=== PATIENT | female | born 1990 | race Caucasian/White ===

== ENCOUNTER 2018-09-15 07:35 | Emergency (ER) | payer SELFPAY ==
--- OUTSIDE RECORDS SUMMARY | 2018-09-15 07:37 | XMS REPORT ---
:1990 [facility] Address [address] [place] [address] [place] [id number] Care Team Providers Name Role Phone Unavailable Unavailable Unavailable Problems This patient has no known problems. Allergies, Adverse Reactions, Alerts This patient has no known allergies or adverse reactions. Medications This patient has no known medications.
--- OUTSIDE RECORDS SUMMARY | 2018-09-15 07:37 | XMS REPORT | Summary of Care ---
:1990 Author Organization [facility] Address [address] [place] [id number] Care Team Providers Name Role Phone Rosario Cortez CHARGER OPERATOR Primary Care Provider Reason for Visit Reason Comments Assessment constipation / nausea Encounter Details Date Type Department Care Team Description 09/10/2018 [facility]phone [facility], Assessment [place] CHARGER OPERATOR (constipation / [address] nausea) [place], [place] [address] [address] [address] [phone] [place] [id number] Allergies No Known Allergiesdocumented as of this encounter (statuses as of 09/10/2018) Medications Medication Sig Dispensed Refills Start Date End Date Status traMADOL 50 mg tablet Take 1 tablet by 12 tablet 0 05/10/2017 Active mouth every 4 (four) hours as needed for Pain (scale 1-3). ibuprofen 800 mg Take 1 tablet by 45 tablet 0 05/10/2017 Active tablet mouth every 6 (six) hours as needed for Pain (scale 1-3) or Pain (scale 4-6). FLUoxetine (PROZAC) Take 1 capsule by 30 capsule 0 07/24/2017 Active 20 mg mouth daily. capsuleIndications: depression documented as of this encounter (statuses as of 09/10/2018) Active Problems Problem Noted Date Right tubal without intrauterine 05/10/2017 Pelvic pain 05/10/2017 Hemoperitoneum due to rupture of right tubal ectopic 05/10/2017 Female pelvic peritoneal adhesions 05/10/2017 Adhesions involving left fallopian tube 05/10/2017 Adhesions involving right fallopian tube 05/10/2017 Well woman exam with routine gynecological exam 04/02/2016 BV (bacterial vaginosis) 10/24/2014 Tobacco use disorder 12/16/2012 documented as of this encounter (statuses as of 09/10/2018) Resolved Problems Problem Noted Date Resolved Date Encounter for routine gynecological examination 10/24/2014 04/02/2016 Overview: ICD10 Diagnosis Term Sec Reporting Consultant Utility Screening for STD (sexually transmitted disease) 10/24/2014 04/02/2016 Surveillance of previously prescribed contraceptive pill 10/24/20142017 Overweight 10/24/2014 04/02/2016 Overview: ICD10 Diagnosis Term Sec Reporting Consultant Utility Seeking 12/22/2012 10/24/2014 Metrorrhagia 12/16/2012 10/24/2014 documented as of this encounter (statuses as of 09/10/2018) Immunizations Name Administration Dates Next Due Td 02/16/2010 documented as of this encounter Social History Tobacco Use Types Packs/Day Years Used Date Current Some Day Smoker Cigarettes Smokeless Tobacco: Never Used Comments: smokes occasionally when she drinks Alcohol Use Drinks/Week oz/Week Comments Yes 0 Standard drinks or equivalent 0.0 socially Sex Assigned at Date Recorded Not on file Job Start Date Occupation Industry Not on file Not on file Not on file Travel History Travel Start Travel End No recent travel history available. documented as of this encounter Last Filed Vital Signs Not on filedocumented in this encounter Plan of Treatment Date Type Specialty Care Team Description 09/13/2018 [facility]2018 Initial Visit OB Satellites Zeynep Torres, CHARGER OPERATOR [address] [facility] [place] [address] [phone] Health Maintenance Due Date Last Done Comments VARICELLA VACCINES (1 of 2 - 2001 13+ 2-dose series) DTaP,Tdap,and Td Vaccines (1 02/17/2010 02/16/2010 - Tdap) INFLUENZA VACCINE 10/17/2018 PAP SMEAR 04/02/2019 04/02/2016, 12/16/2012 PNEUMOCOCCAL 0-64 YEARS Aged Out No longer eligible based COMBINED SERIES on patient's age to complete this topic documented as of this encounter Results Not on filedocumented in this encounter Insurance Payer Benefit Plan / Subscriber ID Effective Dates Phone Address Type Group [employer] MEDICAID OF xxxxxxxxx 2017-Present [phone] [place] [id number] [place] [phone] documented as of this encounter Advance Directives Name Relationship Healthcare Agent Communication Relationship Brooks Reyes Significant Other Primary healthcare agent Pema Brewer Mother Primary healthcare agent [phone]
--- OUTSIDE RECORDS SUMMARY | 2018-09-15 07:38 | XMS REPORT | Summary of Care ---
:1990 Author Organization [facility] Address [address] [place] [address] Care Team Providers Name Role Phone Zeynep Torres [facility] Primary Care Provider Reason for Visit Reason Comments New OB Visit Encounter Details Date Type Department Care Team Description 09/13/2018 Initial [facility]- Zeynep Torres High-risk in first trimester (Primary Dx); Visit RUDY Acosta BMI 30.0-30.9,adult; [address] History of delivery, currently ; [place], [place] A History of ectopic ; [id number] [place], [place] Obesity affecting in first trimester; [phone] [id number] Constipation, unspecified constipation type [phone] Allergies No Known Allergiesdocumented as of this encounter (statuses as of 09/13/2018) Medications Medication Sig Dispensed Refills Start Date End Date Status Take by 0 Active vits4/iron-FA/dss mouth. /dha (CITRANATAL DHA ORAL) traMADOL 50 mg Take 1 tablet 12 tablet 0 05/10/2017 09/13/2018 Discontinued tablet by mouth every 4 (four) hours as needed for Pain (scale 1-3). ibuprofen 800 mg Take 1 tablet 45 tablet 0 05/10/2017 09/13/2018 Discontinued tablet by mouth every 6 (six) hours as needed for Pain (scale 1-3) or Pain (scale 4-6). FLUoxetine Take 1 capsule 30 capsule 0 07/24/2017 09/13/2018 Discontinued (PROZAC) 20 mg by mouth capsuleIndication daily. s: depression documented as of this encounter (statuses as of 09/13/2018) Active Problems Problem Noted Date High risk , antepartum 09/13/2018 History of delivery, currently 09/13/2018 Obesity affecting in first trimester 09/13/2018 History of ectopic 05/10/2017 Female pelvic peritoneal adhesions 05/10/2017 Adhesions involving left fallopian tube 05/10/2017 Adhesions involving right fallopian tube 05/10/2017 Tobacco use disorder 12/16/2012 Estimated Date of Delivery Comments Yes 05/14/2019 documented as of this encounter (statuses as of 09/13/2018) Resolved Problems Problem Noted Date Resolved Date Pelvic pain 05/10/2017 09/13/2018 Hemoperitoneum due to rupture of right tubal ectopic 05/10/2017 09/13/2018 Well woman exam with routine gynecological exam 04/02/2016 09/13/2018 Encounter for routine gynecological examination 10/24/2014 04/02/2016 Overview: ICD10 Diagnosis Term Outreach Liaison Utility Screening for STD (sexually transmitted disease) 10/24/2014 04/02/2016 Surveillance of previously prescribed contraceptive pill 10/24/20142017 Overweight 10/24/2014 04/02/2016 Overview: ICD10 Diagnosis Term Outreach Liaison Utility BV (bacterial vaginosis) 10/24/2014 09/13/2018 Seeking 12/22/2012 10/24/2014 Metrorrhagia 12/16/2012 10/24/2014 documented as of this encounter (statuses as of 09/13/2018) Immunizations Name Administration Dates Next Due Td 02/16/2010 documented as of this encounter Social History Tobacco Use Types Packs/Day Years Used Date Former Smoker Cigarettes Quit: 09/13/2017 Smokeless Tobacco: Never Used Tobacco Cessation: Counseling Given: Yes Alcohol Use Drinks/Week oz/Week Comments Yes 0 Standard drinks or equivalent 0.0 socially Estimated Date of Delivery Comments Yes 05/14/2019 Sex Assigned at Date Recorded Not on file Job Start Date Occupation Industry Not on file Not on file Not on file Travel History Travel Start Travel End No recent travel history available. documented as of this encounter Last Filed Vital Signs Vital Sign Reading Time Taken Comments Blood Pressure 115/77 09/13/2018 3:12 PM CDT Pulse 82 09/13/2018 3:12 PM CDT Temperature 37 C (98.6 F) 09/13/2018 3:12 PM CDT Respiratory Rate 16 09/13/2018 3:12 PM CDT Oxygen Saturation - - Inhaled Oxygen Concentration - - Weight 81.4 kg (179 lb 8 oz) 09/13/2018 3:12 PM CDT Height 163.8 cm (5' 4.5") 09/13/2018 3:12 PM CDT Body Mass Index 30.34 09/13/2018 3:12 PM CDT documented in this encounter Progress Notes Zeynep Torres, SUBCONTRACT MANAGER - 09/13/2018 2:30 PM CDT Chief complaint: Chief Complaint Patient presents with New OB Visit CC: Initial Visit Lenora Brewer is a 28 year old, , /White female. Patient's last menstrual period was 08/07/2018 (exact date). She is 5w2d with a suspected intrauterine . Her Estimated Date of Delivery: 05/14/19. She is being seen today for her first obstetrical visit. She complains today of mild cramping and constipation. Last BM this AM, has not tried any medications. Denies vaginal bleeding, nausea or vomiting. Denies current physical, emotional or sexual abuse. Patient denies recent foreign travel. OB History T1 L1 SAB0 TAB0 Ectopic1 Multiple0 Live Births1 Name of Baby 1: Not recorded Date: 2007 GA: 41w0d Delivery: Section Apgar1: Not recorded Apgar5: Not recorded Living: Living Name of Baby 2: Not recorded Date: 05/10/17 GA: Not recorded Delivery: Ectopic Apgar1: Not recorded Apgar5: Not recorded Living: Not recorded Name of Baby 3: Not recorded Date: Not recorded GA: Not recorded Delivery: Not recorded Apgar1: Not recorded Apgar5: Not recorded Living: Not recorded Histories OB History Para Term AB Living 3 1 1 0 1 1 SAB TAB Ectopic Multiple Live Births 0 0 1 0 1 # Outcome Date GA Lbr Ernesto/2nd Weight Sex Delivery Anes PTL Lv 3 Current 2 Ectopic 05/10/17 1 Term 2007 41w0d F SEC ASHLEY Complications: Failure to Progress in First Stage Past Medical History: Diagnosis Date Anemia 2007 during BV (bacterial vaginosis) 10/24/2014 Chlamydia 2012 Metrorrhagia 12/16/2012 when she had the mirena iud, resolved Pap smear abnormality of cervix 2007 Tobacco use disorder 12/16/2012 Family History Problem Relation Age of Onset Hypertension Father No Significant Medical Problems Maternal Grandfather No Significant Medical Problems Mother No Significant Medical Problems Sister No Significant Medical Problems Brother No Significant Medical Problems Maternal Aunt No Significant Medical Problems Maternal Uncle No Significant Medical Problems Paternal Aunt No Significant Medical Problems Paternal Uncle Cancer Maternal Grandmother No Significant Medical Problems Paternal Grandmother No Significant Medical Problems Paternal Grandfather Arthritis NoFHx Asthma NoFHx defects NoFHx Breast Cancer NoFHx Colon Cancer NoFHx Ovarian Cancer NoFHx Uterine Cancer NoFHx Depression NoFHx Diabetes NoFHx Genetic NoFHx Heart NoFHx High cholesterol NoFHx Mental retardation NoFHx Neurological NoFHx Osteoporosis NoFHx Psychiatry NoFHx Other - see comments NoFHx Family Status Relation Name Status Fa Alive MGFa Mo Alive Sis Alive Bro Alive MAunt Alive MUnc Alive PAunt Alive PUnc Alive MGMo PGMo PGFa NoFHx (Not Specified) Past Surgical History: Procedure Laterality Date SECTION 2007 DIAGNOSTIC LAPAROSCOPY 05/10/2017 LAPAROSCOPIC ECTOPIC REMOVAL 05/10/2017 LAPAROSCOPIC ECTOPIC REMOVAL N/A 05/10/2017 Surgeon: Citlalli Pan MD; Location: [facility] Social History Socioeconomic History Marital status: Single Spouse name: Not on file Number of children: Not on file Years of education: Not on file Highest education level: Not on file Occupational History Not on file Social Needs Financial resource strain: Not on file Food insecurity: Worry: Not on file Inability: Not on file Transportation needs: Medical: Not on file Non-medical: Not on file Tobacco Use Smoking status: Former Smoker Types: Cigarettes Last attempt to quit: 09/13/2017 Years since quittin.0 Smokeless tobacco: Never Used Substance and Sexual Activity Alcohol use: Yes Alcohol/week: 0.0 oz Comment: socially Drug use: No Sexual activity: Yes Partners: Male control/protection: None Comment: last sexual intercourse 09/11/2018 Lifestyle Physical activity: Days per week: Not on file Minutes per session: Not on file Stress: Not on file Relationships Social connections: Talks on phone: Not on file Gets together: Not on file Attends sabianist service: Not on file Active member of club or organization: Not on file Attends meetings of clubs or organizations: Not on file Relationship status: Not on file Intimate partner violence: Fear of current or ex partner: Not on file Emotionally abused: Not on file Physically abused: Not on file Forced sexual activity: Not on file Other Topics Concern Not on file Social History Narrative Worship preference none. Patient lives with partner and child. Social History Substance and Sexual Activity Sexual Activity Yes Partners: Male control/protection: None Comment: last sexual intercourse 09/11/2018 Genetic Screen Autism / Mental Retardation: No Lyndsay Disease: No Congenital Heart Defect: No Cystic Fibrosis: No Down Syndrome: No Familial Dysautonomia: No Hemophilia or other Blood Disorders: No [place] Chorea: No Maternal Metabolic Disorder--specify (eg. Type 1 Diabetes, PKU): No Muscular Dystrophy: No Neural Tube Defect: No Recurrent Loss or a Stillbirth: No Sickle Cell Disease or Trait: No Jacques Sachs: No Teratological Substances (specify type & strength/dose) since LMP: No Thalassemia: No Other Inherited Genetic or Chromosomal Disorder (specify): No No Significant History of Genetic Disorders: No Significant History of Genetic Disorders Labs Labs are pending. Radiology Radiology pending. Allergies Lenora has No Known Allergies. Medications Lenora has a current medication list which includes the following prescription(s): vits4/iron-fa/dss/dha. Review of Systems Constitutional: Negative. Negative for appetite change, fatigue and fever. HENT: Negative. Eyes: Negative. Negative for visual disturbance. Respiratory: Negative. Breasts: Negative. Cardiovascular: Negative. Negative for palpitations and leg swelling. Gastrointestinal: Positive for constipation. Negative for abdominal pain, diarrhea, nausea and vomiting. Genitourinary: Negative. Negative for dysuria, vaginal bleeding, vaginal discharge and pelvic pain. Musculoskeletal: Negative. Skin: Negative. Negative for rash. Neurological: Negative. Negative for dizziness, light-headedness and headaches. Psychiatric/Behavioral: Negative. Endocrine: Endocrine negative BP 115/77 | Pulse 82 | Temp 37 C (98.6 F) | Resp 16 | Ht 5' 4.5" (1.638 m) | Wt 179 lb 8 oz(81.4 kg) | LMP 08/07/2018 (Exact Date) | BMI 30.34 kg/m Pregravid BMI: Could not be calculated Physical Exam Vitals reviewed. Constitutional: She is oriented to person, place, and time. She appears well- developed and well-nourished. Her body habitus is normal. See flowsheet Neck: No thyroid nodules and no thyromegaly palpated. Cardiovascular: Regular rate and rhythm. No murmur auscultated. No peripheral edema present. Pulmonary/Chest: Breath sounds clear to auscultation. Normal inspiratory effort. Abdominal: Abdomen is soft. No mass palpated. No tenderness present. There is no hepatosplenomegaly. Neuro/Psychiatric: She has a normal mood and affect. She is oriented to person, place, and time. Skin: Skin normal. No lesion and no rash present. Tattoos and bilateral nipple piercings present Genitourinary Comments: Patient daughter remains in room during exam per patient preference Breast: Right breast exhibits no mass, no nipple discharge and no tenderness. Left breast exhibits no mass, no nipple discharge and no tenderness. Normal left breast and normal right breast External genitalia: Normal external genitalia appropriate for age. No labial lesion. Bladder: No tenderness. Normal bladder Vagina:Normal vagina. No lesion inspected. No abnormal vaginal discharge found. Cervix: Normal cervix. No lesion. No tenderness and no discharge present. Uterus: Uterus is normal size, normal position and non-tender. Normal uterus Adnexa: Right adnexa without tenderness. Left adnexa without tenderness. Normal left adnexa and normal right adnexa PHYSICAL: General Exam: HEENT: Normal Thyroid: Normal Lymph Node: Normal Neurological: Normal Heart: Normal Lungs: Normal Breasts: Normal Abdomen: Normal Skin: Normal Extremities: Normal Pelvic Exam: Vulva: Normal Vagina: Normal Cervix: Normal SVE closed/thick/high Membrane status: Intact Uterus: 5 Weeks Adnexa: Normal Rectum: Normal Spines: Average Subpubic Arch: Normal Assessment/Plan 1. High-risk in first trimester 5w2d TWG discussed Discussed use of Deet Repellent Initiate Vitamins Increase Fluid Intake. Minimum of 8 water bottles daily. Pt to notify clinic when insurance active to order dating US - POCT TEST - POCT URINALYSIS W/O SPECIFIC GRAVITY - CBC WITH DIFF - HEPATITIS B SURFACE ANTIGEN - HIV 1/2 AG-AB WITH REFLEX - WORKUP, BLOOD BANK - RUBELLA SCREEN (SAM) IGG - GALV ONLY - SYPHILIS IGG/IGM - URINE CULTURE - VZV ANTIBODY SCREEN - Glucose 1 Hour Post Prandial - PAP Smear-Liquid Based - HIGH RISK HPV-THIN PREP - GC & CHLAMYDIA AMPLIFIED ASSAY - POCT URINALYSIS W/O SPECIFIC GRAVITY; Standing - CBC WITH DIFFERENTIAL 2. BMI 30.0-30.9,adult The patient is asked to make an attempt to improve diet and exercise patterns to aid in medical management of this problem. 3. History of delivery, currently Briefly discussed ERCS vs TOLAC, given extensive adhesions noted during laparoscopy, patient strongly considering ERCS 4. History of ectopic 04/2017 requiring surgical intervention. Per op report, right fallopian tube patency likely maintained. 5. Obesity affecting in first trimester The patient is asked to make an attempt to improve diet and exercise patterns to aid in medical management of this problem. 6. Constipation, unspecified constipation type Reviewed relief measures and safe medications in Return to clinic in 4 weeks. Discussed treatment options. Reviewed patient instructions and provided printed copy. at 5w2d This visit did not involve counseling and coordination that comprised more than 50% of the visit time. Nina Mariscal LVN - 09/13/2018 2:30 PM CDTPatient is 28 year old female here for current . Patient is . 1) Previous delivery methods 2) Patient is experiencing mild cramping 3) Patient is not experiencing bleeding. 4) LMP 08/07/2018 5) Last Pap was:04/02/2016 Results: negative 6) Have you had a flu vaccine this season? no 7) PPD candidate? no 8) Patient complains of constipation, and mild cramping. 9) Patient denies history of physical, emotional, or sexual abuse. Patient states she currently feels safe at home. NOB packet given and reviewed with patient. documented in this encounter Plan of Treatment Date Type Specialty Care Team Description 10/11/2018 Routine Visit OB Satellites Zeynep Torres, SUBCONTRACT MANAGER [address] [place] [address] [phone] Name Type Priority Associated Diagnoses Date/Time CBC WITH DIFF LAB Routine High-risk in 09/13/2018 4:24 PM first trimester CDT HEPATITIS B SURFACE LAB Routine High-risk in 09/13/2018 4:24 PM ANTIGEN first trimester CDT HIV 1/2 AG-AB WITH REFLEX LAB Routine High-risk in 09/13/2018 4: 24 PM first trimester CDT RUBELLA SCREEN (SAM) IGG LAB Routine High-risk in 09/13/2018 4 :24 PM first trimester CDT GALV ONLY - SYPHILIS LAB Routine High-risk in 09/13/2018 4:24 PM IGG/IGM first trimester CDT URINE CULTURE LAB Routine High-risk in 09/13/2018 4:24 PM first trimester CDT VZV ANTIBODY SCREEN LAB Routine High-risk in 09/13/2018 4:24 PM first trimester CDT Glucose 1 Hour Post LAB Routine High-risk in 09/13/2018 4:24 PM Prandial first trimester CDT PAP Smear-Liquid Based LAB Routine High-risk in 09/13/2018 4:24 PM first trimester CDT HIGH RISK HPV-THIN PREP LAB Routine High-risk in 09/13/2018 4: 24 PM first trimester CDT GC & CHLAMYDIA AMPLIFIED LAB Routine High-risk in 09/13/2018 4: 24 PM ASSAY first trimester CDT CBC WITH DIFFERENTIAL LAB Routine High-risk in 09/13/2018 4:24 PM first trimester CDT Name Type Priority Associated Diagnoses Order Schedule WORKUP, BLOOD LAB Routine High-risk in Ordered: 2018 BANK first trimester POCT URINALYSIS W/O LAB Routine High-risk in 20 Occurrences starting SPECIFIC GRAVITY first trimester 09/13/2018 until 09/14/2019 Health Maintenance Due Date Last Done Comments VARICELLA VACCINES (1 of 2 - 2001 13+ 2-dose series) DTaP,Tdap,and Td Vaccines (1 02/17/2010 02/16/2010 - Tdap) INFLUENZA VACCINE 10/17/2018 PAP SMEAR 04/02/2019 04/02/2016, 12/16/2012 PNEUMOCOCCAL 0-64 YEARS Aged Out No longer eligible based COMBINED SERIES on patient's age to complete this topic documented as of this encounter Procedures Procedure Name Priority Date/Time Associated Comments Diagnosis POCT URINALYSIS W/O Routine 09/13/2018 3:16 PM High-risk Results for this SPECIFIC GRAVITY CDT in first trimester procedure are in the results section. POCT TEST Routine 09/13/2018 3:16 PM High-risk Results for this CDT in first trimester procedure are in the results section. documented in this encounter Results POCT URINALYSIS W/O SPECIFIC GRAVITY (09/13/2018 3:16 PM CDT) POCT PH U 6 5 - 8 mg/dl POCT U LEUK EST neg Negative - Negative POCT U NIT neg Negative - Negative POCT U PROT trace Negative - Negative POCT U GLU neg Negative - Negative POCT U KETONE neg Negative - Negative POCT U BLD neg Negative - Negative Specimen Urine - URINE, CLEAN CATCH POCT TEST (09/13/2018 3:16 PM CDT) POCT PREG Positive On board controls acceptable Yes with C Line POCT PREG LOT # POCT PREG TEST DATE Specimen Urine - URINE, CLEAN CATCH documented in this encounter Visit Diagnoses Diagnosis High-risk in first trimester - Primary BMI 30.0-30.9,adult Body Mass Index 30.0-30.9, adult History of delivery, currently Previous delivery, unspecified as to episode of care or not applicable History of ectopic Personal history of other genital system and obstetric disorders Obesity affecting in first trimester Constipation, unspecified constipation type documented in this encounter Insurance Payer Benefit Plan / Subscriber ID Effective Phone Address Type Group Dates MEDICAID MEDICAID PENDING 2018-[address] [place] [address] documented as of this encounter Advance Directives Name Relationship Healthcare Agent Communication Relationship Brooks Reyes Significant Other Primary healthcare agent Pema Brewer Mother Primary healthcare agent [phone]
--- OUTSIDE RECORDS SUMMARY | 2018-09-15 07:38 | XMS REPORT | Summary of Care ---
:1990 Author Organization [facility] - Health Address [address] [place] [address] Care Team Providers Name Role Phone Zeynep Torres Primary Care Provider Encounter Details Date Type Department Care Team Description 09/13/2018 Orders Only [facility] Doctor Unassigned, No [address] [facility] [place] [address] [address] [place] [address] Allergies No Known Allergiesdocumented as of this [...] of 09/13/2018) Active Problems Problem Noted Date Right tubal [...] examination 10/24/2014 04/02/2016 Overview: ICD10 Diagnosis Term Manager Payer Utility Screening for STD (sexually transmitted disease) 10/24/2014 04/02/2016 Surveillance of previously prescribed contraceptive pill 10/24/20142017 Overweight 10/24/2014 04/02/2016 Overview: ICD10 Diagnosis Term Manager Payer Utility Seeking 12/22/2012 10/24/2014 Metrorrhagia 12/16/2012 10/24/2014 [...] Date Type Specialty Care Team Description 09/13/2018 Initial Visit OB Satellites Zeynep Torres, FOUNTAIN WORKER [address] [facility] [place] [address] [phone] Health Maintenance Due Date Last Done Comments VARICELLA VACCINES (1 of 2 - 2001 13+ 2-dose series) DTaP,Tdap,and Td Vaccines (1 02/17/2010 02/16/2010 - Tdap) INFLUENZA VACCINE 10/17/2018 PAP SMEAR 04/02/2019 04/02/2016, 12/16/2012 PNEUMOCOCCAL 0-64 YEARS Aged Out No longer eligible based COMBINED SERIES on patient's age to complete this topic documented as of this encounter Procedures Procedure Name Priority Date/Time Associated Diagnosis Comments ASSIGNMENT OF BENEFITS Routine 09/13/2018 2:27 PM CDT documented in this encounter Results Not on filedocumented in this encounter Insurance Payer Benefit Plan / Subscriber ID Effective Phone Address Type Group Dates MEDICAID MEDICAID PENDING 2018-[address] Pending PENDING PENDING [facility] [place] [address] documented as of this encounter Advance Directives Name Relationship Healthcare Agent Communication Relationship Brooks Reyes Significant Other Primary healthcare agent Pema Brewer Mother Primary healthcare agent [email or web address]
[2018-09-15 08:26] LABS: Absolute Lymphocytes (CBC) 1.5 K/uL (0.7-4.9); Basophils % 0.4 % (0-1.3); Hematocrit 37.1 % (36.0-45.0); Lymphocytes % 16.6 % (15.3-44.8); MPV 7.5 fL (7.6-11.3); RBC Red Blood Cell Count 4.63 M/uL (3.86-4.86)
[2018-09-15] MEDS ORDERED: ONDANSETRON 4 MG/2 ML VIAL ONE (08:40)
[2018-09-15] MEDS ORDERED: MORPHINE 4 MG/ML SYR ONE (08:40)
[2018-09-15 08:43] LABS: Urine Blood NEGATIVE (NEG); Urine Glucose NEGATIVE (NEG); Urine Protein NEGATIVE (NEG); Urine pH 8.5 (5.0-7.0)
[2018-09-15 08:54] LABS: BUN Blood Urea Nitrogen 10 mg/dL (7-18); Bicarbonate 27 mmol/L (21-32); Glucose Level 101 mg/dL (74-106); HCG, Quantitative 1797 mIU/mL (1-3); Potassium 3.6 mmol/L (3.5-5.1); Sodium Level 139 mmol/L (136-145)
[2018-09-15 09:00] LABS: Urine Amorphous Sediment 1+ /HPF (NONE SEEN); Urine Bacteria <20 /HPF (<20); Urine Culture Reflex Order NOT NEEDED; Urine Mucus 1+ /HPF (NONE SEEN); Urine RBC <5 /HPF (NONE SEEN)
--- NOTE | 2018-09-15 09:23 | RAD REPORT ---
EXAM DESCRIPTION: US - Transvaginal OB - 09/15/2018 9:03 am CLINICAL HISTORY: with abdominal pain COMPARISON: None. FINDINGS: The uterus 7 x 4 x 5 centimeters. The endometrial stripe measures 17 millimeters. A 2 mil limeter round fluid collection is present within the endometrium. No yolk sac is seen. No pole demonstrated nabothian cysts cervix Ovaries are normal in size and echotexture. A 2.3 centimeter right ovarian cyst. No abnormality seen in the right or left adnexa. Posterior to the uterus is a 5 x 2.5 centimeter echogenic structure IMPRESSION: 2 millimeter round fluid collection within the endometrium may represent a gestational s ac or small amount of fluid. 5 x 2.5 centimeter echogenic structure posterior to the uterus may represent blood or stool within esther wel. These findings could represent an early intrauterine in which the gestational sac is not de finitively seen. and ectopic can also result in this appearance. This all should b e correlated clinically and with serial beta HCG levels. Followup endovaginal sonogram in 1 week may be helpful
[2018-09-15] MEDS ORDERED: GLYCERIN PEDI RECTAL SUPP PR ONE (10:56)
[2018-09-15] MEDS ORDERED: FLEET ENEMA ADULT PR ONE (10:56)
--- NOTE | 2018-09-15 13:31 | ER ---
Nurse's Notes [facility] Name: Lenora Brewer Age: 28 yrs Sex: Female : 1990 Arrival Date: 09/15/2018 Time: 07:37 Bed 7 Private MD: Diagnosis: Lower abdominal pain, unspecified;Early IUP vs possible ectopic Presentation: 09/15 07:46 Presenting complaint: Patient states: lower abdominal pain and rectal pressure that ss began this morning at 0500. Patient reports she is 5.5 weeks , and has had constipation and hemorrhoids with this . Denies vaginal bleeding, N/V. Last BM was yesterday. Transition of care: patient was not received from another setting of care. Onset of symptoms was September 15, 2018. Risk Assessment: Do you want to hurt yourself or someone else? Patient reports no desire to harm self or others. Initial Sepsis Screen: Does the patient meet any 2 criteria? RR > 20 per min. Does the patient have a suspected source of infection? No. Patient's initial sepsis screen is negative. Care prior to arrival: None. 07:46 Method Of Arrival: Ambulatory ss 07:46 Acuity: SERG 3 ss Historical: - Allergies: 07:51 No Known Allergies; ss - Home Meds: 07:51 Vitamin Oral tab 1 tab once daily [Active]; ss - PMHx: 07:51 None; ss - PSHx: 07:51 c section; Ectopic ; ss - Immunization history:: Adult Immunizations up to date. - Social history:: Smoking status: Patient/guardian denies using tobacco, the patient reports quitting approximately 1 years ago. - Family history:: not pertinent. - Ebola Screening: : Patient denies exposure to infectious person Patient denies travel to an Ebola-affected area in the 21 days before illness onset. - Hospitalizations: : No recent hospitalization is reported. Screenin:28 Abuse screen: Denies threats or abuse. Denies injuries from another. Nutritional ph screening: No deficits noted. Tuberculosis screening: No symptoms or risk factors identified. Fall Risk None identified. Assessment: 08:15 General: Appears in no apparent distress. uncomfortable, Behavior is cooperative, ph anxious, Denies fever, feeling ill. Pain: Complains of pain in buttocks and suprapubic area. Neuro: Level of Consciousness is awake, alert, obeys commands, Oriented to person, place, time, situation. Cardiovascular: Capillary refill < 3 seconds in bilateral fingers Patient's skin is warm and dry. Respiratory: Airway is patent Respiratory effort is even, unlabored. GI: Abdomen is round non-distended, Bowel sounds present X 4 quads. Abd is soft X 4 quads Reports lower abdominal pain, constipation, nausea, rectal pain Patient currently denies diarrhea, vomiting. : Reports pain in suprapubic area Denies burning with urination, discharge, urinary frequency, vaginal bleeding. Derm: Skin is intact, is healthy with good turgor, Skin is pink, warm \T\ dry. Musculoskeletal: Circulation, motion, and sensation intact. Range of motion: intact in all extremities. 09:30 Reassessment: Patient appears in no apparent distress at this time. Patient and/or ph family updated on plan of care and expected duration. Pain level reassessed. Patient is alert, oriented x 3, equal unlabored respirations, skin warm/dry/pink. 10:19 Reassessment: Patient appears in no apparent distress at this time. Patient and/or ph family updated on plan of care and expected duration. Pain level reassessed. Patient is alert, oriented x 3, equal unlabored respirations, skin warm/dry/pink. 11:30 Reassessment: Patient appears in no apparent distress at this time. Patient and/or ph family updated on plan of care and expected duration. Pain level reassessed. Patient is alert, oriented x 3, equal unlabored respirations, skin warm/dry/pink. 12:45 Reassessment: Patient appears in no apparent distress at this time. Patient and/or ph family updated on plan of care and expected duration. Pain level reassessed. Patient is alert, oriented x 3, equal unlabored respirations, skin warm/dry/pink. Pt up to bedside commode, small amount of stool and large amount of liquid noted, enema was previously administered. 13:54 Reassessment: Patient appears in no apparent distress at this time. Patient and/or ph family updated on plan of care and expected duration. Pain level reassessed. Patient is alert, oriented x 3, equal unlabored respirations, skin warm/dry/pink. Pt d/c home. 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 Vital Signs: 07:51 BP 128 / 91; Pulse 81; Resp 22; Pulse Ox 100% on R/A; Weight 81.19 kg; Height 5 ft. 4 ss in. (162.56 cm); Pain 9/10; 07:54 Temp 97.7(O); ss 09:26 BP 108 / 74; Pulse 85; Resp 19; Pulse Ox 98% on R/A; jb1 11:00 BP 125 / 68; Pulse 87; Resp 18; Pulse Ox 98% on R/A; ph 12:30 BP 118 / 76; Pulse 83; Resp 16; Pulse Ox 100% on R/A; ph 13:30 BP 112 / 72; Pulse 83; Resp 16; Temp 97.5; Pulse Ox 99% on R/A; ph 07:51 Body Mass Index 30.72 (81.19 kg, 162.56 cm) ED Course: 07:37 Patient arrived in ED. mr 07:40 Oscar Lomeli MD is Attending Physician. rn 07:50 Triage completed. ss 07:51 Arm band placed on right wrist. ss 08:04 Angelina Andrea, RN is Primary Nurse. ph 08:20 Initial lab(s) drawn, by me, sent to lab. Urine collected:. Inserted saline lock: 20 ph gauge in right antecubital area, using aseptic technique. 08:30 Patient has correct armband on for positive identification. Placed in gown. Bed in low ph position. Call light in reach. Side rails up X 1. Pulse ox on. NIBP on. Door closed. Noise minimized. Warm blanket given. Pillow given. Head of bed elevated. 08:48 US Transvaginal Ob In Process Unspecified. 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 ph Administered Medications: 08:30 Drug: morphine 4 mg Route: IVP; Site: right antecubital; ph 09:00 Follow up: Response: No adverse reaction; Pain is decreased ph 08:30 Drug: Zofran 4 mg Route: IVP; Site: right antecubital; ph 09:00 Follow up: Response: No adverse reaction; Nausea is decreased ph 10:46 Drug: Glycerin (Adult) Suppository 1 supp Route: OK; ph 14:01 Follow up: Response: No adverse reaction ph 11:53 Drug: Fleet Enema 133 ml Route: OK; ph 14:01 Follow up: Response: No adverse reaction ph Outcome: 13:30 Discharge ordered by rn 14:01 Patient left the ED. ph Signatures: Dispatcher [employer] ED DixonDickson pinto Stacie Mariscal mr YaniOscar MD MD rn Smirch, Shelby, RN RN ss Hall, Patricia, RN RN ph Corrections: (The following items were deleted from the chart) 07:55 07:51 BP 128 / 71; Pulse 81bpm; Resp 22bpm; Pulse Ox 100% RA; 81.19 kg; Height 5 ft. 4 ss in.; BMI: 30.7; Pain 9/10; ss
--- NOTE | 2018-09-15 13:32 | EDPHYS ---
Physician Documentation [facility] Name: Lenoar Brewer Age: 28 yrs Sex: Female : 1990 Arrival Date: 09/15/2018 Time: 07:37 Bed 7 Private MD: ED Physician Oscar Lomeli HPI: 09/15 07:46 This 28 yrs old Female presents to ER via Unassigned with complaints of rn Abdominal Pain, 5wks . 07:46 The patient presents to the emergency department with abdominal pain, of the suprapubic rn area, that started this morning, described as crampy. The estimated gestational age is 5.5 weeks. course: care: at a clinic, Leakage of Fluid: none appreciated, Ultrasound: the patient has not had an ultrasound. Previous pregnancies: in previous pregnancies patient has had. The patient has not experienced similar symptoms in the past. The patient has been recently seen by a physician:. Reports lower abd pain and cramping, began this AM, no trauma, no vaginal bleeding, + hx of ectopic in past. Reports feels like "bowling ball in my butt". . Historical: - Allergies: 07:51 No Known Allergies; ss - Home Meds: 07:51 Vitamin Oral tab 1 tab once daily [Active]; ss - PMHx: 07:51 None; ss - PSHx: 07:51 c section; Ectopic ; ss - Immunization history:: Adult Immunizations up to date. - Social history:: Smoking status: Patient/guardian denies using tobacco, the patient reports quitting approximately 1 years ago. - Family history:: not pertinent. - Ebola Screening: : Patient denies exposure to infectious person Patient denies travel to an Ebola-affected area in the 21 days before illness onset. - Hospitalizations: : No recent hospitalization is reported. ROS: 07:46 Constitutional: Negative for fever, chills, and weight loss, Eyes: Negative for injury, rn pain, redness, and discharge, Cardiovascular: Negative for chest pain, palpitations, and edema, Respiratory: Negative for shortness of breath, cough, wheezing, and pleuritic chest pain, Abdomen/GI: Negative for nausea, vomiting, diarrhea, and constipation, MS/Extremity: Negative for injury and deformity, Skin: Negative for injury, rash, and discoloration, Neuro: Negative for headache, weakness, numbness, tingling, and seizure. Exam: 07:46 Constitutional: This is a well developed, well nourished patient who is awake, alert, rn crying Head/Face: Normocephalic, atraumatic. Eyes: Pupils equal round and reactive to light, extra-ocular motions intact. Lids and lashes normal. Conjunctiva and sclera are non-icteric and not injected. Cornea within normal limits. Periorbital areas with no swelling, redness, or edema. ENT: MMM Abdomen/GI: soft, mild lower abd tenderness, no rebound, no masses Skin: Warm, dry with normal turgor. Normal color with no rashes, no lesions, and no evidence of cellulitis. MS/ Extremity: Pulses equal, no cyanosis. Neurovascular intact. Full, normal range of motion. Equal circumference. Neuro: Awake and alert, GCS 15, oriented to person, place, time, and situation. Cranial nerves II-XII grossly intact. Motor strength 5/5 in all extremities. Sensory grossly intact. Cerebellar exam normal. Normal gait. Vital Signs: 07:51 BP 128 / 91; Pulse 81; Resp 22; Pulse Ox 100% on R/A; Weight 81.19 kg; Height 5 ft. 4 ss in. (162.56 cm); Pain 9/10; 07:54 Temp 97.7(O); ss 09:26 BP 108 / 74; Pulse 85; Resp 19; Pulse Ox 98% on R/A; jb1 11:00 BP 125 / 68; Pulse 87; Resp 18; Pulse Ox 98% on R/A; ph 12:30 BP 118 / 76; Pulse 83; Resp 16; Pulse Ox 100% on R/A; ph 13:30 BP 112 / 72; Pulse 83; Resp 16; Temp 97.5; Pulse Ox 99% on R/A; ph 07:51 Body Mass Index 30.72 (81.19 kg, 162.56 cm) ss MDM: 07:40 Patient medically screened. rn 09:32 ED course: U/S unclear, possible IUP with pelvic area of fluid vs blood vs stool given rn posterior to uterus. Patient continues to complain of rectal pressure, feels like has to use bathroom. TOld her to try to use bathroom and if successful can repeat u/s to see if resolves. . 10:14 ED course: Rectal exam revealed empty rectal vault, no hemorrhoids to explain rn discomfort. Called Dr. Mathews for consult, no answer. Patient still feels like needs to use bathroom, will try enema to see if helps. . 10:32 ED course: Consulted with Dr. Mathews, will come and evaluate patient, most likely outpt rn serial hcg and u/s with her private OB. . 13:27 Differential diagnosis: ectopic , UTI, constipation. Data reviewed: vital rn signs, nurses notes, lab test result(s), radiologic studies, ultrasound, and as a result, I will discharge patient. Counseling: I had a detailed discussion with the patient and/or guardian regarding: the historical points, exam findings, and any diagnostic results supporting the discharge/admit diagnosis, lab results, radiology results, the need for outpatient follow up, to return to the emergency department if symptoms worsen or persist or if there are any questions or concerns that arise at home. Response to treatment: the patient's symptoms have markedly improved after treatment, and as a result, I will discharge patient. Special discussion: I discussed with the patient/guardian in detail that at this point there is no indication for admission to the hospital. It is understood, however, that if the symptoms persist or worsen the patient needs to return immediately for re-evaluation. Based on the history and exam findings, there is no indication for further emergent testing or inpatient evaluation. I discussed with the patient/guardian the need to see the OB Gyne specialist for further evaluation of the symptoms. ED course: No HCG sent with her labs from private OB, spoke again with Dr. Mathews, she recommends close outpt f/u with [place] OB in [place], patient given return precautions. Patient states this feels different from her previous ectopic, and u/s shows possible intrauterine sac that measure about 4 weeks and is consistent with her LMP. Heterotopic possible but low likelihood. Explained all this to patient, not enough to take to surgery now, understands needs to see her OB today or tomorrow. Return precautions given and understood. Feels much better. . 13:31 ED course: Understands needs repeat HCG and u/s.. rn 09/15 07:45 Order name: Quantitative Hcg; Complete Time: 09:01 rn 09/15 07:45 Order name: Abo/rh Typing; Complete Time: 09:01 rn 09/15 07:45 Order name: Basic Metabolic Panel; Complete Time: 09:01 rn 09/15 07:45 Order name: CBC with Diff; Complete Time: 08:38 rn 09/15 07:45 Order name: Urine Microscopic Only; Complete Time: 09:01 rn 09/15 08:28 Order name: Urine Dipstick--Ancillary (enter results); Complete Time: 09:01 bd 09/15 07:45 Order name: Urine Test (obtain specimen); Complete Time: 08:20 rn 09/15 07:45 Order name: IV Saline Lock; Complete Time: 08:20 rn 09/15 07:45 Order name: US Transvaginal Ob; Complete Time: 09:24 rn 09/15 08:28 Order name: Urine --Ancillary (enter results); Complete Time: 09:01 bd 09/15 07:45 Order name: Labs collected and sent; Complete Time: 08:20 rn 09/15 07:45 Order name: NPO; Complete Time: 07:56 rn 09/15 07:45 Order name: Urine Dipstick-Ancillary (obtain specimen); Complete Time: 08:20 rn Administered Medications: 08:30 Drug: morphine 4 mg Route: IVP; Site: right antecubital; ph 09:00 Follow up: Response: No adverse reaction; Pain is decreased ph 08:30 Drug: Zofran 4 mg Route: IVP; Site: right antecubital; ph 09:00 Follow up: Response: No adverse reaction; Nausea is decreased ph 10:46 Drug: Glycerin (Adult) Suppository 1 supp Route: TN; ph 14:01 Follow up: Response: No adverse reaction ph 11:53 Drug: Fleet Enema 133 ml Route: TN; ph 14:01 Follow up: Response: No adverse reaction ph Disposition: 09/15/18 13:30 Discharged to Home. Impression: Lower abdominal pain, unspecified, Early IUP vs possible ectopic . - Condition is Stable. - Discharge Instructions: Abdominal Pain, Adult, Abdominal Pain During , Ectopic , First Trimester of . - Medication Reconciliation Form, Thank You Letter, Antibiotic Education, Prescription Opioid Use, Work release form form. - Follow up: Private Physician; When: 1 - 2 days; Reason: Recheck today's complaints, Re-evaluation by your physician. - Problem is new. - Symptoms have improved. Signatures: Dispatcher [employer] EDOscar Peoples MD MD rn Smirch, Shelby, RN RN ss Angelina Andrea RN RN ph Corrections: (The following items were deleted from the chart) 14:01 13:30 09/15/2018 13:30 Discharged to Home. Impression: Lower abdominal pain, ph unspecified; Early IUP vs possible ectopic . Condition is Stable. Forms are Medication Reconciliation Form, Thank You Letter, Antibiotic Education, Prescription Opioid Use. Follow up: Private Physician; When: 1 - 2 days; Reason: Recheck today's complaints, Re-evaluation by your physician. Problem is new. Symptoms have improved. rn
== END 2018-09-15 14:01 | disposition home or self-care (01) ==
LOC: ER 07:35
DX: O26.891 Other specified pregnancy related conditions, first trimester (principal); R10.9 Unspecified abdominal pain; Z3A.01 Less than 8 weeks gestation of pregnancy
CPT/HCPCS: 36415; 76817; 80048; 81003; 81015; 81025; 84702; 85025; 86900; 86901; J2405

== ENCOUNTER 2018-09-16 09:27 | Emergency (ER) | payer SELFPAY ==
--- OUTSIDE RECORDS SUMMARY | 2018-09-16 09:29 | XMS REPORT ---
:1990 [facility] Address [address] [place] [address] [place] [id number] Care Team Providers Name Role Phone Unavailable Unavailable Unavailable Problems This patient has no known problems. Allergies, Adverse Reactions, Alerts This patient has no known allergies or adverse reactions. Medications This patient has no known medications.
[2018-09-16] MEDS ORDERED: NA CHLORIDE 0.9% 1,000 ML ONE (10:11)
[2018-09-16 10:36] LABS: Absolute Lymphocytes (CBC) 1.8 K/uL (0.7-4.9); Basophils % 0.6 % (0-1.3); Hematocrit 37.1 % (36.0-45.0); Lymphocytes % 15.3 % (15.3-44.8); MPV 7.7 fL (7.6-11.3); RBC Red Blood Cell Count 4.61 M/uL (3.86-4.86)
[2018-09-16 11:03] LABS: Albumin 3.8 g/dL (3.4-5.0); Bilirubin Direct 0.2 mg/dL (0-0.2); Bilirubin Total 0.7 mg/dL (0.2-1.0); Potassium 3.5 mmol/L (3.5-5.1); Protein, Total 7.4 g/dL (6.4-8.2)
[2018-09-16] MEDS ORDERED: MEPERIDINE HCL 25 MG/0.5 ML ONE ×2 (11:12→14:01)
[2018-09-16] MEDS ORDERED: ONDANSETRON 4 MG/2 ML VIAL ONE (11:12)
--- NOTE | 2018-09-16 12:45 | RAD REPORT ---
EXAM DESCRIPTION: MRI - Pelvis Wo Cont - 09/16/2018 11:52 am CLINICAL HISTORY: Pelvic pain, rectal wall pain, palpable mass on digital examination suspected preg janell approximately 4.5 weeks COMPARISON: Ob ultrasound September 15 TECHNIQUE: Multiplanar imaging of the pelvis performed using T1 weighted, T1 stir and T2 sequencing. No contrast was administered due to the possible status. FINDINGS: Urinary bladder is normal. Normal sized uterus is identified. There are multiple nabothian cysts present. No focal endometrial abnormality. The suspected small gestational sac seen on the derek or day ultrasound is not evident on MR imaging. Right ovary is identified and unremarkable. An 18 millimeter cyst is identified. Left ovary is not un iquely identifiable. Mass of the rectum is not seen. A large heterogeneous mass is present in the left side of the pelvis. This is 9 x 5 cm in cross-secti onal dimension and may be is largest 12-13 cm in craniocaudal dimension. This is seen in the left jaquan e of the pelvis primarily with extension into the cul de sac. This cul de sac inferior margin is like ly what is being palpated on physical examination. The uterus is displaced slightly to the right. The mass extends superiorly along the midline above the level of the well filled urinary bladder. The ma ss is isointense to the uterus and bowel on T1 weighted imaging. The mass is intermediate signal inte nsity primarily on T2 weighted imaging. There are areas of hyperintense and hypointense signal. A dis crete or separate left ovary is not identifiable. Mass may represent a large dermoid/ teratoma. Pelvi c abscess is not suspected. Posterior wall of the rectum shows no thickening or signal abnormality. Soft tissues posterior to the rectal wall towards the sacrum and coccyx shows no abnormal signal. Bones a lower pelvis show no wei picious finding. Urinary bladder is unremarkable. IMPRESSION: A large heterogeneous 12 x 9 x 5 centimeter mass is present in the left-side of the pelv is. Inferior margin extends into the cul de sac believed to be the component that is being palpated o n digital examination. Finding is suspected to be a large dermoid or teratoma arising from the left ovary. Abscess is not cabral spected. Normal-sized uterus is present. The suspected early IUP on prior day ultrasound is not identifiable a s an MR finding. Right ovary contains an 18 millimeter cyst but is otherwise unremarkable. There is no posterior rectal wall thickening and no signal abnormality or mass in the soft tissues be tween the rectum and the sacrum/coccyx.
--- NOTE | 2018-09-16 14:08 | EDPHYS ---
Physician Documentation [facility] Name: Lenora Brewer Age: 28 yrs Sex: Female : 1990 Arrival Date: 09/16/2018 Time: 09:28 Bed 16 Private MD: ED Physician Yainck Hope HPI: 09/16 12:39 This 28 yrs old Female presents to ER via Wheelchair with complaints of jr8 Abdominal Pain. 12:39 The patient presents with abdominal pain in the lower abdomen. Onset: The jr8 symptoms/episode began/occurred acutely, yesterday. The symptoms do not radiate. Associated signs and symptoms: none. The symptoms are described as constant, stabbing. Modifying factors: The symptoms are alleviated by nothing, the symptoms are aggravated by movement. Severity of pain: At its worst the pain was moderate in the emergency department the pain is unchanged. The patient has not experienced similar symptoms in the past. The patient has been recently seen at the [facility] Emergency Department, yesterday, for similar complaints labs were performed, an ultrasound was performed. 13:50 Patient came back today with worsening of pain . 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 - Social history:: Smoking status: Patient/guardian denies using tobacco. - Ebola Screening: : Patient denies exposure to infectious person Patient denies travel to an Ebola-affected area in the 21 days before illness onset. ROS: 13:50 Eyes: Negative for injury, pain, redness, and discharge, ENT: Negative for injury, jr8 pain, and discharge, Neck: Negative for injury, pain, and swelling, Cardiovascular: Negative for chest pain, palpitations, and edema, Respiratory: Negative for shortness of breath, cough, wheezing, and pleuritic chest pain, Back: Negative for injury and pain, MS/Extremity: Negative for injury and deformity, Skin: Negative for injury, rash, and discoloration, Neuro: Negative for headache, weakness, numbness, tingling, and seizure. 13:50 Abdomen/GI: Positive for abdominal pain, Negative for nausea, vomiting, and diarrhea, abdominal distension, anorexia, dysphagia, hematemesis, black/tarry stool, rectal pain, rectal bleeding, bowel incontinence, flatulence. Exam: 13:50 Eyes: Pupils equal round and reactive to light, extra-ocular motions intact. Lids and jr8 lashes normal. Conjunctiva and sclera are non-icteric and not injected. Cornea within normal limits. Periorbital areas with no swelling, redness, or edema. ENT: Nares patent. No nasal discharge, no septal abnormalities noted. Tympanic membranes are normal and external auditory canals are clear. Oropharynx with no redness, swelling, or masses, exudates, or evidence of obstruction, uvula midline. Mucous membranes moist. Neck: Trachea midline, no thyromegaly or masses palpated, and no cervical lymphadenopathy. Supple, full range of motion without nuchal rigidity, or vertebral point tenderness. No Meningismus. Cardiovascular: Regular rate and rhythm with a normal S1 and S2. No gallops, murmurs, or rubs. Normal PMI, no JVD. No pulse deficits. Respiratory: Lungs have equal breath sounds bilaterally, clear to auscultation and percussion. No rales, rhonchi or wheezes noted. No increased work of breathing, no retractions or nasal flaring. Back: No spinal tenderness. No costovertebral tenderness. Full range of motion. Skin: Warm, dry with normal turgor. Normal color with no rashes, no lesions, and no evidence of cellulitis. MS/ Extremity: Pulses equal, no cyanosis. Neurovascular intact. Full, normal range of motion. Neuro: Awake and alert, GCS 15, oriented to person, place, time, and situation. Cranial nerves II-XII grossly intact. Motor strength 5/5 in all extremities. Sensory grossly intact. Cerebellar exam normal. Normal gait. 13:50 Abdomen/GI: Inspection: abdomen appears normal, Bowel sounds: active, all quadrants, Palpation: soft, in all quadrants, moderate abdominal tenderness, in the right lower quadrant and left lower quadrant, mass, is not appreciated, rebound tenderness, is not appreciated, voluntary guarding, is not appreciated, involuntary guarding, is not appreciated, no appreciated organomegaly, Rectal exam: rectal tone normal, Stool: normal, hemorrhoid(s), external, without bleeding, without inflammation, without thrombosis, without pain, mass, is not appreciated, swelling, is not appreciated, tenderness, that is moderate. Vital Signs: 09:37 Pulse 93; Resp 24; Temp 97.1(TE); Pulse Ox 100% on R/A; Weight 81.19 kg; Height 5 ft. 4 ss in. (162.56 cm); Pain 10/10; 09:39 BP 82 / 52; ss 12:30 BP 111 / 75; Pulse 81; Resp 19; Temp 98.0(O); Pulse Ox 100% on R/A; Pain 8/10; rb1 13:30 BP 122 / 85; Pulse 77; Resp 20; Temp 97.9(O); Pulse Ox 100% on R/A; rb1 14:00 BP 118 / 75; Pulse 77; Resp 17; Temp 98.1(O); Pulse Ox 100% on R/A; Pain 7/10; rb1 15:00 BP 119 / 71; Pulse 68; Resp 17; Temp 98.1(O); Pulse Ox 99% on R/A; Pain 6/10; rb1 09:37 Body Mass Index 30.72 (81.19 kg, 162.56 cm) ss MDM: 09:56 Patient medically screened. 14:01 Data reviewed: vital signs, nurses notes, old medical records, lab test result(s), jr8 radiologic studies, MRI. Data interpreted: Pulse oximetry: on room air is 100 %. Interpretation: normal. Counseling: I had a detailed discussion with the patient and/or guardian regarding: the historical points, exam findings, and any diagnostic results supporting the discharge/admit diagnosis, lab results, radiology results, the need to transfer to another facility, [facility] does not immediately have the required specialist. ED course: Spoke with a Dr. Metcalf at [facility] Accepted for surgical evaluation . 09/16 09:56 Order name: Basic Metabolic Panel; Complete Time: 11:03 09/16 09:56 Order name: CBC with Diff; Complete Time: 10:41 09/16 09:56 Order name: Creatinine for Radiology; Complete Time: 11:00 09/16 09:56 Order name: Hepatic Function; Complete Time: 11:03 09/16 09:56 Order name: Lipase; Complete Time: 11:03 09/16 09:56 Order name: HCG-Quantitative; Complete Time: 11:03 09/16 09:56 Order name: IV Saline Lock; Complete Time: 10:15 09/16 09:56 Order name: Labs collected and sent; Complete Time: 10:15 09/16 11:01 Order name: Pelvis Wo Cont; Complete Time: 12:52 EDMS Administered Medications: 10:15 Drug: NS 0.9% 1000 ml Route: IV; Rate: 1000 ml; Site: left antecubital; rb1 11:18 Follow up: IV Status: Completed infusion rb1 11:17 Drug: Demerol 25 mg Route: IVP; Site: left antecubital; rb1 11:58 Follow up: Response: No adverse reaction; Pain is decreased; Pt. was having an MRI done.rb1 11:17 Drug: Zofran 4 mg Route: IVP; Site: left antecubital; rb1 11:30 Follow up: Response: No adverse reaction; Nausea is decreased rb1 14:06 Drug: Demerol 25 mg Route: IVP; Site: left antecubital; rb1 14:25 Follow up: Response: No adverse reaction; Pain is decreased rb1 14:28 CANCELLED (provider discretion): morphine 4 mg IVP once ss Disposition: 16:41 Co-signature as Attending Physician, Yanick Hope MD I agree with the assessment and kdr plan of care. Disposition: 09/16/18 14:06 Transfer ordered to [facility]. Diagnosis are Pelvic and perineal pain, Intra-abdominal and pelvic swelling, mass and lump. - Reason for transfer: Higher level of care. - Accepting physician is Dr. Metcalf. - Condition is Stable. - Problem is new. - Symptoms have improved. Signatures: Dispatcher [employer] EDMS Yanick Hope MD MD [facility] Shahnaz Roblero RN RN Beltran Smiley PA PA [facility] Davina Simental, RN RN rb1 Corrections: (The following items were deleted from the chart) 13:50 12:39 The patient has been recently seen at the [place] [address] Emergency Department, yesterday, for similar complaints labs were performed, an ultrasound was performed, [facility] 14:28 14:20 morphine 4 mg IVP once ordered. jr8 ss 15:24 14:06 09/16/2018 14:06 Transfer ordered to [facility]. Diagnosis is Pelvic and ss perineal pain; Intra-abdominal and pelvic swelling, mass and lump. Reason for transfer: Higher level of care. Accepting physician is Dr. Metcalf. Condition is Stable. Problem is new. Symptoms have improved. jr8
--- NOTE | 2018-09-16 14:08 | ER ---
Nurse's Notes [facility] Name: Lenora Brewer Age: 28 yrs Sex: Female : 1990 Arrival Date: 09/16/2018 Time: 09:28 Bed 16 Private MD: Diagnosis: Pelvic and perineal pain;Intra-abdominal and pelvic swelling, mass and lump Presentation: 09/16 09:35 Presenting complaint: Patient states: Seen yesterday for lower abdominal pain and ss rectal pressure. Patient reports that it is much worse today. Patient reports she is 4.5 weeks . Transition of care: patient was not received from another setting of care. Onset of symptoms was September 15, 2018. Risk Assessment: Do you want to hurt yourself or someone else? Patient reports no desire to harm self or others. Initial Sepsis Screen: Does the patient meet any 2 criteria? No. Patient's initial sepsis screen is negative. Does the patient have a suspected source of infection? No. Patient's initial sepsis screen is negative. Care prior to arrival: None. 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 - Social history:: Smoking status: Patient/guardian denies using tobacco. - Ebola Screening: : Patient denies exposure to infectious person Patient denies travel to an Ebola-affected area in the 21 days before illness onset. Screenin:00 Abuse screen: Denies threats or abuse. Nutritional screening: No deficits noted. rb1 Tuberculosis screening: No symptoms or risk factors identified. Fall Risk None identified. Assessment: 10:00 General: Appears uncomfortable, Behavior is restless, Denies fever. Pain: Complains of rb1 pain in abdomen Pain currently is 10 out of 10 on a pain scale. Quality of pain is described as burning. Neuro: Level of Consciousness is awake, alert, obeys commands, Oriented to person, place, time, situation. Cardiovascular: Capillary refill < 3 seconds is brisk in bilateral fingers. Respiratory: Airway is patent Respiratory effort is even, unlabored, Respiratory pattern is regular, symmetrical. GI: Bowel sounds present X 4 quads. Abd is soft Abdomen is tender to palpation X 4 quads. Reports nausea. GI: Reports constipation. Derm: Skin is pink, warm \T\ dry. 11:00 Reassessment: Patient appears in no apparent distress at this time. No changes from rb1 previously documented assessment. Family at bedside. 12:00 Reassessment: Patient appears in no apparent distress at this time. Patient and/or rb1 family updated on plan of care and expected duration. Pain level reassessed. Patient is alert, oriented x 3, equal unlabored respirations, skin warm/dry/pink. Patient states feeling better. 13:00 Reassessment: Patient appears in no apparent distress at this time. No changes from rb1 previously documented assessment. Friend at bedside. 14:00 Reassessment: Patient appears in no apparent distress at this time. Patient and/or rb1 family updated on plan of care and expected duration. Pain level reassessed. Patient is alert, oriented x 3, equal unlabored respirations, skin warm/dry/pink. 14:30 Reassessment: Gave report to JOANNA Vance at [facility]. Information from [facility] the [facility] was given. All questions asked and answered. 15:00 Reassessment: Patient appears in no apparent distress at this time. Patient and/or rb1 family updated on plan of care and expected duration. Pain level reassessed. Patient is alert, oriented x 3, equal unlabored respirations, skin warm/dry/pink. Patient states symptoms have improved. Vital Signs: 09:37 Pulse 93; Resp 24; Temp 97.1(TE); Pulse Ox 100% on R/A; Weight 81.19 kg; Height 5 ft. 4 ss in. (162.56 cm); Pain 10/10; 09:39 BP 82 / 52; ss 12:30 BP 111 / 75; Pulse 81; Resp 19; Temp 98.0(O); Pulse Ox 100% on R/A; Pain 8/10; rb1 13:30 BP 122 / 85; Pulse 77; Resp 20; Temp 97.9(O); Pulse Ox 100% on R/A; rb1 14:00 BP 118 / 75; Pulse 77; Resp 17; Temp 98.1(O); Pulse Ox 100% on R/A; Pain 7/10; rb1 15:00 BP 119 / 71; Pulse 68; Resp 17; Temp 98.1(O); Pulse Ox 99% on R/A; Pain 6/10; rb1 09:37 Body Mass Index 30.72 (81.19 kg, 162.56 cm) ED Course: 09:28 Patient arrived in ED. as 09:36 Triage completed. ss 09:37 Arm band placed on right wrist. ss 09:54 Beltran Smiley PA is PHCP. jr8 09:54 Yanick Hope MD is Attending Physician. jr8 10:00 Patient has correct armband on for positive identification. Bed in low position. Call rb1 light in reach. Side rails up X 1. Pulse ox on. NIBP on. 10:01 Davina Simental, RN is Primary Nurse. rb1 11:54 Pelvis Wo Cont In Process Unspecified. EDMS 12:55 initiated a transfer with Alyce at the [facility] transfer center. eb 13:19 per Alyce at the [facility] transfer center they are at capacity and will have to decline eb the patient in transfer. 13:22 initiated a transfer with Freedom at the [facility] transfer center. eb 13:42 connected the OIL FIELD EQUIPMENT MECHANIC SUPERVISOR Surgeon tong carrier for [facility] with Beltran LOW for patient eb transfer consultation. 13:52 administrative approval given by Coco Estrada Supervisor / patient has been eb accepted to the [facility] by Dr. Scarlett Metcalf \[id number] / patient is going to the med surg department room assignment will be given once patient arrives/ report o be called to [phone]/ the [facility] transport will be in route to berry picker the patient. 15:10 No provider procedures requiring assistance completed. Patient transferred, IV remains rb1 in place. Administered Medications: 10:15 Drug: NS 0.9% 1000 ml Route: IV; Rate: 1000 ml; Site: left antecubital; rb1 11:18 Follow up: IV Status: Completed infusion rb1 11:17 Drug: Demerol 25 mg Route: IVP; Site: left antecubital; rb1 11:58 Follow up: Response: No adverse reaction; Pain is decreased; Pt. was having an MRI done.rb1 11:17 Drug: Zofran 4 mg Route: IVP; Site: left antecubital; rb1 11:30 Follow up: Response: No adverse reaction; Nausea is decreased rb1 14:06 Drug: Demerol 25 mg Route: IVP; Site: left antecubital; rb1 14:25 Follow up: Response: No adverse reaction; Pain is decreased rb1 14:28 CANCELLED (provider discretion): morphine 4 mg IVP once ss Intake: Outcome: 14:06 ER care complete, transfer ordered by . moon 15:10 Patient left the ED. rb1 15:10 Transferred by ground EMS [facility] Transfer form completed. rb1 15:10 Condition: stable 15:10 Instructed on the need for transfer. Signatures: Dispatcher [employer] EDMS Deyanira Arias Shelby, RN RN ss Beltran Smiley PA PA jr8 Davina Simental RN RN rb1 Pinky Barros Corrections: (The following items were deleted from the chart) 09:53 09:35 Acuity: SERG 2 ss ss 15:41 15:24 Patient left the ED. ss rb1
== END 2018-09-16 15:24 ==
LOC: ER 09:27
DX: R10.30 Lower abdominal pain, unspecified (principal); R19.00 Intra-abdominal and pelvic swelling, mass and lump, unspecified site
CPT/HCPCS: 36415; 72195; 80048; 80076; 83690; 84702; 85025; 96361; 96374; 96375; 99285; J2175; J2405; J7030

== ENCOUNTER 2018-11-10 17:10 | Emergency (ER) | payer OTHER ==
[2018-11-10] MEDS ORDERED: SMZ./TMP. 800/160 MG TABLET ONE (20:07)
[2018-11-10] MEDS ORDERED: MUPIROCIN 2% OINT 22GM TUBE TOP ONE (20:08)
--- NOTE | 2018-11-10 20:11 | ER ---
Nurse's Notes [facility] Name: Lenora Brewer Age: 28 yrs Sex: Female : 1990 Arrival Date: 11/10/2018 Time: 17:11 Bed 23 Private MD: Diagnosis: Cutaneous abscess of abdominal wall-small Presentation: 11/10 17:43 Presenting complaint: Patient states: i had surgery a month ago, i had to get blood and tw2 clots removed from abdomen, the surgical glue fell off but the stitches came out and this has not healed at all and it has pus and stuff draining for like 2 weeks. Transition of care: patient was not received from another setting of care. Onset of symptoms was November 10, 2018. Risk Assessment: Do you want to hurt yourself or someone else? Patient reports no desire to harm self or others. Initial Sepsis Screen: Does the patient meet any 2 criteria? No. Patient's initial sepsis screen is negative. Does the patient have a suspected source of infection? No. Patient's initial sepsis screen is negative. Care prior to arrival: None. 17:43 Method Of Arrival: Ambulatory tw2 17:43 Acuity: SERG 3 tw2 Triage Assessment: 17:48 General: Appears in no apparent distress. Behavior is calm, cooperative, appropriate tw2 for age. Pain: Complains of pain in right lower quadrant. 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 - Social history:: Smoking status: Patient/guardian denies using tobacco, the patient reports quitting approximately 2 years ago. - Ebola Screening: : Patient denies exposure to infectious person. - Family history:: not pertinent. Screenin:57 Abuse screen: Denies threats or abuse. Denies injuries from another. Nutritional ca1 screening: No deficits noted. Tuberculosis screening: No symptoms or risk factors identified. Fall Risk None identified. Assessment: 18:53 General: Appears in no apparent distress. comfortable, Behavior is calm, cooperative, ca1 appropriate for age. Pain: Complains of pain in right lower quadrant Pain currently is 6 out of 10 on a pain scale. Quality of pain is described as burning, Pain began 2-3 days ago. Neuro: Level of Consciousness is awake, alert, obeys commands, Oriented to person, place, time, situation. Cardiovascular: Heart tones S1 S2 present Capillary refill < 3 seconds Patient's skin is warm and dry. Respiratory: Airway is patent Respiratory effort is even, unlabored, Respiratory pattern is regular, symmetrical, Breath sounds are clear bilaterally. GI: Abdomen is round non-distended, Bowel sounds present X 4 quads. Abd is soft X 4 quads Abdomen is tender to palpation in right lower quadrant. : No deficits noted. No signs and/or symptoms were reported regarding the genitourinary system. EENT: No deficits noted. No signs and/or symptoms were reported regarding the EENT system. Derm: Skin is healthy with good turgor, Skin is pink, warm \T\ dry. Derm: Wound noted right lower quadrant Wound is a surgical incision from a laparoscopic surgery. Appears open, dry, clean, and not draining any fluid or pus at the moment. Not warm to touch but tender. Musculoskeletal: Circulation, motion, and sensation intact. Capillary refill < 3 seconds, Range of motion: intact in all extremities. 20:20 Reassessment: Patient appears in no apparent distress at this time. Patient is alert, ca1 oriented x 3, equal unlabored respirations, skin warm/dry/pink. Vital Signs: 17:45 BP 119 / 84; Pulse 72; Resp 17; Temp 97.6(TE); Pulse Ox 96% on R/A; Weight 74.84 kg tw2 (R); Pain 5/10; 18:53 BP 121 / 79; Pulse 67; Resp 17 S; Pulse Ox 100% on R/A; ca1 20:20 BP 112 / 78; Pulse 76; Resp 19 S; Pulse Ox 97% on R/A; ca1 ED Course: 17:11 Patient arrived in ED. as 17:45 Triage completed. tw2 17:45 Arm band placed on. tw2 18:48 Althea Mccain, RN is Primary Nurse. ca1 18:57 Patient has correct armband on for positive identification. Placed in gown. Bed in low ca1 position. Call light in reach. Side rails up X 1. Pulse ox on. NIBP on. Warm blanket given. 19:33 Lorne Martin MD is Attending Physician. kirsty 20:07 Barry oGnzalez MD is Referral Physician. [facility] 20:21 No provider procedures requiring assistance completed. Patient did not have IV access ca1 during this emergency room visit. Administered Medications: 20:18 Drug: Bactroban Ointment 2 % 1 application Route: Topical; Site: wound; ca1 20:20 Drug: Bactrim (160 mg-800 mg (DS) 1 tablet Route: PO; ca1 20:20 Follow up: Response: Medication administered at discharge. ca1 Outcome: 20:10 Discharge ordered by . ikrsty 20:21 Discharged to home ambulatory, with significant other. ca1 20:21 Condition: stable 20:21 Discharge instructions given to patient, Instructed on discharge instructions, follow up and referral plans. medication usage, wound care, Demonstrated understanding of instructions, follow-up care, medications, wound care, Prescriptions given X 2. 20:23 Patient left the ED. ca1 Signatures: Lorne Martin MD MD cha Martinez, Amelia as Wise, Tara, RN RN tw2 Althea Mccain RN RN ca1
--- NOTE | 2018-11-10 20:11 | EDPHYS ---
Physician Documentation [facility] Name: Lenora Brewer Age: 28 yrs Sex: Female : 1990 Arrival Date: 11/10/2018 Time: 17:11 Bed 23 Private MD: KIP Physician Lorne Martin HPI: 11/10 20:04 This 28 yrs old Female presents to ER via Ambulatory with complaints of kirsty Incision Problem. 20:04 The patient presents with cellulitis of the right lower quadrant, the patient presents kirsty with a swollen area of the right lower quadrant. Description: draining, erythematous. Onset: The symptoms/episode began/occurred 3 day(s) ago. Possible cause(s): surgical wound. Associated signs and symptoms: The patient has no apparent associated signs or symptoms. Modifying factors: the symptoms are alleviated by nothing, the symptoms are aggravated by nothing. Severity of symptoms: At their worst the symptoms were mild, in the emergency department the symptoms are unchanged. The patient has not experienced similar symptoms in the past. 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 - Social history:: Smoking status: Patient/guardian denies using tobacco, the patient reports quitting approximately 2 years ago. - Ebola Screening: : Patient denies exposure to infectious person. - Family history:: not pertinent. ROS: 20:04 Constitutional: Negative for fever, chills, and weight loss, Eyes: Negative for injury, kirsty pain, redness, and discharge, ENT: Negative for injury, pain, and discharge, Neck: Negative for injury, pain, and swelling, Cardiovascular: Negative for chest pain, palpitations, and edema, Respiratory: Negative for shortness of breath, cough, wheezing, and pleuritic chest pain, Abdomen/GI: Negative for abdominal pain, nausea, vomiting, diarrhea, and constipation, Back: Negative for injury and pain, : Negative for injury, bleeding, discharge, and swelling, MS/Extremity: Negative for injury and deformity, Neuro: Negative for headache, weakness, numbness, tingling, and seizure, Psych: Negative for depression, anxiety, suicide ideation, homicidal ideation, and hallucinations, Allergy/Immunology: Negative for hives, rash, and allergies, Endocrine: Negative for neck swelling, polydipsia, polyuria, polyphagia, and marked weight changes, Hematologic/Lymphatic: Negative for swollen nodes, abnormal bleeding, and unusual bruising. 20:04 Skin: Positive for erythema, swelling, of the right lower quadrant. Exam: 20:04 Constitutional: This is a well developed, well nourished patient who is awake, alert, kirsty and in no acute distress. Head/Face: Normocephalic, atraumatic. Eyes: Pupils equal round and reactive to light, extra-ocular motions intact. Lids and lashes normal. Conjunctiva and sclera are non-icteric and not injected. Cornea within normal limits. Periorbital areas with no swelling, redness, or edema. ENT: Nares patent. No nasal discharge, no septal abnormalities noted. Tympanic membranes are normal and external auditory canals are clear. Oropharynx with no redness, swelling, or masses, exudates, or evidence of obstruction, uvula midline. Mucous membranes moist. Neck: Trachea midline, no thyromegaly or masses palpated, and no cervical lymphadenopathy. Supple, full range of motion without nuchal rigidity, or vertebral point tenderness. No Meningismus. Chest/axilla: Normal chest wall appearance and motion. Nontender with no deformity. No lesions are appreciated. Cardiovascular: Regular rate and rhythm with a normal S1 and S2. No gallops, murmurs, or rubs. Normal PMI, no JVD. No pulse deficits. Respiratory: Lungs have equal breath sounds bilaterally, clear to auscultation and percussion. No rales, rhonchi or wheezes noted. No increased work of breathing, no retractions or nasal flaring. Abdomen/GI: Soft, non-tender, with normal bowel sounds. No distension or tympany. No guarding or rebound. No evidence of tenderness throughout. Back: No spinal tenderness. No costovertebral tenderness. Full range of motion. MS/ Extremity: Pulses equal, no cyanosis. Neurovascular intact. Full, normal range of motion. Neuro: Awake and alert, GCS 15, oriented to person, place, time, and situation. Cranial nerves II-XII grossly intact. Motor strength 5/5 in all extremities. Sensory grossly intact. Cerebellar exam normal. Normal gait. Psych: Awake, alert, with orientation to person, place and time. Behavior, mood, and affect are within normal limits. 20:04 Skin: cellulitis, that is minimal, induration, that is mild is noted. Vital Signs: 17:45 BP 119 / 84; Pulse 72; Resp 17; Temp 97.6(TE); Pulse Ox 96% on R/A; Weight 74.84 kg tw2 (R); Pain 5/10; 18:53 BP 121 / 79; Pulse 67; Resp 17 S; Pulse Ox 100% on R/A; ca1 20:20 BP 112 / 78; Pulse 76; Resp 19 S; Pulse Ox 97% on R/A; ca1 MDM: 19:33 Patient medically screened. [facility] 20:04 Data reviewed: vital signs, nurses notes, lab test result(s), urinalysis. [facility] 11/10 20:18 Order name: Urine Dipstick--Ancillary (enter results) [facility] 11/10 20:18 Order name: Urine --Ancillary (enter results) [facility] 11/10 20:02 Order name: Urine Dipstick-Ancillary (obtain specimen); Complete Time: 20:17 [facility] 11/10 20:02 Order name: Urine Test (obtain specimen); Complete Time: 20:17 [facility] Administered Medications: 20:18 Drug: Bactroban Ointment 2 % 1 application Route: Topical; Site: wound; ca1 20:20 Drug: Bactrim (160 mg-800 mg (DS) 1 tablet Route: PO; [facility] 20:20 Follow up: Response: Medication administered at discharge. ca1 Disposition: 11/10/18 20:10 Discharged to Home. Impression: Cutaneous abscess of abdominal wall - small. - Condition is Stable. - Discharge Instructions: Skin Abscess, Incision and Drainage, Skin Abscess, [id number]. - Prescriptions for Bactroban 2 % Topical Ointment - Apply to affected area 1 application by TOPICAL route every 12 hours; 30 gram. Bactrim DS 800- 160 mg Oral Tablet - take 1 tablet by ORAL route every 12 hours for 10 days; 20 tablet. - Medication Reconciliation Form, Thank You Letter, Antibiotic Education, Prescription Opioid Use form. - Follow up: Private Physician; When: 2 - 3 days; Reason: Recheck today's complaints, Continuance of care, Re-evaluation by your physician. Follow up: Barry Gonzalez MD; When: 2 - 3 days; Reason: Recheck today's complaints, Re-evaluation by your physician. - Problem is new. - Symptoms have improved. Signatures: Dispatcher [employer] EDLorne Doll MD MD cha Wise, Tara, RN RN tw2 Althea Mccain RN RN ca1 Corrections: (The following items were deleted from the chart) 20:23 20:10 11/10/2018 20:10 Discharged to Home. Impression: Cutaneous abscess of abdominal ca1 wall - small. Condition is Stable. Forms are Medication Reconciliation Form, Thank You Letter, Antibiotic Education, Prescription Opioid Use. Follow up: Private Physician; When: 2 - 3 days; Reason: Recheck today's complaints, Continuance of care, Re-evaluation by your physician. Follow up: Barry Gonzalez; When: 2 - 3 days; Reason: Recheck today's complaints, Re-evaluation by your physician. Problem is new. Symptoms have improved. kirsty
[2018-11-10 20:26] LABS: Urine Blood NEGATIVE (NEG); Urine Glucose NEGATIVE (NEG); Urine Protein NEGATIVE (NEG); Urine pH 6.5 (5.0-7.0)
[2018-11-10 21:16] VITALS: TEMP 97.6
[2018-11-10 21:19] VITALS: BP 112/78; O2SAT 97
== END 2018-11-10 20:23 | disposition home or self-care (01) ==
LOC: ER 17:10
DX: L02.211 Cutaneous abscess of abdominal wall (principal); D64.9 Anemia, unspecified
CPT/HCPCS: 81003; 81025; 99283

== ENCOUNTER 2020-12-17 07:58 | Emergency (ER) | payer OTHER ==
[2020-12-17 08:24] LABS: Urine Blood 3+ (Negative); Urine Glucose Negative (Negative); Urine Protein 2+ (Negative); Urine Specific Gravity >=1.030 (1.005-1.030)
[2020-12-17 09:02] LABS: Urine Bacteria >50 /HPF (<20); Urine RBC LOADED /HPF (NONE SEEN); Urine White Blood Cell Casts 0-5 /LPF (NONE SEEN)
--- NOTE | 2020-12-17 09:56 | EDPHYS ---
Physician Documentation [facility] Name: Lenora Reyes Age: 30 yrs Sex: Female : 1990 Arrival Date: 12/17/2020 Time: 08:00 Bed 11 Private MD: Lorne Parker HPI: 12/17 08:11 This 30 yrs old Female presents to ER via Ambulatory with complaints of Blood jmm In Urine. 08:11 The patient presents with urinary symptoms, dysuria, hematuria. Onset: The jmm symptoms/episode began/occurred 1 day(s) ago. Modifying factors: The symptoms are alleviated by nothing, the symptoms are aggravated by nothing. Associated signs and symptoms: Pertinent negatives: fever. The patient has not experienced similar symptoms in the past. 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 - Social history:: Smoking status: Patient reports the use of cigarette tobacco products, denies chronic smoking, but will smoke occasionally. ROS: 08:11 Constitutional: Negative for fever, chills, and weight loss, Cardiovascular: Negative jmm for chest pain, palpitations, and edema, Respiratory: Negative for shortness of breath, cough, wheezing, and pleuritic chest pain. 08:11 : Positive for urinary symptoms. 08:11 All other systems are negative. Exam: 08:11 Constitutional: This is a well developed, well nourished patient who is awake, alert, jmm and in no acute distress. Head/Face: atraumatic. Eyes: EOMI, no conjunctival erythema appreciated ENT: Moist Mucus Membranes Neck: Trachea midline, Supple Chest/axilla: Normal chest wall appearance and motion. Cardiovascular: Regular rate and rhythm. No edema appreciated Respiratory: Normal respirations, no respiratory distress appreciated Abdomen/GI: Non distended, soft Back: Normal ROM Skin: General appearance color normal MS/ Extremity: Moves all extremities, no obvious deformities appreciated, no edema noted to the lower extremities Neuro: Awake and alert, normal gait Psych: Behavior is normal, Mood is normal, Patient is cooperative and pleasant Vital Signs: 08:14 BP 112 / 83; Pulse 90; Resp 16; Pulse Ox 100% on R/A; Height 5 ft. 3 in. (160.02 cm); iw 08:27 Temp 98.2(O); jd3 MDM: 08:11 Patient medically screened. kirsty 09:55 Data reviewed: vital signs, nurses notes. Counseling: I had a detailed discussion with shae the patient and/or guardian regarding: the historical points, exam findings, and any diagnostic results supporting the discharge/admit diagnosis, lab results, the need for outpatient follow up, to return to the emergency department if symptoms worsen or persist or if there are any questions or concerns that arise at home. 17:49 ED course: Her nontoxic in appearance in the ED. Patient has no abdominal pain or [facility] peritoneal signs. Patient has no CVA tenderness. I do not suspect pyelonephritis. Patient given strict return precautions due to the degree of UTI.. 12/17 08:24 Order name: Urine Dipstick-Ancillary; Complete Time: 08:43 [facility] 12/17 08:25 Order name: Urine Microscopic Only 12/17 08:25 Order name: Urine Microscopic Only; Complete Time: 09:07 [facility] 12/17 08:25 Order name: Urine --Ancillary (enter results) 12/17 08:53 Order name: Urine Culture [facility] 12/17 08:19 Order name: Urine Dipstick-Ancillary (obtain specimen); Complete Time: 08:27 [facility] 12/17 08:19 Order name: Urine Test (obtain specimen); Complete Time: 08:27 [facility] Administered Medications: 09:14 Drug: Rocephin (cefTRIAXone) 1 grams Route: IM; Site: right ventrogluteal; jd3 09:50 Follow up: Response: No adverse reaction as6 Disposition Summary: 12/17/20 09:56 Discharge Ordered Location: Home shae Condition: Stable shae Diagnosis - Hemorrhagic cystitis shae Followup: shae - With: Private Physician - When: 2 - 3 days - Reason: Recheck today's complaints, Continuance of care, Re-evaluation by your physician Discharge Instructions: - Discharge Summary Sheet shae - Urinary Tract Infection, Adult devin Forms: - Medication Reconciliation Form shae - Thank You Letter jmm - Antibiotic Education jmm - Prescription Opioid Use jmm - Work release form as6 Prescriptions: - cefpodoxime 200 mg Oral Tablet - take 1 tablet by ORAL route every 12 hours for 10 days with food; 20 tablet; jmelisha Refills: 0, Product Selection Permitted Addendum: 12/18/2020 11:31 Co-signature as Attending Physician, Loren Martin MD I agree with the assessment and c tom plan of care. Signatures: Dispatcher [employer] EDLorne Doll MD MD cha Mickail, Joel, PA PA jmm Williams, Irene, RN RN Brett Anderson RN RN jd3 Rocky Lopez RN as6
--- NOTE | 2020-12-17 09:56 | ER ---
Nurse's Notes [facility] Name: Lenora Reyes Age: 30 yrs Sex: Female : 1990 Arrival Date: 12/17/2020 Time: 08:00 Bed 11 Private MD: Diagnosis: Hemorrhagic cystitis Presentation: 12/17 08:14 Chief complaint: Patient states: pain and burning with urination and had blood in her iw urine , started yesterday. Coronavirus screen: At this time, the client does not indicate any symptoms associated with coronavirus-19. Ebola Screen: Patient negative for fever greater than or equal to 101.5 degrees Fahrenheit, and additional compatible Ebola Virus Disease symptoms Patient denies exposure to infectious person. Patient denies travel to an Ebola-affected area in the 21 days before illness onset. No symptoms or risks identified at this time. Initial Sepsis Screen: Does the patient meet any 2 criteria? No. Patient's initial sepsis screen is negative. Does the patient have a suspected source of infection? No. Patient's initial sepsis screen is negative. Risk Assessment: Do you want to hurt yourself or someone else? Patient reports no desire to harm self or others. Onset of symptoms was December 16, 2020. 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 - Social history:: Smoking status: Patient reports the use of cigarette tobacco products, denies chronic smoking, but will smoke occasionally. Screenin:28 Abuse screen: Denies threats or abuse. Nutritional screening: No deficits noted. jd3 Tuberculosis screening: No symptoms or risk factors identified. Fall Risk None identified. Assessment: 08:14 General: Appears in no apparent distress. Behavior is calm, cooperative. Pain: jd3 Complains of pain in abdomen. Neuro: Level of Consciousness is awake, alert, obeys commands, Oriented to person, place, time, situation. Cardiovascular: Capillary refill < 3 seconds. Respiratory: Airway is patent Respiratory effort is even, unlabored, Respiratory pattern is regular, symmetrical. GI: Reports lower abdominal pain. : Reports burning with urination, pain lower quadrant(s) urgency, pt reports blood in urine. 09:23 Reassessment: Patient and/or family updated on plan of care and expected duration. Pain jd3 level reassessed. Patient is alert, oriented x 3, equal unlabored respirations, skin warm/dry/pink. injection given, educated pt on shot time, pending dc. 10:17 Reassessment: discharge teaching provided, medication education provided, rx given, pt as6 gait even and steady. Vital Signs: 08:14 BP 112 / 83; Pulse 90; Resp 16; Pulse Ox 100% on R/A; Height 5 ft. 3 in. (160.02 cm); iw 08:27 Temp 98.2(O); jd3 ED Course: 08:00 Patient arrived in ED. ds1 08:01 Rubin Figueroa PA is PHCP. [facility] 08:01 Lorne Martin MD is Attending Physician. [facility] 08:10 Brett Hodges, RN is Primary Nurse. jd3 08:15 Triage completed. iw 08:16 Arm band placed on. iw 08:27 Urine --Ancillary (enter results) Sent. jd3 08:27 Urine Microscopic Only Sent. jd3 08:27 Urine Microscopic Only Sent. jd3 08:29 Patient has correct armband on for positive identification. Bed in low position. Call jd3 light in reach. Side rails up X 1. Pulse ox on. NIBP on. 10:04 No provider procedures requiring assistance completed. Patient did not have IV access as6 during this emergency room visit. Administered Medications: 09:14 Drug: Rocephin (cefTRIAXone) 1 grams Route: IM; Site: right ventrogluteal; jd3 09:50 Follow up: Response: No adverse reaction as6 Outcome: 09:56 Discharge ordered by . shae 10:18 Discharged to home ambulatory. as6 10:18 Condition: stable 10:18 Discharge instructions given to patient, Instructed on discharge instructions, follow up and referral plans. medication usage, Demonstrated understanding of instructions, follow-up care, medications, Prescriptions given X 1. 10:19 Patient left the ED. as6 Signatures: Rubin Figueroa PA PA jmm Sanford, Elizabeth ds1 Katherine Torres, RN RN iw Brett Hodges, RN RN jd3 Rocky Lopez RN RN as6
[2020-12-17] MEDS ORDERED: CEFTRIAXONE 1000 MG/VIAL ONE (10:04)
[2020-12-17 10:29] VITALS: BP 112/83; O2SAT 100
[2020-12-17 10:30] VITALS: TEMP 98.2
[2020-12-17 13:02] LABS: Urine Specific Gravity/Preg >1.030 (1.005-1.030)
--- OUTSIDE RECORDS SUMMARY | 2020-12-29 04:30 | XMS REPORT | Continuity of Care Document ---
:1990 Author Organization [facility] t Address [address] [place] [address] Care Team Providers Name Role Phone G_Devi Attending Clinician Unavailable Doctor Unassigned, Name Attending Clinician Unavailable Gustavo Martinez DO Attending Clinician MARY Attending Clinician Unavailable Pcp, Does Not Have A Attending Clinician Mary NICHOLS Attending Clinician CRYSTAL Attending Clinician Unavailable Bhupendra DEUTSCH Attending Clinician BHUPENDRA Attending Clinician Unavailable Raymundo BOND Attending Clinician Unavailable Pob, Lab Main Attending Clinician Unavailable Martinez NICHOLS S Attending Clinician 1, Lab Attending Clinician Unavailable Doyle STATON G Attending Clinician Singer ALEJO Attending Clinician Brian GRANT, N Attending Clinician Trimester, Res-1st Attending Clinician Unavailable Alonzo NICHOLS R Attending Clinician Raymundo Nick Attending Clinician Marina Luke Attending Clinician Ahsan Admitting Clinician Unavailable Payers Payer Name Policy Type Policy Number Effective Date Expiration Date S ource [facility] [id number] 2015 [employer] 00:00:00 (MEDICAID HMO) [facility] [id number] 2015 [employer] - 00:00:00 EPSDT (MEDICAID HMO) Advance Directives Directive Decision Effective Termination Comments Source Date Date Healthcare Agents on N/A Univ ersity FileNameRelationshipHealthcare of [place] Agent Medical RelationshipCommunicationJustin Branch HeinSignificant OtherHealth Care [phone] (Mobile) Problems Condition Condition Condition Status Onset Resolution Last Treating Co mments Source Name Details Category Date Date Treatment Clinician Date Secondary Secondary Problem Active [place] female Female 1-21 da infertilit Infertilit 00:00: Me dical y y 00 Group History of History of Problem Active 2019- M atagor ectopic Ectopic 9-25 da 00:00: [facility] 00 Group Miscarriag Miscarriag Problem Active 2019-0 M atagor e e 7-26 da 00:00: Medical 00 Group Obesity Obesity Disease Active 2020-0 Univers (BMI (BMI 1-31 ity of 30-39.9) 30-39.9) 00:00: [place] 00 Medical Branch Left tubal Left tubal Disease Active 2020-0 U nivers 1-26 ity of without without 00:00: [place] intrauteri intrauteri 00 Me dical ne ne Branch History of History of Disease Active 2020-0 U nivers 1-26 ity of section section 00:00: [place] 00 Medical Branch Nonviable Nonviable Disease Active 2019-0 Uni vers 8-12 ity of 00:00: [place] 00 Medical Branch Rubella Rubella Disease Active 2019-0 Univers non-immune non-immune 7-30 it y of status, status, 00:00: [place] antepartum antepartum 00 Me dical Branch High risk High risk Disease Active 2019-0 Uni vers , , 7-29 it y of antepartum antepartum 00:[place] History of History of Disease Active 2019-0 U nivers 7-29 ity of delivery, delivery, 00:00: Arron garcía currently currently 00 [facility] rafael Branch Obesity Obesity Disease Active 2019-0 Univers affecting affecting 7-29 ity of 00:00: [place] garcía in first in first 00 Medica l trimester trimester Bran ch Right Right Disease Active 2018-0 Univers tubal tubal 3-25 [place] without 00 [place] intrauteri intrauteri Br anch ne ne Pelvic Pelvic Disease Active Univers pain pain 3-25 ity of 00:00: [address] Branch Hemoperito Hemoperito Disease Active U nivers neum due neum due 3-25 ity of to rupture to rupture 00:00: [place] of right of right 00 Medica l tubal tubal Branch ectopic ectopic Female Female Disease Active Univers pelvic pelvic 3-25 ity of peritoneal peritoneal 00:00: [place] adhesions adhesions 00 Medi rafael Branch Adhesions Adhesions Disease Active Uni vers involving involving 3-25 ity of right right 00:00: [place] fallopian fallopian 00 Medi rafael tube tube Branch History of History of Disease Active U nivers ectopic ectopic 3-25 [place] Well woman Well woman Disease Active U nivers exam with exam with 2-15 ity of routine routine 00:00: [place] gynecologi gynecologi 00 Me dical rafael exam rafael exam Branch BV BV Disease Active Univers (bacterial (bacterial 08 it y of vaginosis) vaginosis) 00:[place]: [place] [facility] Tobacco Tobacco Disease Active 2012-02 Univers use use 0-31 ity of disorder disorder 00:00: [address] Allergies, Adverse Reactions, Alerts Allergy Allergy Status Severity Reaction(s) Onset Inactive Treating Comm ents Source Name Type Date Date Clinician No Known DA Active U [facility] Allergie 09-16 [place] 00:00: [address] NO KNOWN Drug Active Univers ALLERGIE Class ity of S [facility] Social History Social Habit Start Date Stop Date Quantity Comments Source ASSERTION 2018-08-21 University of 00:00:00 [facility] Tobacco use and 2019-05-28 2019-05-28 Never used Universit y of exposure 00:00:00 00:00:00 [facility] Alcohol intake 2019-05-28 2019-05-28 Current drinker of Un iversity of 00:00:00 00:00:00 alcohol (finding) [facility] edical [place] History of 2017-09-13 Cigarette Smoker Universi ty of tobacco use 00:00:00 [facility] Tobacco Comment 2016-04-02 2016-04-02 smokes occasionally University 00:00:00 00:00:00 when she drinks [facility] Alcohol Comment 2016-04-02 2016-04-02 socially Universit y of 00:00:00 00:00:00 [facility] Sex [birth year] At [birth year] Universit y of 00:00:00 00:00:00 [facility] Smoking Status Start Date Stop Date Source Never Smoker [facility] Former smoker 2019-05-28 00:00:00 2019-05-28 00:00:00 [facility] [place] [facility] Current some day 2017-05-28 00:00:00 [facility] Medications Ordered Filled Start Stop Current Ordering Indication Dosage Frequency Signature Comments Components Source Medication Medication Date Date Medication? Clinician (SIG) Name Name Nitrofurant 2020-0 Yes [id number] 100mg Take 1 Univers oin&Nit. 4-11 capsule by ity o f [place] 00[place] (MACROBID) 00 (two) Medical 100 mg times Branch capsule daily. Nitrofurant 2020-0 Yes [id number] 100mg Take 1 Univers oin&Nit. 4-11 capsule by ity o f [place] 00:[place] (MACROBID) 00 (two) Medical 100 mg times Branch capsule daily. Nitrofurant 2020-0 Yes [id number] 100mg Take 1 Univers oin&Nit. 4-11 capsule by ity o f [place] 00:[place] (MACROBID) 00 (two) Medical 100 mg times Branch capsule daily. Nitrofurant 2020-0 Yes [id number] 100mg Take 1 Univers oin&Nit. 4-11 capsule by ity o f [place] 00:[place] (MACROBID) 00 (two) Medical 100 mg times Branch capsule daily. norethindro 2020-0 Yes [id number] 1{tbl} Take 1 Univers ne-e.estrad 2-06 tablet by ity of iol-iron 00:00: mouth [place] (LOESTRIN 00 daily. Medical FE 1.5/30) Branch 1.5 mg-30 mcg (21)/75 mg (7) per tablet norethindro 2020-0 Yes [id number] 1{tbl} Take 1 Univers ne-e.estrad 2-06 tablet by ity of iol-iron 00:00: mouth [place] (LOESTRIN 00 daily. Medical FE ) Branch 1.5 mg-30 mcg (21)/75 mg (7) per tablet norethindro 2020-0 Yes [id number] 1{tbl} Take 1 Univers ne-e.estrad 2-06 tablet by ity of iol-iron 00:00: mouth [place] (LOESTRIN 00 daily. Medical FE ) Branch 1.5 mg-30 mcg (21)/75 mg (7) per tablet norethindro 2020-0 Yes [id number] 1{tbl} Take 1 Univers ne-e.estrad 2-06 tablet by ity of iol-iron 00:00: mouth [place] (LOESTRIN 00 daily. Medical FE ) Branch 1.5 mg-30 mcg (21)/75 mg (7) per tablet norethindro 2020-0 Yes [id number] 1{tbl} Take 1 Univers ne-e.estrad 2-06 tablet by ity of iol-iron 00:00: mouth [place] (LOESTRIN 00 daily. Medical FE ) Branch 1.5 mg-30 mcg (21)/75 mg (7) per tablet norethindro 2020-0 Yes [id number] 1{tbl} Take 1 Univers ne-e.estrad 2-06 tablet by ity of iol-iron 00:00: mouth [place] (LOESTRIN 00 daily. Medical FE ) Branch 1.5 mg-30 mcg (21)/75 mg (7) per tablet norethindro 2020-0 Yes [id number] 1{tbl} Take 1 Univers ne-e.estrad 2-06 tablet by ity of iol-iron 00:00: mouth [place] (LOESTRIN 00 daily. Medical FE ) Branch 1.5 mg-30 mcg (21)/75 mg (7) per tablet norethindro 2020-0 Yes [id number] 1{tbl} Take 1 Univers ne-e.estrad 2-06 tablet by ity of iol-iron 00:00: mouth [place] (LOESTRIN 00 daily. Medical FE ) Branch 1.5 mg-30 mcg (21)/75 mg (7) per tablet norethindro 2020-0 Yes [id number] 1{tbl} Take 1 Univers ne-e.estrad 2-06 tablet by ity of iol-iron 00:00: mouth [place] (LOESTRIN 00 daily. Medical FE ) Branch 1.5 mg-30 mcg (21)/75 mg (7) per tablet norethindro 2020-0 Yes [id number] 1{tbl} Take 1 Univers ne-e.estrad 2-06 tablet by ity of iol-iron 00:00: mouth [place] (LOESTRIN 00 daily. Medical FE ) Branch 1.5 mg-30 mcg (21)/75 mg (7) per tablet norethindro 2020-0 Yes [id number] 1{tbl} Take 1 Univers ne-e.estrad 2-06 tablet by ity of iol-iron 00:00: mouth [place] (LOESTRIN 00 daily. Medical FE ) Branch 1.5 mg-30 mcg (21)/75 mg (7) per tablet norethindro 2020-0 Yes [id number] 1{tbl} Take 1 Univers ne-e.estrad 2-06 tablet by ity of iol-iron 00:00: mouth [place] (LOESTRIN 00 daily. Medical FE ) Branch 1.5 mg-30 mcg (21)/75 mg (7) per tablet norethindro 2020-0 Yes [id number] 1{tbl} Take 1 Univers ne-e.estrad 2-06 tablet by ity of iol-iron 00:00: mouth [place] (LOESTRIN 00 daily. Medical FE ) Branch 1.5 mg-30 mcg (21)/75 mg (7) per tablet norethindro 2020-0 Yes [id number] 1{tbl} Take 1 Univers ne-e.estrad 2-06 tablet by ity of iol-iron 00:00: mouth [place] (LOESTRIN 00 daily. Medical FE ) Branch 1.5 mg-30 mcg (21)/75 mg (7) per tablet norethindro 2020-0 Yes [id number] 1{tbl} Take 1 Univers ne-e.estrad 2-06 tablet by ity of iol-iron 00:00: mouth [place] (LOESTRIN 00 daily. Medical FE ) Branch 1.5 mg-30 mcg (21)/75 mg (7) per tablet norethindro 2020-0 Yes [id number] 1{tbl} Take 1 Univers ne-e.estrad 2-06 tablet by ity of iol-iron 00:00: mouth [place] (LOESTRIN 00 daily. Medical FE ) Branch 1.5 mg-30 mcg (21)/75 mg (7) per tablet norethindro 2020-0 Yes [id number] 1{tbl} Take 1 Univers ne-e.estrad 2-06 tablet by ity of iol-iron 00:00: mouth [place] (LOESTRIN 00 daily. Medical FE ) Branch 1.5 mg-30 mcg (21)/75 mg (7) per tablet norethindro 2020-0 Yes [id number] 1{tbl} Take 1 Univers ne-e.estrad 2-06 tablet by ity of iol-iron 00:00: mouth [place] (LOESTRIN 00 daily. Medical FE ) Branch 1.5 mg-30 mcg (21)/75 mg (7) per tablet methotrexat 2020- No 50mg/m2 94.5 mg Univers e (PF) 03-13 (50 mg/m2 ity of injection 23:30: 00:41 ?1.89 m2), [place] 94.5 mg 00 :00 [facility], ONCE, Branch 1 dose, 03/13/19 at 1730, Routine 2020- No Take by [facility] vits4/iron- 03-13 mouth. ity o f FA/dss/dha 21:54: 00:00 [place] (CITRANATAL 22 :00 Medical DHA ORAL) Branch 2020- No Take by [facility] vits4/iron- 03-13 mouth. ity o f FA/dss/dha 21:54: 00:00 [place] (CITRANATAL 22 :00 Medical DHA ORAL) Branch traMADol 50 2020-0 Yes [id number] 50mg Take 1 Univers mg tablet 1-26 tablet by ity o f 00:00: mouth [place] 00 every 6 Medical (six) Branch hours as needed (pain). acetaminoph 2020-0 Yes [id number] 650mg Take 2 Univers en 1-26 tablets by ity of (TYLENOL) 00:00: mouth [place] 325 mg 00 every 6 Medical tablet (six) Branch hours as needed (pain). ondansetron 2020-0 Yes [id number] 4mg Take 1 Univers (ZOFRAN) 4 1-26 tablet by ity of mg tablet 00:00: mouth [place] 00 every 8 Medical (eight) Branch hours as needed for Nausea and Vomiting (N/V). traMADol 50 2020-0 Yes [id number] 50mg Take 1 Univers mg tablet 1-26 tablet by ity o f 00:00: mouth [place] 00 every 6 Medical (six) Branch hours as needed (pain). acetaminoph 2020-0 Yes [id number] 650mg Take 2 Univers en 1-26 tablets by ity of (TYLENOL) 00:00: mouth [place] 325 mg 00 every 6 Medical tablet (six) Branch hours as needed (pain). ondansetron 2020-0 Yes [id number] 4mg Take 1 Univers (ZOFRAN) 4 1-26 tablet by ity of mg tablet 00:00: mouth [place] 00 every 8 Medical (eight) Branch hours as needed for Nausea and Vomiting (N/V). traMADol 50 2020-0 Yes [id number] 50mg Take 1 Univers mg tablet 1-26 tablet by ity o f 00:00: mouth [place] 00 every 6 Medical (six) Branch hours as needed (pain). acetaminoph 2020-0 Yes [id number] 650mg Take 2 Univers en 1-26 tablets by ity of (TYLENOL) 00:00: mouth [place] 325 mg 00 every 6 Medical tablet (six) Branch hours as needed (pain). ondansetron 2020-0 Yes [id number] 4mg Take 1 Univers (ZOFRAN) 4 1-26 tablet by ity of mg tablet 00:00: mouth [place] 00 every 8 Medical (eight) Branch hours as needed for Nausea and Vomiting (N/V). traMADol 50 2020-0 Yes [id number] 50mg Take 1 Univers mg tablet 1-26 tablet by ity o f 00:00: mouth [place] 00 every 6 Medical (six) Branch hours as needed (pain). acetaminoph 2020-0 Yes [id number] 650mg Take 2 Univers en 1-26 tablets by ity of (TYLENOL) 00:00: mouth [place] 325 mg 00 every 6 Medical tablet (six) Branch hours as needed (pain). ondansetron 2020-0 Yes [id number] 4mg Take 1 Univers (ZOFRAN) 4 1-26 tablet by ity of mg tablet 00:00: mouth [place] 00 every 8 Medical (eight) Branch hours as needed for Nausea and Vomiting (N/V). traMADol 50 2020-0 Yes [id number] 50mg Take 1 Univers mg tablet 1-26 tablet by ity o f 00:00: mouth [place] 00 every 6 Medical (six) Branch hours as needed (pain). acetaminoph 2020-0 Yes [id number] 650mg Take 2 Univers en 1-26 tablets by ity of (TYLENOL) 00:00: mouth [place] 325 mg 00 every 6 Medical tablet (six) Branch hours as needed (pain). ondansetron 2020-0 Yes [id number] 4mg Take 1 Univers (ZOFRAN) 4 1-26 tablet by ity of mg tablet 00:00: mouth [place] 00 every 8 Medical (eight) Branch hours as needed for Nausea and Vomiting (N/V). traMADol 50 2020-0 Yes [id number] 50mg Take 1 Univers mg tablet 1-26 tablet by ity o f 00:00: mouth [place] 00 every 6 Medical (six) Branch hours as needed (pain). acetaminoph 2020-0 Yes [id number] 650mg Take 2 Univers en 1-26 tablets by ity of (TYLENOL) 00:00: mouth [place] 325 mg 00 every 6 Medical tablet (six) Branch hours as needed (pain). ondansetron 2020-0 Yes [id number] 4mg Take 1 Univers (ZOFRAN) 4 1-26 tablet by ity of mg tablet 00:00: mouth [place] 00 every 8 Medical (eight) Branch hours as needed for Nausea and Vomiting (N/V). traMADol 50 2020-0 Yes [id number] 50mg Take 1 Univers mg tablet 1-26 tablet by ity o f 00:00: mouth [place] 00 every 6 Medical (six) Branch hours as needed (pain). acetaminoph 2020-0 Yes [id number] 650mg Take 2 Univers en 1-26 tablets by ity of (TYLENOL) 00:00: mouth [place] 325 mg 00 every 6 Medical tablet (six) Branch hours as needed (pain). ondansetron 2020-0 Yes [id number] 4mg Take 1 Univers (ZOFRAN) 4 1-26 tablet by ity of mg tablet 00:00: mouth [place] 00 every 8 Medical (eight) Branch hours as needed for Nausea and Vomiting (N/V). traMADol 50 2020-0 Yes [id number] 50mg Take 1 Univers mg tablet 1-26 tablet by ity o f 00:00: mouth [place] 00 every 6 Medical (six) Branch hours as needed (pain). acetaminoph 2020-0 Yes [id number] 650mg Take 2 Univers en 1-26 tablets by ity of (TYLENOL) 00:00: mouth [place] 325 mg 00 every 6 Medical tablet (six) Branch hours as needed (pain). ondansetron 2020-0 Yes [id number] 4mg Take 1 Univers (ZOFRAN) 4 1-26 tablet by ity of mg tablet 00:00: mouth [place] 00 every 8 Medical (eight) Branch hours as needed for Nausea and Vomiting (N/V). traMADol 50 2020-0 Yes [id number] 50mg Take 1 Univers mg tablet 1-26 tablet by ity o f 00:00: mouth [place] 00 every 6 Medical (six) Branch hours as needed (pain). acetaminoph 2020-0 Yes [id number] 650mg Take 2 Univers en 1-26 tablets by ity of (TYLENOL) 00:00: mouth [place] 325 mg 00 every 6 Medical tablet (six) Branch hours as needed (pain). ondansetron 2020-0 Yes [id number] 4mg Take 1 Univers (ZOFRAN) 4 1-26 tablet by ity of mg tablet 00:00: mouth [place] 00 every 8 Medical (eight) Branch hours as needed for Nausea and Vomiting (N/V). traMADol 50 2020-0 Yes [id number] 50mg Take 1 Univers mg tablet 1-26 tablet by ity o f 00:00: mouth [place] 00 every 6 Medical (six) Branch hours as needed (pain). acetaminoph 2020-0 Yes [id number] 650mg Take 2 Univers en 1-26 tablets by ity of (TYLENOL) 00:00: mouth [place] 325 mg 00 every 6 Medical tablet (six) Branch hours as needed (pain). ondansetron 2020-0 Yes [id number] 4mg Take 1 Univers (ZOFRAN) 4 1-26 tablet by ity of mg tablet 00:00: mouth [place] 00 every 8 Medical (eight) Branch hours as needed for Nausea and Vomiting (N/V). traMADol 50 2020-0 Yes [id number] 50mg Take 1 Univers mg tablet 1-26 tablet by ity o f 00:00: mouth [place] 00 every 6 Medical (six) Branch hours as needed (pain). acetaminoph 2020-0 Yes [id number] 650mg Take 2 Univers en 1-26 tablets by ity of (TYLENOL) 00:00: mouth [place] 325 mg 00 every 6 Medical tablet (six) Branch hours as needed (pain). ondansetron 2020-0 Yes [id number] 4mg Take 1 Univers (ZOFRAN) 4 1-26 tablet by ity of mg tablet 00:00: mouth [place] 00 every 8 Medical (eight) Branch hours as needed for Nausea and Vomiting (N/V). traMADol 50 2020-0 Yes [id number] 50mg Take 1 Univers mg tablet 1-26 tablet by ity o f 00:00: mouth [place] 00 every 6 Medical (six) Branch hours as needed (pain). acetaminoph 2020-0 Yes [id number] 650mg Take 2 Univers en 1-26 tablets by ity of (TYLENOL) 00:00: mouth [place] 325 mg 00 every 6 Medical tablet (six) Branch hours as needed (pain). ondansetron 2020-0 Yes [id number] 4mg Take 1 Univers (ZOFRAN) 4 1-26 tablet by ity of mg tablet 00:00: mouth [place] 00 every 8 Medical (eight) Branch hours as needed for Nausea and Vomiting (N/V). traMADol 50 2020-0 Yes [id number] 50mg Take 1 Univers mg tablet 1-26 tablet by ity o f 00:00: mouth [place] 00 every 6 Medical (six) Branch hours as needed (pain). acetaminoph 2020-0 Yes [id number] 650mg Take 2 Univers en 1-26 tablets by ity of (TYLENOL) 00:00: mouth [place] 325 mg 00 every 6 Medical tablet (six) Branch hours as needed (pain). ondansetron 2020-0 Yes [id number] 4mg Take 1 Univers (ZOFRAN) 4 1-26 tablet by ity of mg tablet 00:00: mouth [place] 00 every 8 Medical (eight) Branch hours as needed for Nausea and Vomiting (N/V). traMADol 50 2020-0 Yes [id number] 50mg Take 1 Univers mg tablet 1-26 tablet by ity o f 00:00: mouth [place] 00 every 6 Medical (six) Branch hours as needed (pain). acetaminoph 2020-0 Yes [id number] 650mg Take 2 Univers en 1-26 tablets by ity of (TYLENOL) 00:00: mouth [place] 325 mg 00 every 6 Medical tablet (six) Branch hours as needed (pain). ondansetron 2020-0 Yes [id number] 4mg Take 1 Univers (ZOFRAN) 4 1-26 tablet by ity of mg tablet 00:00: mouth [place] 00 every 8 Medical (eight) Branch hours as needed for Nausea and Vomiting (N/V). traMADol 50 2020-0 Yes [id number] 50mg Take 1 Univers mg tablet 1-26 tablet by ity o f 00:00: mouth [place] 00 every 6 Medical (six) Branch hours as needed (pain). acetaminoph 2020-0 Yes [id number] 650mg Take 2 Univers en 1-26 tablets by ity of (TYLENOL) 00:00: mouth [place] 325 mg 00 every 6 Medical tablet (six) Branch hours as needed (pain). ondansetron 2020-0 Yes [id number] 4mg Take 1 Univers (ZOFRAN) 4 1-26 tablet by ity of mg tablet 00:00: mouth [place] 00 every 8 Medical (eight) Branch hours as needed for Nausea and Vomiting (N/V). traMADol 50 2020-0 Yes [id number] 50mg Take 1 Univers mg tablet 1-26 tablet by ity o f 00:00: mouth [place] 00 every 6 Medical (six) Branch hours as needed (pain). acetaminoph 2020-0 Yes [id number] 650mg Take 2 Univers en 1-26 tablets by ity of (TYLENOL) 00:00: mouth [place] 325 mg 00 every 6 Medical tablet (six) Branch hours as needed (pain). ondansetron 2020-0 Yes [id number] 4mg Take 1 Univers (ZOFRAN) 4 1-26 tablet by ity of mg tablet 00:00: mouth [place] 00 every 8 Medical (eight) Branch hours as needed for Nausea and Vomiting (N/V). traMADol 50 2020-0 Yes [id number] 50mg Take 1 Univers mg tablet 1-26 tablet by ity o f 00:00: mouth [place] 00 every 6 Medical (six) Branch hours as needed (pain). acetaminoph 2020-0 Yes [id number] 650mg Take 2 Univers en 1-26 tablets by ity of (TYLENOL) 00:00: mouth [place] 325 mg 00 every 6 Medical tablet (six) Branch hours as needed (pain). ondansetron 2020-0 Yes [id number] 4mg Take 1 Univers (ZOFRAN) 4 1-26 tablet by ity of mg tablet 00:00: mouth [place] 00 every 8 Medical (eight) Branch hours as needed for Nausea and Vomiting (N/V). traMADol 50 2020-0 Yes [id number] 50mg Take 1 Univers mg tablet 1-26 tablet by ity o f 00:00: mouth [place] 00 every 6 Medical (six) Branch hours as needed (pain). acetaminoph 2020-0 Yes [id number] 650mg Take 2 Univers en 1-26 tablets by ity of (TYLENOL) 00:00: mouth [place] 325 mg 00 every 6 Medical tablet (six) Branch hours as needed (pain). ondansetron 2020-0 Yes [id number] 4mg Take 1 Univers (ZOFRAN) 4 1-26 tablet by ity of mg tablet 00:00: mouth [place] 00 every 8 Medical (eight) Branch hours as needed for Nausea and Vomiting (N/V). traMADol 50 2020-0 Yes [id number] 50mg Take 1 Univers mg tablet 1-26 tablet by ity o f 00:00: mouth [place] 00 every 6 Medical (six) Branch hours as needed (pain). acetaminoph 2020-0 Yes [id number] 650mg Take 2 Univers en 1-26 tablets by ity of (TYLENOL) 00:00: mouth [place] 325 mg 00 every 6 Medical tablet (six) Branch hours as needed (pain). ondansetron 2020-0 Yes [id number] 4mg Take 1 Univers (ZOFRAN) 4 1-26 tablet by ity of mg tablet 00:00: mouth [place] 00 every 8 Medical (eight) Branch hours as needed for Nausea and Vomiting (N/V). traMADol 50 2020-0 Yes [id number] 50mg Take 1 Univers mg tablet 1-26 tablet by ity o f 00:00: mouth [place] 00 every 6 Medical (six) Branch hours as needed (pain). acetaminoph 2020-0 Yes [id number] 650mg Take 2 Univers en 1-26 tablets by ity of (TYLENOL) 00:00: mouth [place] 325 mg 00 every 6 Medical tablet (six) Branch hours as needed (pain). ondansetron 2020-0 Yes [id number] 4mg Take 1 Univers (ZOFRAN) 4 1-26 tablet by ity of mg tablet 00:00: mouth [place] 00 every 8 Medical (eight) Branch hours as needed for Nausea and Vomiting (N/V). traMADol 50 2020-0 Yes [id number] 50mg Take 1 Univers mg tablet 1-26 tablet by ity o f 00:00: mouth [place] 00 every 6 Medical (six) Branch hours as needed (pain). acetaminoph 2020-0 Yes [id number] 650mg Take 2 Univers en 1-26 tablets by ity of (TYLENOL) 00:00: mouth [place] 325 mg 00 every 6 Medical tablet (six) Branch hours as needed (pain). ondansetron 2020-0 Yes [id number] 4mg Take 1 Univers (ZOFRAN) 4 1-26 tablet by ity of mg tablet 00:00: mouth [place] 00 every 8 Medical (eight) Branch hours as needed for Nausea and Vomiting (N/V). traMADol 50 2020-0 Yes [id number] 50mg Take 1 Univers mg tablet 1-26 tablet by ity o f 00:00: mouth [place] 00 every 6 Medical (six) Branch hours as needed (pain). acetaminoph 2020-0 Yes [id number] 650mg Take 2 Univers en 1-26 tablets by ity of (TYLENOL) 00:00: mouth [place] 325 mg 00 every 6 Medical tablet (six) Branch hours as needed (pain). ondansetron 2020-0 Yes [id number] 4mg Take 1 Univers (ZOFRAN) 4 1-26 tablet by ity of mg tablet 00:00: mouth [place] 00 every 8 Medical (eight) Branch hours as needed for Nausea and Vomiting (N/V). traMADol 50 2020-0 Yes [id number] 50mg Take 1 Univers mg tablet 1-26 tablet by ity o f 00:00: mouth [place] 00 every 6 Medical (six) Branch hours as needed (pain). acetaminoph 2020-0 Yes [id number] 650mg Take 2 Univers en 1-26 tablets by ity of (TYLENOL) 00:00: mouth [place] 325 mg 00 every 6 Medical tablet (six) Branch hours as needed (pain). ondansetron 2020-0 Yes [id number] 4mg Take 1 Univers (ZOFRAN) 4 1-26 tablet by ity of mg tablet 00:00: mouth [place] 00 every 8 Medical (eight) Branch hours as needed for Nausea and Vomiting (N/V). traMADol 50 2020-0 Yes [id number] 50mg Take 1 Univers mg tablet 1-26 tablet by ity o f 00:00: mouth [place] 00 every 6 Medical (six) Branch hours as needed (pain). acetaminoph 2020-0 Yes [id number] 650mg Take 2 Univers en 1-26 tablets by ity of (TYLENOL) 00:00: mouth [place] 325 mg 00 every 6 Medical tablet (six) Branch hours as needed (pain). ondansetron 2020-0 Yes [id number] 4mg Take 1 Univers (ZOFRAN) 4 1-26 tablet by ity of mg tablet 00:00: mouth [place] 00 every 8 Medical (eight) Branch hours as needed for Nausea and Vomiting (N/V). traMADol 50 2020-0 Yes [id number] 50mg Take 1 Univers mg tablet 1-26 tablet by ity o f 00:00: mouth [place] 00 every 6 Medical (six) Branch hours as needed (pain). acetaminoph 2020-0 Yes [id number] 650mg Take 2 Univers en 1-26 tablets by ity of (TYLENOL) 00:00: mouth [place] 325 mg 00 every 6 Medical tablet (six) Branch hours as needed (pain). ondansetron 2020-0 Yes [id number] 4mg Take 1 Univers (ZOFRAN) 4 1-26 tablet by ity of mg tablet 00:00: mouth [place] 00 every 8 Medical (eight) Branch hours as needed for Nausea and Vomiting (N/V). 2019-0 Yes Take by Unive rs vits4/iron- 7-29 mouth. ity of FA/dss/dha 20:29: [place] (CITRANATAL 49 Medical DHA ORAL) Branch 2019-0 Yes Take by Unive rs vits4/iron- 7-29 mouth. ity of FA/dss/dha 20:29: [place] (CITRANATAL 49 Medical DHA ORAL) Branch 2019-0 Yes Take by Unive rs vits4/iron- 7-29 mouth. ity of FA/dss/dha 20:29: [place] (CITRANATAL 49 Medical DHA ORAL) Branch 2019-0 Yes Take by Unive rs vits4/iron- 7-29 mouth. ity of FA/dss/dha 20:29: [place] (CITRANATAL 49 Medical DHA ORAL) Branch 2019-0 Yes Take by Unive rs vits4/iron- 7-29 mouth. ity of FA/dss/dha 20:29: [place] (CITRANATAL 49 Medical DHA ORAL) Branch 2019-0 Yes Take by Unive rs vits4/iron- 7-29 mouth. ity of FA/dss/dha 20:29: [place] (CITRANATAL 49 Medical DHA ORAL) Branch 2019-0 Yes Take by Unive rs vits4/iron- 7-29 mouth. ity of FA/dss/dha 20:29: [place] (CITRANATAL 49 Medical DHA ORAL) Branch 2019-0 Yes Take by Unive rs vits4/iron- 7-29 mouth. ity of FA/dss/dha 20:29: [place] (CITRANATAL 49 Medical DHA ORAL) Branch 2019-0 Yes Take by Unive rs vits4/iron- 7-29 mouth. ity of FA/dss/dha 20:29: [place] (CITRANATAL 49 Medical DHA ORAL) Branch 2019-0 Yes Take by Unive rs vits4/iron- 7-29 mouth. ity of FA/dss/dha 20:29: [place] (CITRANATAL 49 Medical DHA ORAL) Branch 2019-0 Yes Take by Unive rs vits4/iron- 7-29 mouth. ity of FA/dss/dha 20:29: [place] (CITRANATAL 49 Medical DHA ORAL) Branch 2019-0 Yes Take by Unive rs vits4/iron- 7-29 mouth. ity of FA/dss/dha 20:29: [place] (CITRANATAL 49 Medical DHA ORAL) Branch 2019-0 Yes Take by Unive rs vits4/iron- 7-29 mouth. ity of FA/dss/dha 20:29: [place] (CITRANATAL 49 Medical DHA ORAL) Branch 2019-0 Yes Take by Unive rs vits4/iron- 7-29 mouth. ity of FA/dss/dha 20:29: [place] (CITRANATAL 49 Medical DHA ORAL) Branch 2019-0 Yes Take by Unive rs vits4/iron- 7-29 mouth. ity of FA/dss/dha 20:29: [place] (CITRANATAL 49 Medical DHA ORAL) Branch FLUoxetine Yes [id number] 20mg Take 1 U nivers (PROZAC) 20 6-08 capsule by it y of mg capsule 00:00: mouth [place] 00 daily. Medical Branch FLUoxetine 0 Yes [id number] 20mg Take 1 U nivers (PROZAC) 20 6-08 capsule by it y of mg capsule 00:00: mouth [place] 00 daily. Medical Branch FLUoxetine 0 2019- No [id number] 20mg Take 1 Univers (PROZAC) 20 6-08 07-29 capsule by i ty of mg capsule 00:00: 00:00 mouth [place] 00 :00 daily. Medical Branch traMADOL 50 0 Yes 50mg Take 1 Univ ers mg tablet 3-25 tablet by ity o f 00:00: mouth [place] 00 every 4 Medical (four) Branch hours as needed for Pain (scale 1-3). ibuprofen [id number] Yes 800mg Take 1 Unive rs 800 mg 3-25 tablet by ity of tablet 00:00: mouth [place] 00 every 6 Medical (six) Branch hours as needed for Pain (scale 1-3) or Pain (scale 4-6). traMADOL 50 0 Yes 50mg Take 1 Univ ers mg tablet 3-25 tablet by ity o f 00:00: mouth [place] 00 every 4 Medical (four) Branch hours as needed for Pain (scale 1-3). ibuprofen 0 Yes 800mg Take 1 Unive rs 800 mg 3-25 tablet by ity of tablet 00:00: mouth [place] 00 every 6 Medical (six) Branch hours as needed for Pain (scale 1-3) or Pain (scale 4-6). traMADOL 50 2018- No 50mg Take 1 Uni vers mg tablet 05-10 tablet by ity of 00:00: 00:00 mouth [place] 00 :00 every 4 Medical (four) Branch hours as needed for Pain (scale 1-3). ibuprofen No 800mg Take 1 Univ ers 800 mg -09 09- tablet by ity of tablet 00:00: 00:00 mouth [place] 00 :00 every 6 Medical (six) Branch hours as needed for Pain (scale 1-3) or Pain (scale 4-6). No known No Univers medications ity of [facility] Immunizations Ordered Filled Immunization Date Status Comments [facility] Immunization Name Name Td 2010-02-16 Completed University of 00:00:00 [facility] Td 2010-02-16 Completed University of 00:00:00 [facility] Td 2010-02-16 Completed University of 00:00:00 [facility] Td 2010-02-16 Completed University of 00:00:00 [facility] Td 2010-02-16 Completed University of 00:00:00 [facility] Td 2010-02-16 Completed University of 00:00:00 [facility] Td 2010-02-16 Completed University of 00:00:00 [facility] Td 2010-02-16 Completed University of 00:00:00 [facility] Td 2010-02-16 Completed University of 00:00:00 [facility] Td 2010-02-16 Completed University of 00:00:00 [facility] Td 2010-02-16 Completed University of 00:00:00 [facility] Td 2010-02-16 Completed University of 00:00:00 [facility] Td 2010-02-16 Completed University of 00:00:00 [facility] Td 2010-02-16 Completed University of 00:00:00 [facility] Td 2010-02-16 Completed University of 00:00:00 [facility] Td 2010-02-16 Completed University of 00:00:00 [facility] Td 2010-02-16 Completed University of 00:00:00 [facility] Td 2010-02-16 Completed University of 00:00:00 [facility] 2010-02-16 Completed University of 00:00:00 [facility] Td 2010-02-16 Completed University of 00:00:00 [facility] Td 2010-02-16 Completed University of 00:00:00 [facility] Td 2010-02-16 Completed University of 00:00:00 [facility] Td 2010-02-16 Completed University of 00:00:00 [facility] Td 2010-02-16 Completed University of 00:00:00 [facility] Td 2010-02-16 Completed University of 00:00:00 [facility] Td 2010-02-16 Completed University of 00:00:00 [facility] Td 2010-02-16 Completed University of 00:00:00 [facility] Td 2010-02-16 Completed University of 00:00:00 [facility] Td 2010-02-16 Completed University of 00:00:00 [facility] Td 2010-02-16 Completed University of 00:00:00 [facility] Td 2010-02-16 Completed University of 00:00:00 [facility] Td 2010-02-16 Completed University of 00:00:00 [facility] Td 2010-02-16 Completed University of 00:00:00 [facility] Td 2010-02-16 Completed University of 00:00:00 [facility] Td 2010-02-16 Completed University of 00:00:00 [facility] Td 2010-02-16 Completed University of 00:00:00 [facility] Td 2010-02-16 Completed University of 00:00:00 [facility] Td 2010-02-16 Completed University of 00:00:00 [facility] Td 2010-02-16 Completed University of 00:00:00 [facility] Td 2010-02-16 Completed University of 00:00:00 [facility] Td 2010-02-16 Completed University of 00:00:00 [facility] Td 2010-02-16 Completed University of 00:00:00 [facility] Td 2010-02-16 Completed University of 00:00:00 [facility] Td 2010-02-16 Completed University of 00:00:00 [facility] Vital Signs Vital Name Observation Time Observation Value Comments Source BP Diastolic 2020-03-08 00:00:00 82 mm[Hg] [facility] Height 2020-03-08 00:00:00 64 [in_i] [facility] BMI (Body Mass 2020-03-08 00:00:00 29.7 kg/m2 [facility] [employer] [facility] Group BP Systolic 2020-03-08 00:00:00 137 mm[Hg] [facility] Body Weight 2020-03-08 00:00:00 173 [lb_av] [facility] BP Diastolic 2019-11-11 00:00:00 80 mm[Hg] [facility] BP Systolic 2019-11-11 00:00:00 117 mm[Hg] [facility] Body Weight 2019-11-11 00:00:00 170.8 [lb_av] [facility] BP Diastolic 2019-10-21 00:00:00 88 mm[Hg] [facility] BP Systolic 2019-10-21 00:00:00 136 mm[Hg] [facility] Systolic blood 2019-05-02 16:35:00 115 mm[Hg] Univer sity of pressure [facility] Diastolic blood 2019-05-02 16:35:00 86 mm[Hg] Unive rsity of [facility] Heart rate 2019-05-02 16:35:00 113 /min Universi ty [facility] Body temperature 2019-05-02 16:35:00 36.78 Elidia [facility] Res[facility] rate 2019-05-02 16:35:00 18 /min [facility] Body height 2019-05-02 16:35:00 [facility]6 [facility] Body weight 2019-05-02 16:35:00 78.019 kg [facility] BMI 2019-05-02 16:35:00 29.52 kg/m2 [facility] Systolic blood 2019-04-14 16:58:00 112 mm[Hg] Univer sity of pressure [facility] Diastolic blood 2019-04-14 16:58:00 80 mm[Hg] Unive rsity of pressure [facility] Heart rate 2019-04-14 16:58:00 81 /min Universi ty [facility] Body temperature 2019-04-14 16:58:00 36.5 Elidia Univ ersity of [facility] Respiratory rate 2019-04-14 16:58:00 18 /min Univ ersity of [facility] Body weight 2019-04-14 16:58:00 81.194 kg Universi ty of [facility] BMI 2019-04-14 16:58:00 30.73 kg/m2 Universi ty of [facility] Systolic blood 2019-03-24 15:26:00 106 mm[Hg] Univer sity of pressure [facility] Diastolic blood 2019-03-24 15:26:00 81 mm[Hg] Unive rsity of pressure [facility] Heart rate 2019-03-24 15:26:00 72 /min Universi ty of [facility] Body temperature 2019-03-24 15:26:00 36.72 Elidia Univ ersity of [facility] Respiratory rate 2019-03-24 15:26:00 18 /min Univ ersity of [facility] Body height 2019-03-24 15:26:00 162.6 cm Universi ty of [facility] Body weight 2019-03-24 15:26:00 80.74 kg Universi ty of [facility] BMI 2019-03-24 15:26:00 30.55 kg/m2 Universi ty of [facility] Systolic blood 2019-03-14 00:02:42 111 mm[Hg] Univer sity of pressure [facility] Diastolic blood 2019-03-14 00:02:42 72 mm[Hg] Unive rsity of pressure [facility] Heart rate 2019-03-14 00:02:42 83 /min Universi ty of [facility] Respiratory rate 2019-03-14 00:02:42 14 /min Univ ersity of [facility] Oxygen saturation in 2019-03-14 00:02:42 100 /min [facility] Arterial blood by [facility] Pulse oximetry Branch Body temperature 2019-03-13 15:17:00 36.72 Elidia Univ ersity of [facility] Body height 2019-03-13 15:17:00 162.6 cm Universi ty of [facility] Body weight 2019-03-13 15:17:00 78.926 kg Universi ty of [facility] BMI 2019-03-13 15:17:00 29.87 kg/m2 Universi ty of [facility] Systolic blood 2019-03-10 19:52:00 112 mm[Hg] Univer sity of pressure [facility] Diastolic blood 2019-03-10 19:52:00 76 mm[Hg] Unive rsity of pressure [place] [facility] Heart rate 2019-03-10 19:52:00 92 /min Universi ty of [place] [facility] Body temperature 2019-03-10 19:52:00 36.56 Elidia Univ ersity of [place] [facility] Respiratory rate 2019-03-10 19:52:00 18 /min Univ ersity of [place] [facility] Body height 2019-03-10 19:52:00 162.6 cm Universi ty of [place] [facility] Body weight 2019-03-10 19:52:00 78.926 kg Universi ty of [place] [facility] BMI 2019-03-10 19:52:00 29.87 kg/m2 Universi ty of [place] [facility] Systolic blood 2019-03-08 17:17:00 118 mm[Hg] Univer sity of pressure [place] [facility] Diastolic blood 2019-03-08 17:17:00 68 mm[Hg] Unive rsity of pressure [place] [facility] Heart rate 2019-03-08 17:17:00 79 /min Universi ty of [place] [facility] Body temperature 2019-03-08 17:17:00 36.94 Elidia Univ ersity of [place] [facility] Respiratory rate 2019-03-08 17:17:00 18 /min Univ ersity of [place] [facility] Body weight 2019-03-08 17:17:00 79.243 kg Universi ty of [place] [facility] BMI 2019-03-08 17:17:00 29.52 kg/m2 Universi ty of [place] [facility] Oxygen saturation in 2019-03-08 17:17:00 99 /min University of Arterial blood by [place] [facility] Pulse oximetry Branch Systolic blood 2019-03-07 03:49:00 132 mm[Hg] Univer sity of pressure [place] [facility] Diastolic blood 2019-03-07 03:49:00 89 mm[Hg] Unive rsity of pressure [place] [facility] Heart rate 2019-03-07 03:49:00 100 /min Universi ty of [place] [facility] Body temperature 2019-03-07 03:49:00 36.94 Elidia Univ ersity of [place] [facility] Respiratory rate 2019-03-07 03:49:00 18 /min Univ ersity of [place] [facility] Oxygen saturation in 2019-03-07 03:49:00 100 /min University of Arterial blood by [employer] rafael Pulse oximetry Branch Body weight 2019-03-07 03:37:00 79.379 kg Universi ty of [place] [facility] BMI 2019-03-07 03:37:00 29.57 kg/m2 Universi ty of [place] [facility] Systolic blood 2018-09-27 15:20:00 98 mm[Hg] Univer sity of pressure [place] [facility] Diastolic blood 2018-09-27 15:20:00 66 mm[Hg] Unive rsity of pressure [place] [facility] Heart rate 2018-09-27 15:20:00 82 /min Universi ty of [place] [facility] Body temperature 2018-09-27 15:20:00 36.56 Elidia Univ ersity of [place] [facility] Respiratory rate 2018-09-27 15:20:00 20 /min Univ ersity of [place] [facility] Body height 2018-09-27 15:20:00 163.8 cm Universi ty of [place] [facility] Body weight 2018-09-27 15:20:00 79.334 kg Universi ty of [place] [facility] BMI 2018-09-27 15:20:00 29.56 kg/m2 Universi ty of [place] [facility] Heart rate 2018-09-21 15:40:00 72 /min Universi ty of [place] [facility] Body temperature 2018-09-21 15:40:00 36.78 Elidia Univ ersity of [place] [facility] Respiratory rate 2018-09-21 15:40:00 18 /min Univ ersity of [place] [facility] Body height 2018-09-21 15:40:00 162.6 cm Universi ty of [place] [facility] Body weight 2018-09-21 15:40:00 80.151 kg Universi ty of [place] [facility] BMI 2018-09-21 15:40:00 30.33 kg/m2 Universi ty of [place] [facility] Systolic blood 2018-09-21 15:40:00 126 mm[Hg] Univer sity of pressure [place] [facility] Diastolic blood 2018-09-21 15:40:00 68 mm[Hg] Unive rsity of pressure [place] [facility] Systolic blood 2018-09-20 13:37:00 110 mm[Hg] Univer sity of pressure [place] [facility] Diastolic blood 2018-09-20 13:37:00 77 mm[Hg] Unive rsity of pressure [place] [facility] Heart rate 2018-09-20 13:37:00 84 /min Universi ty of [place] [facility] Body temperature 2018-09-20 13:37:00 36.5 Elidia [facility] Body weight 2018-09-20 13:37:00 80.797 kg [facility] BMI 2018-09-20 13:37:00 30.10 kg/m2 Universi [facility] Systolic blood 2018-09-13 20:12:00 115 mm[Hg] Univer sity of pressure [facility] Diastolic blood 2018-09-13 20:12:00 77 mm[facility]Hg] [facility] Heart rate 2018-09-13 20:12:00 82 /min [facility] Body temperature 2018-09-13 20:12:00 37 Elidia [facility] Respiratory rate 2018-09-13 20:12:00 16 /min [facility] Body height 2018-09-13 20:12:00 163.8 cm [facility] Body weight 2018-09-13 20:12:00 81.421 kg [facility] BMI 2018-09-13 20:12:00 30.34 kg/m2 [facility] Procedures Procedure Date / Time Performing Source Performed Clinician EXTERNAL PROVIDER RECORDS 2020-05-09 Doctor Unassigned, [facility] versity [facility] 05:01:00 [place] [facility] XR, hysterosalpingogram 2019-10-21 [facility] 00:00:00 Group BI ULTRASOUND BREAST LIMITED 2019-05-11 Peter Gordillo [facility] RIGHT 19:20:12 Medical Branch ASSIGNMENT OF BENEFITS 2019-05-11 [facility] 18:49:44 [place] [facility] ASSIGNMENT OF BENEFITS 2019-04-06 Doctor Unassigned, [facility] 14:15:33 [facility] CONSENT FOR ORAL 2019-03-24 Doctor Unassigned, [place] o f [place] CONTRACEPTIVES 06:01:00 [facility] ASSIGNMENT OF BENEFITS 2019-03-16 Doctor [facility]igned, [facility] 14:33:11 [facility] US FIRST TRIMESTER 2019-03-13 Sejal Henriquez [facility] LESS THAN 14 WEEKS WITH 19:32:24 Medical Branch TRANSVAGINAL POCT TEST 2019-03-13 Yarima, Wakili [facility] 15:32:00 Medical Branch ADC / LCC - DRUG SCREEN 2019-03-13 [facility] TRIAGE 15:32:00 Medical Branch COMP. METABOLIC PANEL (96011) 2019-03-13 NiecytnedgarSejal [facility] 15:31:00 Medical Branch TOTAL BETA HCG ASSAY 2019-03-13 [facility] 15:31:00 Medical Branch CBC WITH DIFFERENTIAL 2019-03-13 [facility] 15:31:00 Medical Branch URINALYSIS 2019-03-13 [facility] ex 15:31:00 Medical Branch HB ABO GROUPING 2019-03-13 [facility] 15:31:00 Medical Branch CONSENT/REFUSAL FOR DIAGNOSIS 2019-03-13 Doctor Unassigned, [facility] AND TREATMENT 15:06:22 [place] [facility] [place] TOTAL BETA HCG ASSAY 2019-03-12 [facility] 14:30:00 Medical Branch [id number] CONSENT 2019-03-10 Doctor Unassigned, [facility] 06:01:00 [place] [facility] CONSENT/REFUSAL FOR DIAGNOSIS 2019-03-08 Doctor Unassigned, [facility] AND TREATMENT 17:04:20 [place] [facility] HB ABO GROUPING 2019-03-07 Singer [facility] xa 05:24:00 Medical Branch US FIRST TRIMESTER 2019-03-07 Singer Dangelo [facility] LESS THAN 14 WEEKS WITH 04:20:17 Medical Branch TRANSVAGINAL POCT TEST 2019-03-07 [facility] 03:49:00 [facility] URIC ACID 2019-03-07 [facility] xa 03:48:00 Medical Branch COMP. METABOLIC PANEL ([id number]) 2019-03-07 Eddy, Dangelo [facility] 03:48:00 Medical Branch TOTAL BETA HCG ASSAY 2019-03-[address] [facility] 03:48:00 Medical Branch CBC WITH DIFFERENTIAL 2019-03-07 [facility] 03:48:00 Medical Branch [facility]YSIS 2019-03-[facility] 03:[facility] Medical Branch NOTICE OF PRIVACY PRACTICES 2019-03-07 Doctor Unassigned, [facility] 03:33:48 [facility] [facility] CONSENT/REFUSAL FOR DIAGNOSIS 2019-03-07 Doctor Unassigned, [facility] AND TREATMENT 03:32:46 [facility] Partial Salpingectomy 2019-02-16 [facility] 00:00:00 Group POCT TEST 2018-09-27 [facility] o f [place] 17:14:00 Medical Branch EXTERNAL PROVIDER RECORDS 2018-09-21 Doctor Unassigned, [facility] 05:01:00 [facility] [facility] POCT URINALYSIS W/O SPECIFIC 2018-09-20 Zeynep Torres [facility] 13:39:00 Medical Branch POCT TEST 2018-09-13 Zeynep Torres [facility] 20:16:00 Medical Branch POCT URINALYSIS W/O SPECIFIC 2018-09-13 Zeynep Torres [facility] 20:16:00 Medical Branch ASSIGNMENT OF BENEFITS 2018-09-13 Doctor Unasslucrecia, [facility] 19:27:31 [facility] [facility] Section 2007-02-16 [facility] 00:00:00 Group Encounters Start End Encounter Admission Attending Care Care Encounter Source Date/Time Date/Time Type Type Clinicians Facility Department ID 2020-12-28 Outpatient G_Pappas [facility] [id number] [facility] 17:06:11 [facility] 2020-05-09 2020-05-09 Orders Doctor DEREK [id number] Univers 00:00:00 00:00:00 Only Unassigned, MATT [id number] ity of [place] [facility] [id number] Yung as [id number] [facility] rafael 009 Branch 2020-05-08 2020-05-08 Patient CHEVY Martinez [id number] Univers 00:00:00 00:00:00 Outreach W[place] PRIMARY [id number] i ty of [facility] [id number] [id number] Me dical 388 Branch 2020-04-19 2020-04-19 Outpatient R MARY, [facility] [id number] Univers 10:30:00 10:30:00 AGUILA [id number] ity of [facility] 2020-03-09 2020-03-09 Telephone Pcp, [facility] [id number] Univers 00:00:00 00:00:00 Patient Jesse [id number] i ty of Does Not [place] [id number] Yung as Have A Professio [id number] Va dical [address] 2020-03-08 2020-03-08 Refugio GARCIA [place] - [id number] M atagor 00:00:00 00:00:00 Discovery maria Quinonez MD: [address] [place] [id number] , Ph. [phone] 2019-11-11 2019-11-11 Refugio GARCIA [place] - [id number] M atagor 00:00:00 00:00:00 Discovery maria Quinonez MD: [address] [place] [phone] , Ph. [phone] 2019-11-02 2019-11-02 Refugio GARCIA [place] - [id number] M atagor 00:00:00 00:00:00 Discovery maria Quinonez MD: [address] [place] [phone] , Ph. [phone] 2019-10-21 2019-10-21 Refugio GARCIA [place] - [id number] M atagor 00:00:00 00:00:00 Discovery maria Quinonez MD: [address] [place] [phone] , Ph. [phone] 2019-08-19 2019-08-19 [facility] [id number] Univers 00:00:00 00:00:00 Aguila Molina [id number] i ty of [id number] [facility] [id number] Va dical nal [address] [facility] 2019-05-28 2019-05-28 Outpatient R [facility] [id number] Univers 10:20:00 10:20:00 [id number] [facility] 2019-05-28 2019-05-28 [facility]patient [facility] [id number] Univers 10:20:00 10:20:00 ROMEL [facility] 2019-05-11 2019-05-11 [facility] 1.2.840.114 [id number] Univers 13:52:00 23:59:00 Encounter Peter Molina 350.1.13.10 ity [facility] [place] [phone] [facility] [address] 2019-05-11 2019-05-11 Outpatient R [facility] [id number] Univers 14:00:00 14:00:00 PETER [id number] [facility] 2019-05-11 2019-05-11 Outpatient [facility] [id number] Univers 00:00:00 00:00:00 [facility] 2019-05-11 2019-05-11 Orders Doctor DEREK 1.2.840.114 [id number] Univers 00:00:00 00:00:00 Only Unassigned, MATT 350.1.13.10 ity of [place] [facility] 4.2.7.2.686 [place]ung as [phone] [facility] [address] [place] 2019-05-02 2019-05-02 Outpatient [facility] [id number] Univers 16:15:00 16:15:00 PETER [facility] 2019-05-02 2019-05-02 Outpatient [facility] [id number] Univers 14:00:00 14:00:00 [facility]HEL[facility] [id number] [facility] 2019-05-02 Outpatient [facility] [id number] Univers 14:00:00 14:00:00 MICHELLE [facility] 2019-05-02 2019-05-02 [facility] [id number] Univers 10:51:00 11:51:19 Visit Peter Jesse 350.1.13.10 i [place] [phone] [place] [address] 2019-04-22 2019-04-22 Refill [facility] 1.2.840.114 [id number] Univers 00:00:00 00:00:00 Aguila Jesse 350.1.13.10 i ty [place] [phone] [place] [address] 2019-04-14 2019-04-14 Office [facility] 1.2.840.114 [id number] Univers 10:11:26 11:19:55 Visit Aguila Molina 350.1.13.10 i ty [place].2.[place] [phone] [place] dical [place]al [address] [place] [address] 2019-04-14 2019-04-14 Out[facility] [id number] Univers 10:30:00 10:30:00 AGUILA oropeza [facility] 2019-04-06 2019-04-06 Manager Transport Felicity, Yun Lab Main [facility] 1.2.8 40.114 [id number] Univers 08:17:43 08:32:43 Visit Aguila Hernandez 350.1.13.10 it[place] [phone] [place] [address] 2019-04-06 2019-04-06 Orders Doctor DEREK 1.2.840.114 [id number] Univers 00:00:00 00:00:00 Only Unassigned, MATT 350.1.13.10 ity of [place] [facility] 4.2.7.2.686 [place] [phone] [address] 2019-04-04 2019-04-04 Telephone Hernandez, [facility] 1.2.840.114 [id number] Univers 00:00:00 00:00:00 Aguila Molina 350.1.13.10 i ty [place] [phone] [place] [address] 2019-03-30 2019-03-30 Manager Transport Felicity, Adc Lab Main [facility] 1.2.8 40.114 [id number] Univers 08:19:00 08:34:00 Visit Aguila Hernandez 350.1.13.10 it[place] [phone] [place] [address] 2019-03-24 2019-03-24 Office Mary [facility] 1.2.840.114 [id number] Univers 09:01:40 10:09:01 Visit Aguila Jesse 350.1.13.10 i [place] [phone] [place] [address] 2019-03-24 2019-03-24 Orders Doctor DEREK 1.2.840.114 [id number] Univers 00:00:00 00:00:00 Only Unassigned, MATT 350.1.13.10 ity of [place] [facility] 4.2.7.2.686 [place] [phone] [address] 2019-03-23 2019-03-23 Manager Transport Feliciyt, Adc Lab Main [facility] 1.2.8 40.114 [id number] Univers 08:47:51 09:02:51 Visit Hernandez Aguila Molina 350.1.13.10 ity [place].2.[place] [phone] [place] [address] 2019-03-23 2019-03-23 Telephone Mary [facility] 1.2.840.114 [id number] Univers 00:00:00 00:00:00 Agiula Navaston 350.1.13.10 i ty [place].2.[place] [phone] [place] [address] 2019-03-19 2019-03-19 Manager Transport Felicity, Adc Lab Main [facility] 1.2.8 40.114 [id number] Univers 08:50:48 09:05:48 Visit Aguila Hernandez 350.1.13.10 ity [place].2.[place] [phone] [facility] [address] 2019-03-19 2019-03-19 Telephone Mary, [facility] 1.2.840.114 [id number] Univers 00:00:00 00:00:00 Aguila Molina 350.1.13.10 i ty [place].2.[place] [phone] [facility] [address] 2019-03-16 2019-03-16 Manager Transport Felicity, Adc Lab Main [facility] 1.2.8 40.114 [id number] Univers 08:34:31 08:49:31 Visit Aguila Hernandez 350.1.13.10 ity of [place].2.[place] [phone] [facility] [address] 2019-03-16 2019-03-16 Orders Doctor DEREK 1.2.840.114 [id number] Univers 00:00:00 00:00:00 Only Unassigned, MATT 350.1.13.10 ity of [place] [facility] 4.2.7.2.686 [place] [phone] [facility] [address] 2019-03-13 2019-03-13 Emergency [facility] 1.2.378.132 [id number] Univers 09:18:50 19:15:00 Sejal Molina 350.1.13.10 it[place]2.[place].2.[place] [phone] [facility] [address] 2019-03-12 2019-03-13 Manager Transport 1, Adc Lab [place] 1.2.840.114 [id number] Univers 08:12:05 16:37:07 Visit Aguila Hernandezton 350.1.13.10 ity of [place] 4[place]2.7.2.[place] [phone] [facility] [address] [place] 2019-03-10 2019-03-10 Routine Mary [facility] 1.2.840.114 [id number] Univers 13:32:11 14:31:34 Aguila Molina 350.1.13.10 ity of Visit [place].2.[place] [phone] [place]ical [place] [address] 2019-03-10 2019-03-10 Manager Transport Felicity, Adc Lab Main [facility] 1.2.8 40.114 [id number] Univers 12:24:12 12:39:12 Visit Aguila Hernandez 350.1.13.10 ity [place] 4[place]2.7.2.[place] [phone] [facility] [address] 2019-03-10 2019-03-10 Orders Doctor DEREK 1.2.840.114 [id number] Univers 00:00:00 00:00:00 Only Unassigned, MATT 350.1.13.10 ity of [place] [facility] 4.2.7.2.686 [place] [phone] [facility] [address] 2019-03-08 2019-03-08 Emergency [facility], [facility] 1.2.170.242 [id number] Univers 11:22:23 12:34:00 Jaz Molina 350.1.13.10 ity of [place] 4[place]2.7.2.[place] [phone] [address] 2019-03-08 2019-03-08 Manager Transport Felicity, Adc Lab Main [facility] 1.2.8 40.114 [id number] Univers 10:29:24 10:44:24 Visit aDngelo Eddy 350.1.13.10 ity of [place].2.[place] [phone] [place] [address] 2019-03-06 2019-03-07 Emergency Singer [facility] 1.2.809.673 [id number] Univers 21:39:04 01:10:00 Dangelo Molina 350.1.13.10 i ty of [place] 4[place]2.7.2.[place] [phone] [address] 2018-10-12 2018-10-12 Telephone [facility] 1.2.840.114 [id number] Univers 00:00:00 00:00:00 Zeynep N 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 350.1.13.10 it y of [facility] 4.2.7.2.686 [place] MATERNAL [phone] Med ical & CHILD [address] [place] [address] 2018-09-27 2018-09-27 Routine Trimester, [facility]st [facility] 1.2.840.114 [id number] Univers 10:12:55 11:03:28 Leanne Rosado HEALTH 350.1.13.10 ity of Visit CL[place]ICS [place] [phone] [address] 2018-09-21 2018-09-21 Routine Trimester, [facility] 1.2.840.114 [id number] Univers 10:23:51 11:11:59 Pedro Nick HEALTH 350.1.13.10 ity of Visit CLINICS [place]2.[place] [phone] [address] 2018-09-21 2018-09-21 Orders Doctor DEREK 1.2.840.114 [id number] Univers 00:00:00 00:00:00 Only Unassigned, MATT 350.1.13.10 ity of [place] [facility] 4.2.7.2.686 [place] [phone] [address] 2018-09-20 2018-09-20 Routine [facility] 1.2.707.587 [id number] Univers 08:21:29 09:46:18 Zeynep N 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 350.1.13.10 i ty of Visit [facility] 4.2.7.2.686 [place] MATERNAL [phone] [facility] & CHILD [address] [place] [address] 2018-09-20 2018-09-20 Telephone [facility] 1.2.840.114 [id number] Univers 00:00:00 00:00:00 Zeynep N 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 350.1.13.10 it y of [facility] 4.2.7.2.686 [place] MATERNAL [phone] Med ical & CHILD [address] [place] [address] 2018-09-20 2018-09-20 Telephone [facility] 1.2.840.114 [id number] Univers 00:00:00 00:00:00 Zeynep Riggins 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 350.1.13.10 it y of [address]686 [place] MATERNAL [phone] [address] 2018-09-13 2018-09-13 Initial [facility] 1.2.376.381 [id number] Univers 15:01:23 16:06:42 eZynep Riggins 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 350.1.13.10 i ty of Visit [facility] 4.2.7.2.686 [place] MATERNAL [phone] [address] 2018-09-13 2018-09-13 Orders Doctor DEREK 1.2.840.114 [id number] Univers 00:00:00 00:00:00 Only Unassigned, MATT 350.1.13.10 ity of [place] [address]686 [place] [phone] [address] 2018-09-10 2018-09-10 Telephone [facility] [id number] Univers 00:00:00 00:00:00 Rosario Gray 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 350.1.13.10 i ty of [address]686 [place] MATERNAL [phone] [address] Results Test Description Test Time Test Comments Results Result Comments Source test, urine 2019-11-02 10:09:00 Test Item Value Reference Range Interpretation Comme nts Test (test code = Test) negative [facility] [Units/volume] in Serum or [id number] 08:19:00 Test Item Value Reference Range Interpretation Comments HCG quantitative (test code = HCG <0.1 0-5 quantitative) [facility] LIMITED [id number] 19:23:20 Examination:BI ULTRASOUND BREAST LIMITED RIGHT Comparisons : None available HISTORY: Palpable mass between 9 and 11:00 by the referring physician. Mass is not felt by the patient herself. TECHNIQUE: Area of concern in upper outer right breast was evaluated in radial/antiradial/sagittal/coronal planesboth by the technologist and by me. Female technologist was present in the room during all imaging evaluations. FINDINGS: Dense fibroglandular breast tissue is detected throughout. No discrete solid orcystic mass detected by myself or by the technologist evaluation. CONCLUSIONS: No masses detected. .Recommendation:No additional workup is necessary BI-RADS Category:Right 1 - NegativeUnLegent Orthopedic HospitalUS FIRST TRIMESTER LESS THAN 14 WEEKS WITH [id number] 20:27:32 No intrauterine gestational sac/. Left adnexa mass measures 2.9 cm maximum diameter which has almost doubledin size compared to prior study seven days ago and demonstrates asonographic appearance suspicious for left tubal ectopic .Gynecologic consult is recommended. The findings ofthis study, including possibility of ectopic ,have been discussed with and acknowledged by Dr. Henriquez over the phone on03/13/2019 at 1:50 PM with readback. Preliminary Report Dictated by Resident: Micah Armas I, Gary Iqbal MD., have reviewed this study and agree with theabove report.US FIRST TRIMESTER LESS THAN 14 WEEKS WITH TRANSVAGINAL HISTORY: 28 years-old; Female; Vaginal Bleeding. R/o ECTOPIC COMPARISON: 03/06/2019 FINDINGS: LMP: 02/02/2019 Beta-hC.8 mIU/mL on 03/13/2019; 2679.5 on 03/12/2019; 2579.4 on03/10/2019 UTERUS: The uterus measures 9.7 x 4.4 x 5.1 cm (115 mL). No intrauterinegestational sac is noted. The endometrium is homogeneous and measures 1.6cm in thickness and contains small anechoic focus, suggestive of fluid. OVARIES: The right ovary measures 2.8 x 1.9 x 1.9 cm (5.4 mL). The leftovary measures 3.0 x 2.3 x 2.1 cm (7.4 mL). The left ovary contains ananechoic cystic structure with thickened wall measuring 1.6 x 1.1 x 1.1 cmmost compatible with a corpus luteum cyst. A round isoechoic lesion is seenin the left adnexa with no minimal peripheral and no intralesionalvascularity which contains a small anechoic focus centrally and measures2.8 x2.2 x 2.9 cm. This lesion is similar in configuration but larger insize compared to prior study 7 days ago which previously measured 1.5 x 1.0x 1.1 cm. CERVIX: Multiple nabothian cysts are noted with the largest measuring 0.9cm in diameter. No ?free fluid. [facility], Radiant Results Inft User - 03/13/20192:28 PM CSTUS FIRST TRIMESTER LESS THAN 14 WEEKS WITH TRANSVAGINALHISTORY: 28 years-old; Female; Vaginal Bleeding. R/o ECTOPIC COMPARISON: 03/06/2019FINDINGS: LMP: 02/02/2019Beta-hC.8 mIU/mL on 03/13/2019; 2679.5 on 03/12/2019; 2579.4 on03/10/2019UTERUS: The uterus measures 9.7 x 4.4 x 5.1 cm (115 mL). No intrauterinegestational sac is noted. The endometrium is homogeneous and measures 1.6cm in thickness and contains small anechoic focus, suggestive of fluid.OVARIES: The right ovary measures 2.8 x 1.9 x 1.9 cm (5.4 mL). The leftovary measures 3.0 x 2.3 x 2.1 cm (7.4 mL). The left ovarycontains ananechoic cystic structure with thickened wall measuring 1.6 x 1.1 x 1.1 cmmost compatiblewith a corpus luteum cyst. A round isoechoic lesion is seenin the left adnexa with no minimal peripheral and no intralesionalvascularity which contains a small anechoic focus centrally and measures2.8 x 2.2 x 2.9 cm. This lesion is similar in configuration but larger insize compared to prior study 7 days ago which previously measured 1.5 x 1.0x 1.1 cm.CERVIX: Multiple nabothian cysts are noted with the largest measuring 0.9cm in diameter.No free fluid.IMPRESSIONNo intrauterine gestational sac/.Left adnexa mass measures 2.9 cm maximum diameter which has almost doubledin size compared to derek or study seven days ago and demonstrates asonographic appearance suspicious for left tubal ectopic .Gynecologic consult is recommended.The findings of this study, including possibility of ectopic ,have been discussed with and acknowledged by Dr. Henriquez over the phone on03/13/2019 at 1:50 PM with readback.Preliminary Report Dictated by Resident: Gary Crews MD., have reviewed this study and agree with theabove report. [facility] ([facility]IT[facility])2019-03-13 17:33:00 Test Item Value Reference Range Interpretation Comments BETA HCG (test See_Comment [Automated m essage] code = The system whic h [id number]) generated this result transmit tamara reference range : Non- fe male and male patien ts: <5 mIU/mL. The reference range was not used to interpret this result as normal/abnormal . ROX (test code Gestational Age ? ? = ROX) ?Range (mIU/mL) 1-10 ?Weeks ?60-30833784-13 Weeks ?12171-91823796-87 Weeks ?5751-87261251-25 Weeks ?2551-354146 Biotin has been reported to cause a negative bias, interpret results relative to patient's use of biotin. [facility] Screen - ONCE [id number] 16:31:25 Test Item Value Reference Range Interpretation Comments ABO & RH (test code A Positive Performe d at [facility] = 20) Laboratory Serv [facility] Blood Bank1 [address] [place] [address] Free: [phone] A No. [id number] IAT (test code = Negative Performed a t [facility] 1185) Laboratory Serv [facility] [address] [place], [place] [address]Toll Free: [phone] A No. [id number] [facility] PasoCOMP. METABOLIC PANEL (35579)2019-03-13 16:06:00 Test Item Value Reference Range Interpretation Comments NA (test code = 137 mmol/L 135-145 9195082862) K (test code = 3.6 mmol/L 3.5-5 4175947464) CL (test code = 102 mmol/L 98-108 3203344606) CO2 TOTAL (test code = 29 mmol/L 23-31 3175148980) AGAP (test code = 2-16 3078472569) BUN (test code = 11 mg/dL 7-23 8691583776) GLUCOSE (test code = 98 mg/dL 70-110 0494312699) CREATININE (test code 0.58 mg/dL 0.5-1.04 = 1151097195) TOTAL BILI (test code 0.4 mg/dL 0.1-1.1 = 7225595889) CALCIUM (test code = 8.9 mg/dL 8.6-10.6 9880776798) T PROTEIN (test code = 7.5 g/dL 6.3-8.2 1642335531) ALBUMIN (test code = 4.2 g/dL 3.5-5 9856317822) ALK PHOS (test code = 66 U/L 34-122 4915098939) ALTv (test code = 16 U/L 5-35 1742-6) AST(SGOT) (test code = 22 U/L 13-40 6139753338) eGFR Calculation mL/min/1.73m2 (Non-) (test code = 5303131218) eGFR Calculation mL/min/1.73m2 () (test code = 7398071999) ROX (test code = ROX) Association of Glomerular Filtration Rate (GFR) and Staging of Kidney Disease* + -+ + ---+| GFR (mL/min/1.73 m2) ?| With Kidney Damage ?| ?Without Kidney Damage+ -------+ ------+ ---------+| ?>90 ?| ?Stage one ?| ? Normal ?+ --+ -+ ----+| ?60-89 ?| ?Stage two ?| ? Decreased GFR ? + -+ + ---+| ?30-59 ?| ?Stage three ?| ? Stage three ? + -+ + ---+| ?15-29 ?| ?Stage four ? | ? Stage four ?+ --+ -+ ----+| ?<15 (or dialysis) ? ?| ?Stage five ? | ? Stage five ?+ --+ -+ ----+ *Each stage assumes the associated GFR level has been in effect for at least three months. ?Stages 1 to 5, with or without kidney disease, indicate chronic kidney disease. Notes: Determination of stages one and two (with eGFR >59mL/min/1.73 m2) requires estimation of kidney damage for at least three months as defined by structural or functional abnormalities of the kidney, manifested by either:Pathological abnormalities or Markers of kidney damage (including abnormalities in the composition of the blood or urine or abnormalities in imaging tests). [facility]2020-01-26 15:58:00 Test Item Value Reference Range Interpretation Comments APPEARANCE (test code = Hazy Clear A 5709695146) COLOR (test code = Yellow Yellow 4833415439) PH (test code = 4.8-8.0 6865679742) SP GRAVITY (test code = 1.003-1.030 5514074166) GLU U QUAL (test code = Normal Normal 2641596216) BLOOD (test code = 2+ Negative A 0980207672) KETONES (test code = Negative Negative 5799397116) PROTEIN (test code = Negative Negative 2887-8) UROBILIN (test code = Normal Normal 7729017935) BILIRUBIN (test code = Negative Negative 3463191643) NITRITE (test code = Negative Negative 6149959797) LEUK MIKEY (test code = Negative Negative 9733149033) RBC/HPF (test code = <1 See_Comment [Autom ated message] 0688898497) The system [employer] generated this result transmitted ref erence range: 0 - 3 HP F. The reference range was not used to int erpret this result as normal/abnormal . WBC/HPF (test code = See_Comment [Autom ated message] 0306142743) The system [employer] generated this result transmitted ref erence range: 0 - 5 HP F. The reference range was not used to int erpret this result as normal/abnormal . BACTERIA (test code = Negative Negative 2044883323) SQ EPITH (test code = HPF 5215810180) Lab Interpretation (test Abnormal code = 57291-7) [facility] / [facility] - DRUG SCREEN [id number] 15:56:00 Test Item Value Reference Range Interpretation Comments BENZO U (test code = Negative Negative 4851426714) TALAT U (test code = Negative Negative 4225829771) AMPHET (test code = Negative Negative 8536097680) THC (test code = Negative Negative 9466509381) METHADONE (test code = Negative Negative 9123662572) Meth U (test code = Negative Negative 0039597184) OPIATES (test code = Negative Negative 6401213486) Cocaine Metabolite (test Negative Negative code = 5025844117) PROPOXY (test code = Negative Negative 6003188493) Tric U (test code = Negative Negative 6219867355) PCP (test code = Negative Negative 5913364173) OXYCOD (test code = Negative Negative 4747815951) ROX (test code = ROX) Urine Drug Cutoff Ranges Benzodiazepines: ? ? 150 ng/mLBarbiturates: ?200 ng/mLAmphetamine: ? 500 ng/mLCannabinoids: ?50 ?ng/mLMethadone: ? 200 ng/mLMethamphetamine: ? ? 500 ng/mL Opiates: ? 100 ng/mL or 2000 ng/mLCocaine: ? 150 ng/mLPropoxyphene: ?300 ng/mLTricyclics: ?300 ng/mLOxycodone: ? 100 ng/mLPCP: ? 25 ?ng/mL The results are to be used only for medical (i.e., treatment) purposes. Unconfirmed screening results must not be used for non-medical purposes (e.g., employment testing, legal testing). Lab Interpretation (test Normal code = 14993-1) [facility] WITH [id number] 15:42:00 Test Item Value Reference Range Interpretation Comments WBC (test code = See_Comment [Automated 0799-2) message] The sy stem which generated this result transmitted reference range : 4.30 - 11.10 10*3/?L. The reference range was not used to interpret this result as normal/abnormal . RBC (test code = See_Comment [Automated 470-8) message] The sy stem which generated this result transmitted reference range : 3.93 - 5.25 10*6/?L. The reference range was not used to interpret this result as normal/abnormal . HGB (test code = 13.1 g/dL 11.6-15 718-7) HCT (test code = 39.6 % 35.7-45.2 4544-3) MCV (test code = 83.2 fL 80.6-95.5 787-2) MCH (test code = 27.5 pg 25.9-32.8 785-6) MCHC (test code = 33.1 g/dL 31.6-35.1 786-4) RDW-SD (test code = 37.7 fL 39-49.9 L 50921-6) RDW-CV (test code = 12.4 % 12-15.5 788-0) PLT (test code = See_Comment [Automated 777-3) message] The sy stem which generated this result transmitted reference range : 166 - 358 10*3/ ?L. The reference r manjit was not used to interpret this result as normal/abnormal . MPV (test code = 8.7 fL 9.5-12.9 L 96983-7) NRBC/100 WBC (test See_Comment [Automat ed code = 7750190789) message] The system which generated this result transmitted reference range : 0.0 - 10.0 /100 WBCs. The refer ence range was not u sed to interpret th is result as normal/abnormal . NRBC x10^3 (test code <0.01 See_Comment [Auto mated = 4755089172) message] The s ystem which generated this result transmitted reference range : 10*3/?L. The reference range was not used to interpret this result as normal/abnormal . GRAN MAT (NEUT) % 70.4 % (test code = 770-8) IMM GRAN % (test code 0.50 % = 6980293697) LYMPH % (test code = 21.4 % 736-9) MONO % (test code = 6.6 % 5905-5) EOS % (test code = 0.9 % 713-8) BASO % (test code = 0.2 % 706-2) GRAN MAT x10^3(ANC) 6.44 10*3/uL 1.88-7.09 (test code = 6047958103) IMM GRAN x10^3 (test 0.05 10*3/uL 0-0.06 code = 2543501503) LYMPH x10^3 (test code 1.96 10*3/uL 1.32-3.29 = 731-0) MONO x10^3 (test code 0.60 10*3/uL 0.33-0.92 = 742-7) EOS x10^3 (test code = 0.08 10*3/uL 0.03-0.39 711-2) BASO x10^3 (test code <0.03 0.01-0.07 = 704-7) Lab Interpretation Abnormal (test code = 48965-2) [facility] Paso[facility] [id number] 15:32:00 Test Item Value Reference Range Interpretation Comments POCT PREG (test code = 1605) psoitive On board controls acceptable with present C Line (test code = 3574) POCT PREG LOT # (test code = 3575) [id number] POCT PREG TEST DATE (test code = 3576) Lab Interpretation (test code = Normal 61421-3) [facility] PasoHCG, QUANTITATIVE, [id number] 16:55:00 Test Item Value Reference Range Interpretation Comments BETA HCG (test See_Comment [Automated m essage] code = The system [employer] [id number]) generated this result transmit tamara reference range : Non- fe male and male patien ts: <5 mIU/mL. The reference range was not used to interpret this result as normal/abnormal . ROX (test code Gestational Age ? ? = ROX) ?Range (mIU/mL) 1-10 ?Weeks ?78-25955409-35 Weeks ?73153-86251822-85 Weeks ?6762-34549214-27 Weeks ?2092-689400 Biotin has been reported to cause a negative bias, interpret results relative to patient's use of biotin. [facility] Paso[facility] and Screen - ONCE [id number] 06:13:41 Test Item Value Reference Range Interpretation Comments ABO & RH (test code A Positive Performe d at [facility] = 20) Laboratory Serv [facility] Blood Bank1 [address] [place], [place] [address]Toll Free: [phone] A No. [id number] IAT (test code = Negative Performed a t [facility] 1185) Laboratory Serv [facility]1 [address] [address] [place], [place] [address]Toll Free: [phone] A No. [id number] [facility] HCG [id number] 04:48:00 Test Item Value Reference Range Interpretation Comments BETA HCG (test See_Comment [Automated m essage] code = The system [employer] [id number]) generated this result transmit tamara reference range : Non- fe male and male patien ts: <5 mIU/mL. The reference range was not used to interpret this result as normal/abnormal . ROX (test code Gestational Age ? ? = ROX) ?Range (mIU/mL) 1-10 ?Weeks ?92-99950507-13 Weeks ?66858-73585984-14 Weeks ?9006-57996712-44 Weeks ?9631-253488 Biotin has been reported to cause a negative bias, interpret results relative to patient's use of biotin. [facility] LESS THAN 14 WEEKS WITH [id number] 04:33:40Impression: 1. No intrauterine gestation is visualized. ?1.5 cm centrally hypoechoicleft adnexal mass, possibly representing tubal ectopic in theappropriate clinical setting. 2. ?Correlation with serial serum beta HCG is suggested. ?Follow-upultrasound may be obtained, if clinically indicated.3. No pelvic free fluid. RL: 2824AFC: 88688 End of Report Electronically signed by Josue Watts 03/06/2019 10:33 PMExam: Less than 14 Weeks Ultrasound, 03/06/2019 10:00 PM. Ordering Physician: DANGELO EDDY. History: , vaginal bleeding. Comparison: None. Technique: Early (lessthan 14 weeks) obstetric ultrasound was obtainedtransabdominally. ?Transvaginal images were obtainedfor better evaluationof the early gestation and adnexa. Findings: Uterus measures 8.1 x 3.9 x 4.4 cmin size. Endometrium measures 11 mm inthickness. Hypoechoic structures in the cervix likely represent nabothiancysts. No intrauterine gestation is visualized. Right ovary measures 1.2 x 1.1 x 2.3 cm in size. ?Left ovary measures 3.7 x2.1 x 2.2 cm in size. Hypoechoic structure in the left ovary likelyrepresents a dominant follicle. Centrally hypoechoic left adnexal structurewith thick soft tissue rimlocated inferior to the left ovary measures 1.1x 1.1 x 1.5 cm, with minimal internal color Doppler flow demonstrated. Bothovaries demonstrate normal color and pulsed Doppler flow. There is no pelvic free fluid. [facility], Radiant Results Inft User - 03/06/2019 10:35 PM CSTExam: Less than 14 Weeks PregnancyUltrasound, 03/06/2019 10:00 PM.Ordering Physician: DANGELO EDDY.History: , vaginal bleeding.Comparison: None.Technique: Early (less than 14 weeks) obstetric ultrasound was obtainedtransabdominally. Transvaginal images were obtained for better evaluationof the early gestation and adnexa.Findings: Uterus measures 8.1 x 3.9 x 4.4 cm in size. Endometrium measures 11 mm inthickness. Hypoechoic structures in the cervix likely represent nabothiancysts. No intrauterine gestation is visualized.Right ovary measures 1.2 x 1.1 x 2.3 cm in size. Left ovary measures 3.7 x2.1 x 2.2 cm in size. Hypoecho ic structure in the left ovary likelyrepresents a dominant follicle. Centrally hypoechoic left adnexal structurewith thick soft tissue rim located inferior to the left ovary measures 1.1x 1.1 x 1.5 cm,with minimal internal color Doppler flow demonstrated. Bothovaries demonstrate normal color and pulsed Doppler flow.There is no pelvic free fluid.IMPRESSIONImpression: 1. No intrauterine gestation is visualized. 1.5 cm centrally hypoechoicleft adnexal mass, possibly representing tubal ectopic in theappropriate clinical setting. 2. Correlation with serial serum beta HCG is suggested. Follow-upultrasound may be obtained, if clinically indicated.3. No pelvic free fluid.RL: 2824AFC: [id number] of Report [facility]. METABOLIC PANEL (78251)2019-03-07 04:32:00 Test Item Value Reference Range Interpretation Comments NA (test code = 137 mmol/L 135-145 7634247086) K (test code = 3.3 mmol/L 3.5-5 L 1987687554) CL (test code = 98 mmol/L 98-108 2290768057) CO2 TOTAL (test code = 30 mmol/L 23-31 0577115318) AGAP (test code = 2-16 2540942095) BUN (test code = 13 mg/dL 7-23 4332057086) GLUCOSE (test code = 112 mg/dL 70-110 H 5584820570) CREATININE (test code = 0.72 mg/dL 0.5-1.04 2290573188) TOTAL BILI (test code = 0.3 mg/dL 0.1-1.5 2784955348) CALCIUM (test code = 9.2 mg/dL 8.6-10.6 2341107207) T PROTEIN (test code = 7.6 g/dL 6.3-8.2 4110458728) ALBUMIN (test code = 4.3 g/dL 3.5-5 8101137081) ALK PHOS (test code = 83 U/L 34-122 3427950682) ALTv (test code = 17 U/L 5-35 1742-6) AST(SGOT) (test code = 24 U/L 13-40 1551164690) eGFR Calculation mL/min/1.73m2 (Non-) (test code = 7826741830) eGFR Calculation mL/min/1.73m2 () (test code = 5789946430) ROX (test code = ROX) Association of Glomerular Filtration Rate (GFR) and Staging of Kidney Disease* + --+ --+ ------+| GFR (mL/min/1.73 m2) ?| With Kidney Damage ?| ?Without Kidney Damage+ --------+ --------+ +| ?>90 ?| ?Stage one ?| ? Normal ?+ ---+ ---+ -------+| ?60-89 ?| ?Stage two ?| ? Decreased GFR ? + --+ --+ ------+| ?30-59 ?| ?Stage three ?| ? Stage three ? + --+ --+ ------+| ?15-29 ?| ?Stage four ? | ? Stage four ?+ ---+ ---+ -------+| ?<15 (or dialysis) ? ?| ?Stage five ? | ? Stage five ?+ ---+ ---+ -------+ *Each stage assumes the associated GFR level has been in effect for at least three months. ?Stages 1 to 5, with or without kidney disease, indicate chronic kidney disease. Notes: Determination of stages one and two (with eGFR >59mL/min/1.73 m2) requires estimation of kidney damage for at least three months as defined by structural or functional abnormalities of the kidney, manifested by either:Pathological abnormalities or Markers of kidney damage (including abnormalities in the composition of the blood or urine or abnormalities in imaging tests). Lab Interpretation Abnormal (test code = 16351-9) [facility] [id number] 04:32:00 Test Item Value Reference Range Interpretation Comments URIC ACID (test code = 2012347011) 4.1 mg/dL 2.9-6 Lab Interpretation (test code = Normal 74055-8) [facility]2020-01-20 04:25:00 Test Item Value Reference Range Interpretation Comments APPEARANCE (test code = Clear Clear 4481702182) COLOR (test code = Straw Yellow A 8572039969) PH (test code = 4.8-8.0 8538179330) SP GRAVITY (test code = 1.003-1.030 4225352467) GLU U QUAL (test code = Normal Normal 7997829484) BLOOD (test code = 1+ Negative A 3624476590) KETONES (test code = Negative Negative 6344233793) PROTEIN (test code = Negative Negative 2887-8) UROBILIN (test code = Normal Normal 9028372031) BILIRUBIN (test code = Negative Negative 5496890556) NITRITE (test code = Negative Negative 0522528973) LEUK MIKEY (test code = Negative Negative 1387736139) RBC/HPF (test code = <1 See_Comment [Autom ated message] 1154671899) The system [employer] generated this result transmitted ref erence range: 0 - 3 HP F. The reference range was not used to int erpret this result as normal/abnormal . WBC/HPF (test code = See_Comment [Autom ated message] 4991664268) The system [employer] generated this result transmitted ref erence range: 0 - 5 HP F. The reference range was not used to int erpret this result as normal/abnormal . BACTERIA (test code = Few Negative A 7740130345) SQ EPITH (test code = <1 HPF 3747627450) Lab Interpretation (test Abnormal code = 55486-9) [facility] WITH [id number] 04:16:00 Test Item Value Reference Range Interpretation Comments WBC (test code = See_Comment [Automated 7890-2) message] The sy stem which generated this result transmitted reference range : 4.30 - 11.10 10*3/?L. The reference range was not used to interpret this result as normal/abnormal . RBC (test code = See_Comment [Automated 789-8) message] The sy stem which generated this result transmitted reference range : 3.93 - 5.25 10*6/?L. The reference range was not used to interpret this result as normal/abnormal . HGB (test code = 13.2 g/dL 11.6-15 718-7) HCT (test code = 40.2 % 35.7-45.2 4544-3) MCV (test code = 84.1 fL 80.6-95.5 787-2) MCH (test code = 27.6 pg 25.9-32.8 785-6) MCHC (test code = 32.8 g/dL 31.6-35.1 786-4) RDW-SD (test code = 37.8 fL 39-49.9 L 53150-0) RDW-CV (test code = 12.4 % 12-15.5 788-0) PLT (test code = See_Comment [Automated 777-3) message] The sy stem which generated this result transmitted reference range : 166 - 358 10*3/ ?L. The reference r manjit was not used to interpret this result as normal/abnormal . MPV (test code = 9.0 fL 9.5-12.9 L 14307-7) NRBC/100 WBC (test See_Comment [Automat ed code = 4978118204) message] The system which generated this result transmitted reference range : 0.0 - 10.0 /100 WBCs. The refer ence range was not u sed to interpret th is result as normal/abnormal . NRBC x10^3 (test code <0.01 See_Comment [Auto mated = 6116164609) message] The s ystem which generated this result transmitted reference range : 10*3/?L. The reference range was not used to interpret this result as normal/abnormal . GRAN MAT (NEUT) % 65.0 % (test code = 770-8) IMM GRAN % (test code 0.60 % = 2888028589) LYMPH % (test code = 24.9 % 736-9) MONO % (test code = 7.6 % 5905-5) EOS % (test code = 1.5 % 713-8) BASO % (test code = 0.4 % 706-2) GRAN MAT x10^3(ANC) 7.03 10*3/uL 1.88-7.09 (test code = 7933194208) IMM GRAN x10^3 (test 0.06 10*3/uL 0-0.06 code = 6171714576) LYMPH x10^3 (test code 2.69 10*3/uL 1.32-3.29 = 731-0) MONO x10^3 (test code 0.82 10*3/uL 0.33-0.92 = 742-7) EOS x10^3 (test code = 0.16 10*3/uL 0.03-0.39 711-2) BASO x10^3 (test code 0.04 10*3/uL 0.01-0.07 = 704-7) Lab Interpretation Abnormal (test code = 71943-8) [facility] [id number] 03:49:00 Test Item Value Reference Range Interpretation Comments POCT PREG (test code = 1605) positive On board controls acceptable with present C Line (test code = 3574) POCT PREG LOT # (test code = 3575) [id number] POCT PREG TEST DATE (test 09/15/2020 code = 3576) Lab Interpretation (test code = Normal 86545-4) [facility] [id number] 17:14:00 Test Item Value Reference Range Interpretation Comments POCT PREG (test code = 1605) Negative On board controls acceptable with C Yes Line (test code = 3574) POCT PREG LOT # (test code = 3575) POCT PREG TEST DATE (test code = 3576) Lab Interpretation (test code = Normal 39701-4) [facility]-[id number] 14:18:00 RUN DATE: 09/22/18 [facility] PAGE 1 RUN TIME: 1927 Specimen Inquiry RUN USER: INTERFACE PATIENT: JAVIER CLIFTON LOC: RebeacNMU U #: [id number] AGE/SX: 28/F ROOM: [facility] RE09/16/18REG DR: Marito Coburn MD : 86 BED: A DIS: 09/18/18 STATUS: DIS IN TLOC: SPEC #: [id number] RECD: 09/17/18-800 STATUS: AMY HART #: [id number] AMOS: 09/17/18- SUBM DR: Marito Coburn MD ENTERED: 09/20/18 SP TYPE: CULDESAC OTHR DR: ORDERED: LEVEL IV/2 CODES: Y0S082 - SOFT TISSUES, N PROCEDURES: LEVEL IV (Incomplete) TISSUES: SOFT TISSUES, NOS - CUL DE SAC ADHESION AND LEFT CORNEAL ADHESIONS CLINICAL HISTORY 28 year old, ectopic (gaetano) FINAL DIAGNOSIS Designated "culdesac adhesion": - connective tissue with fibrosis Left cornual adhesions, biopsy: - connectivetissue with fibrosis CPT code(s): 67625 x2 pkg/wpd 09/22/18 GROSS DESCRIPTION ANATOMIC SOURCE OF TISSUE (per Requisition): 1. [place] adhesion 2. Left cornual adhesions Each specimen is labeled with the patient's name and medical record number. Specimen #1 is designated "culdesac adhesion" and consists of a 0.7 x 0.7 x 0.2 cm kidd-red, cauterized fibrofatty firm tissue, entirely submitted as A1. Specimen #2 is designated "left cornual adhesions" and consists of a 0.8 x 0.3 x 0.1 cm kidd-red, cauterized soft tissue, submitted in toto labeled B1. devin/gaetano 09/20/18 @ 4746 CONTINUED ON NEXT PAGE RUN DATE: 09/22/18 [facility] PAGE 2 RUN TIME: 1927 Specimen Inquiry RUN USER: INTERFACE SPEC #: [id number] PATIENT: JAVIER CLIFTON #[id number] (Contin ued) MICROSCOPIC DESCRIPTION Specimen #1 consists of connective tissue with fibrosis. Specimen #2 consists of connective tissue with fibrosis. cl/jing 09/22/18 Signed Marilou Murcia 09/22/18 1418 END OF REPORT POCT URINALYSIS W/O SPECIFIC [id number] 13:39:00 Test Item Value Reference Range Interpretation Comments POCT PH U (test code = 3254) . 5-8 POCT U LEUK EST (test code = 3263) . Negative - Negative POCT U NIT (test code = 3262) . Negative - Negative POCT U PROT (test code = 3259) 2+ Negative - Negative POCT U GLU (test code = 3256) neg Negative - Negative POCT U KETONE (test code = 3258) . Negative - Negative POCT U BLD (test code = 3257) . Negative - Negative [facility] W/O SPECIFIC [id number] 13:39:00 Test Item Value Reference Range Interpretation Comments POCT PH U (test code = 3254) . 5-8 POCT U LEUK EST (test code = 3263) . Negative - Negative POCT U NIT (test code = 3262) . Negative - Negative POCT U PROT (test code = 3259) 2+ Negative - Negative POCT U GLU (test code = 3256) neg Negative - Negative POCT U KETONE (test code = 3258) . Negative - Negative POCT U BLD (test code = 3257) . Negative - Negative [facility] Paso[facility]AT[facility] C VIRUS [id number] 04:25:00 Test Item Value Reference Range Interpretation Comments HEPATITIS C RNA BY NONE DET The quant itative PCR (test code = range of th is assay HCVRNAPCR) is 15 IU/mL to 100million IU/mL.Performed At: Lab[address] [id number] ra Eugenie NICHOLS Ph:[phone] HEPATITIS C RNA HCV Not Detected () PCR DARIO (test IU/mL code = HCVRNAPCRQ) - US TRANSVAGINAL [id number] 09:35:00 Patient Name: JAVIER CLIFTON Unit No: [id number] EXAMS: CPT CODE: [id number] US TRANSVAGINAL W/PELVIS 48779 Exam: Pelvic ultrasound. Exam date: September 18, 2018. CLINICAL HISTORY: Evaluate for IUP. COMPARISON: September 17, 2018 and September 16, 2018. Real-time transabdominal and transvaginal imaging of the pelvis with spectral Doppler analysis and color-flow imaging demonstrates a 90x 42 x 56 mm uterus. The endometrium measures 10 mm. No definite intrauterine gestation is noted. Multiple cystic structures are identified in the endometrial cavity but none have the appearanceof gestational sac at this time. The right ovary measures 26 x 25 x 22 mm and has a normal sonographic appearance. The left ovary measures 34 x 18 x 25 mm and has a normal sonographic appearance. Moderate amount of minimally echogenic free fluid is identified. The previously noted soft tissuedensity most compatible with blood clot in the cul-de-sac/left adnexal region is no longer identified. No evidence of an extrauterine gestation is identified. IMPRESSION: 1. Multiple cystic areas within the endometrium. None of these have the appearance of a gestational sac at this time. 2. Interval removal of the previously described probable blood clot in the cul-de-sac/leftadnexal region. 3. No evidence of an extrauterine gestation. 4. Moderate amount of minimallyechogenic free fluid is most likely postoperative. Follow-up hCG levels and repeat exam as cli nically indicated is recommended. at 0935 Reported and signed by: Edelmira Church MD CC: Technologist: Dania Toledo RDMS Probe: [id number] Trnscrbd D/ (0935) t.CARLI Jain Print D/T: S: 09/18/2018 (0938) [facility] NAME: ELODIAJAVIER Radiology Department PHYS: Marito Lewis MD [address] : 1990 AGE: 28 SEX: F [place] [address] LOC: Cam.2602 A PHONE #: [phone] EXAM DATE: 09/18/2018 STATUS: ADM IN FAX #: [phone] RAD NO: Page 1 Signed Report Patient Name: JAVIER CLIFTON Unit No: [id number] EXAMS: CPT CODE: [id number] US TRANSVAGINAL W/PELVIS 96861 <Continued> [facility] NAME: JAVIER CLIFTON Radiology Department PHYS: Marito Lewis MD [address] : 1990 AGE: 28 SEX: F [place] [address] LOC: Josephine Zelaya PHONE #: [phone] EXAM DATE: 09/18/2018 STATUS: ADM IN FAX #: [phone] RAD NO: Page 2 Signed Report- US PELVIS [id number] 09:35:00 Patient Name: JAVIER CLIFTON Unit No: [id number] EXAMS: CPT CODE: [id number] US PELVIS COMPLETE 77350 Exam: Pelvic ultrasound. Exam date: September 18, 2018. CLINICAL HISTORY: Evaluate for IUP. COMPARISON: September 17, 2018 and September 16, 2018. Real-time transabdominal and transvaginal imaging of the pelvis with spectral Doppler analysis and color-flow imaging demonstrates a 90x 42 x 56 mm uterus. The endometrium measures 10 mm. No definite intrauterine gestation is noted. Multiple cystic structures are identified in the endometrial cavity but none have the appearanceof gestational sac at this time. The right ovary measures 26 x 25 x 22 mm and has a normal sonographic appearance. The left ovary measures 34 x 18 x 25 mm and has a normal sonographic appearance. Moderate amount of minimally echogenic free fluid is identified. The previously noted soft tissuedensity most compatible with blood clot in the cul-de-sac/left adnexal region is no longer identified. No evidence of an extrauterine gestation is identified. IMPRESSION: 1. Multiple cystic areas within the endometrium. None of these have the appearance of a gestational sac at this time. 2. Interval removal of the previously described probable blood clot in the cul-de-sac/leftadnexal region. 3. No evidence of an extrauterine gestation. 4. Moderate amount of minimallyechogenic free fluid is most likely postoperative. Follow-up hCG levels and repeat exam as cli nically indicated is recommended. at 0935 Reported and signed by: Edelmira Church MD CC: Technologist: Dania Toledo RDMS Probe: Trnscrbd D/ (0935) [email or web address] Orig Print D/T: S: 09/18/2018 (0938) [facility] NAME: JAVIER CLIFTON Radiology Department PHYS: Marito Lewis MD [address] : 1990 AGE: 28 SEX: F [place], [place] [address] LOC: F.2602 A PHONE #: [phone] EXAM DATE: 09/18/2018 STATUS: ADM IN FAX #: [phone] RAD NO: Page 1 Signed Report Patient Name: JAVIER CLIFTON Unit No: [id number] EXAMS: CPT CODE: [id number] US PELVIS COMPLETE 46472 <Continued> [facility] NAME: JAVIER CLIFTON Radiology Department PHYS: Marito Lewis MD [address] : 1990 AGE: 28 SEX: F [place], [place] [address] LOC: Rebeca2602 A PHONE #: [phone] EXAM DATE: 09/18/2018 STATUS: ADM IN FAX #: [phone] RAD NO: Page 2 Signed ReportHCG [id number] 04:47:00 Test Item Value Reference Range Interpretation Comments HCG SERUM (test 855 INTERPRETATI ON:VALUES BETWEEN code = HCG) 15-20 milliInte rnational units/mL NEED T O BERETESTED WITHIN 48 HOURS . All units for these ranges ar e in milliInternatio nalunits/mL0-1 WK AFTER CONCEP TION 0-50 1-2 W KS AFTER CONCEPTION 40-3002-3 WKS A FTER CONCEPTION 100-1 ,0003-4 WKS AFTER CONCEPTIO N 500-6,0001-2 MO NTHS AFTER CONCEPTION 5,000-200,0002- 3 MONTHS AFTER CONCEPTION 10,000-100,0002 ND TRIMESTER 3,000-50,0003RD TRIMESTER 1 ,000-50,000 SPECIMENS WITH AN HCG LEVEL FROM 0-6 milliInternatio nalunits/mL SHOULD BE CONSI DERED NEGATIVE CBC W/AUTO [id number] 04:26:00 Test Item Value Reference Range Interpretation Comments WHITE BLOOD CELL (test code = WBC) 9.5 K/mm3 6.6-12.1 N RED BLOOD CELL (test code = RBC) 3.32 M/mm3 3.45-5.01 L HEMOGLOBIN (test code = HGB) 9.1 g/dL 10.7-13.9 L HEMATOCRIT (test code = HCT) 27.8 % 32.1-42.1 L MEAN CELL VOLUME (test code = MCV) 84 fL 84.1-94.8 L MEAN CELL HGB (test code = MCH) 27.4 pg 27-35 N MEAN CELL HGB CONCETRATION (test 32.7 gm/dL 32.2-34.1 N code = MCHC) RED CELL DISTRIBUTION WIDTH (test 12.9 % 12.4-16.5 N code = RDW) PLATELET COUNT (test code = PLT) 251 K/mm3 133-385 N IMMATURE PLATELET FRACTION (test 0.0 % 0.0-10.8 N code = IPF) MEAN PLATELET VOLUME (test code = 9.2 fl 9.1-12.7 N MPV) NEUTROPHIL % (test code = NT%) 90.9 % 56.5-79.4 H LYMPHOCYTE % (test code = LY%) 6.2 % 14.3-34.3 L MONOCYTE % (test code = MO%) 2.4 % 5.1-10.4 L EOSINOPHIL % (test code = EO%) 0.0 % 0.1-3.0 L BASOPHIL % (test code = BA%) 0.1 % 0.1-1.0 N NEUTROPHIL # (test code = NT#) 8.6 K/mm3 LYMPHOCYTE # (test code = LY#) 0.6 K/mm3 MONOCYTE # (test code = MO#) 0.2 K/mm3 EOSINOPHIL # (test code = EO#) 0 K/mm3 BASOPHIL # (test code = BA#) 0.0 K/mm3 RBC MORPHOLOGY REQUIRED (test code NORMAL NORMAL = RBCM) PLATELET MORPHOLOGY REQUIRED (test NORMAL NORMAL code = PLTMR) AG [id number] 08:27:00 Test Item Value Reference Range Interpretation Comments AG CARCINOEMBRYONIC (test code = 0.42 ng/mL 0.0-3.00 CEA) CA [id number] 08:27:00 Test Item Value Reference Range Interpretation Comments CA 125 (test code = CA125) 25.0 Units/mL 0-35.0 AG [id number] 08:27:00 Test Item Value Reference Range Interpretation Comments AG CARCINOEMBRYONIC (test code = 0.42 ng/mL 0.0-3.00 N CEA) CA [id number] 08:27:00 Test Item Value Reference Range Interpretation Comments CA 125 (test code = CA125) 25.0 Units/mL 0-35.0 N - US TRANSVAGINAL [id number] 08:25:00 Patient Name: JAVIER CLIFTON Unit No: [id number] EXAMS: CPT CODE: [id number] US TRANSVAGINAL W/PELVIS 52473 PELVIC ULTRASOUND, 09/17/2018: COMPARISON: Prior pelvic ultrasound dated September 16, 2018, 19:11 hours CLINICAL HISTORY: 4 WEEKS TECHNIQUE: Transabdominal and endovaginal scanning was performed. FINDINGS: The uterus measures 9.7 x 4.3 x 5.3 cm. The endometrial thickness was 19 mm. Endometrium was thickened. There are a few tiny 3 mm or smaller cystic foci withinthe endometrium. No definitive intrauterine gestational sac is seen. No uterine fibroids were visualized. The right ovary measures 4.1 x 2.6 x 2.4 cm and contains a 2 cm simple cyst/dominant follicle. In the left adnexa, there is a complex 9.2 x 4.1 x 6.8 cm predominantly solid mass. Thisis similar in appearance to the previous study. Possibility of chronic left adnexal ectopic should be considered. A separate left ovary was not seen. Less amount of free pelvic fluid isnoted on the current study. Trace amount of fluid identified in Morison's pouch. CONCLUSION: Large complex left adnexal mass. The possibility of chronic left adnexal ectopic must be cons idered. Findings were conveyed to Dr. Coburn at approximately 8:25 AM on September 17, 2018. FOR INTERNAL CODING PURPOSES ONLY RESULT CODE: CVR at 0825 Reported and signed by: Hood Jameson MD CC: Technologist: Jennifer Love RDNM Probe: [id number] Trnscrbd D/ (0825) [email or web address] Orig Print D/T: S: 09/17/2018 (1916) [facility] NAME: JERONIMO CLIFTON Radiology Department PHYS: Marito Lewis MD [address] : 1990 AGE: 28 SEX: F [place] [address] LOC: F.2602 A PHONE #: [phone] EXAM DATE: 09/17/2018 STATUS: ADM IN FAX #: [phone] RAD NO: Page 1 Signed Report Patient Name: JAVIER CLIFTON Unit No: [id number] EXAMS: CPT CODE: [id number] US TRANSVAGINAL W/PELVIS 07144 <Continued> [facility] NAME: JAVIER CLIFTON Radiology Department PHYS: Marito Lewis MD [address] : 1990 AGE: 28 SEX: F [place] [address] LOC: F.2602 A PHONE #: [phone] EXAM DATE: 09/17/2018 STATUS: ADM INFAX #: [phone] RAD NO: Page 2 Signed Report- US PELVIS [id number] 08:25:00 Patient Name: JAVIER CLIFTON Unit No: [id number] EXAMS: CPT CODE: [id number] US PELVIS COMPLETE 62700 PELVIC ULTRASOUND, 09/17/2018: COMPARISON: Prior pelvic ultrasound dated September 16, 2018, 19:11 hours CLINICAL HISTORY: 4 WEEKS TECHNIQUE: Transabdominal and endovaginal scanning was performed. FINDINGS: The uterus measures 9.7 x 4.3 x 5.3 cm. The endometrial thickness was 19 mm. Endometrium was thickened. There are a few tiny 3 mm or smaller cystic foci withinthe endometrium. No definitive intrauterine gestational sac is seen. No uterine fibroids were visualized. The right ovary measures 4.1 x 2.6 x 2.4 cm and contains a 2 cm simple cyst/dominant follicle. In the left adnexa, there is a complex 9.2 x 4.1 x 6.8 cm predominantly solid mass. Thisis similar in appearance to the previous study. Possibility of chronic left adnexal ectopic should be considered. A separate left ovary was not seen. Less amount of free pelvic fluid isnoted on the current study. Trace amount of fluid identified in Morison's pouch. CONCLUSION: Large complex left adnexal mass. The possibility of chronic left adnexal ectopic must be considered. Findings were conveyed to Dr. Coburn at approximately 8:25 AM on September 17, 2018. FOR INTERNAL CODING PURPOSES ONLY RESULT CODE: CVR at 0825 Reported and signed by: Hood Jameson MD CC: Technologist: Jennifer Love RDMS Probe: Trnscrbd D/ (824) [email or web address] Orig Print D/T: S: 09/17/2018 (1915) [facility] NAME: JERONIMO CLIFTON Radiology Department PHYS: Marito Lewis MD [address] : 1990 AGE: 28 SEX: F [place] [address] LOC: F.2602 A PHONE #: [phone] EXAM DATE: 09/17/2018 STATUS: ADM IN FAX #: [phone] RAD NO: Page 1 Signed Report Patient Name: JAVIER CLIFTON Unit No: [id number] EXAMS: CPT CODE: [id number] US PELVIS COMPLETE 05347 <Continued> [facility] NAME: JAVIER CLIFTON Radiology Department PHYS: Marito Lewis MD [address] : 1990 AGE: 28 SEX: F [place] [address] LOC: F.2602 A PHONE #: [phone] EXAM DATE: 09/17/2018 STATUS: ADM INFAX #: [phone] RAD NO: Page 2 Signed ReportHCG [id number] 05:44:00 Test Item Value Reference Range Interpretation Comments HCG SERUM (test 2136 INTERPRETATI ON:VALUES BETWEEN code = HCG) 15-20 milliInte rnational units/mL NEED T O BERETESTED WITHIN 48 HOURS . All units for these ranges ar e in milliInternatio nalunits/mL0-1 WK AFTER CONCEP TION 0-50 1-2 W KS AFTER CONCEPTION 40-3002-3 WKS A FTER CONCEPTION 100-1 ,0003-4 WKS AFTER CONCEPTIO N 500-6,0001-2 MO NTHS AFTER CONCEPTION 5,000-200,0002- 3 MONTHS AFTER CONCEPTION 10,000-100,0002 ND TRIMESTER 3,000-50,0003RD TRIMESTER 1 ,000-50,000 SPECIMENS WITH AN HCG LEVEL FROM 0-6 milliInternatio nalunits/mL SHOULD BE CONSI DERED NEGATIVE CBC W/AUTO [id number] 05:03:00 Test Item Value Reference Range Interpretation Comments WHITE BLOOD CELL (test code = WBC) 7.9 K/mm3 6.6-12.1 N RED BLOOD CELL (test code = RBC) 3.49 M/mm3 3.45-5.01 N HEMOGLOBIN (test code = HGB) 9.6 g/dL 10.7-13.9 L HEMATOCRIT (test code = HCT) 28.9 % 32.1-42.1 L MEAN CELL VOLUME (test code = MCV) 83 fL 84.1-94.8 L MEAN CELL HGB (test code = MCH) 27.5 pg 27-35 N MEAN CELL HGB CONCETRATION (test 33.2 gm/dL 32.2-34.1 N code = MCHC) RED CELL DISTRIBUTION WIDTH (test 13.0 % 12.4-16.5 N code = RDW) PLATELET COUNT (test code = PLT) 224 K/mm3 133-385 N IMMATURE PLATELET FRACTION (test 0.0 % 0.0-10.8 N code = IPF) MEAN PLATELET VOLUME (test code = 8.9 fl 9.1-12.7 L MPV) NEUTROPHIL % (test code = NT%) 68.2 % 56.5-79.4 N LYMPHOCYTE % (test code = LY%) 22.1 % 14.3-34.3 N MONOCYTE % (test code = MO%) 8.5 % 5.1-10.4 N EOSINOPHIL % (test code = EO%) 0.5 % 0.1-3.0 N BASOPHIL % (test code = BA%) 0.3 % 0.1-1.0 N NEUTROPHIL # (test code = NT#) 5.4 K/mm3 LYMPHOCYTE # (test code = LY#) 1.7 K/mm3 MONOCYTE # (test code = MO#) 0.7 K/mm3 EOSINOPHIL # (test code = EO#) 0.04 K/mm3 BASOPHIL # (test code = BA#) 0.0 K/mm3 RBC MORPHOLOGY REQUIRED (test code NORMAL NORMAL = RBCM) PLATELET MORPHOLOGY REQUIRED (test NORMAL NORMAL code = PLTMR) URINALYSIS [id number] 20:34:00 Test Item Value Reference Range Interpretation Comments UA COLOR (test code = COLU) YELLOW YELLOW UA APPEARANCE (test code = Slightly-Cloudy CLEAR APPU) UA GLUCOSE DIPSTICK (test NEGATIVE NEG code = DGLUU) UA BILIRUBIN DIPSTICK (test NEGATIVE NEG code = BILU) UA KETONE DIPSTICK (test code 2+ NEG A = KETU) UA SPECIFIC GRAVITY (test 1.027 1.001-1.035 N code = SGU) UA BLOOD DIPSTICK (test code NEG NEG = MAHENDRA) UA PH DIPSTICK (test code = 6.0 5-9 ENRIQUETA) UA PROTEIN DIPSTICK (test NEGATIVE NEG code = PROU) UA UROBILINIOGEN DIPSTICK NEGATIVE mg/dL NEG (test code = URO) UA NITRITE DIPSTICK (test NEG NEG code = KAROL) UA LEUKOCYTE ESTERASE NEG NEG DIPSTICK (test code = LEUU) UA WBC (test code = WBCU) 0-2 #/hpf NONE SEEN UA RBC (test code = RBCU) 0-2 #/hpf NONE SEEN UA EPITHELIAL CELLS (test RARE #/HPF RARE-FEW code = EPIU) UA BACTERIA (test code = RARE /HPF RARE-FEW BACU) UA MUCUS (test code = MUCU) 2+ NONE SEEN AG HEPATITIS B [id number] 20:29:00 Test Item Value Reference Range Interpretation Comments AG HEPATITIS B SURFACE (test code NONREACTIVE NONREACTIVE = HBSAG) AB HEPATITIS C [id number] 20:29:00 Test Item Value Reference Range Interpretation Comments AB HEPATITIS C (test code = NONREACTIVE NONREACTIVE HCVAB) SIGNAL TO CUTOFF (test code = 0.02 <0.80 N CUTOFF) AB HIV 1 20:29:00 Test Item Value Reference Range Interpretation Comments AB HIV 1 2 (test NONREACTIVE NONREACTIVE Done by S [employer] code = [id number]) 4th Gen HIV Ag/Ab Combo Screen AG HEPATITIS B [id number] 20:23:00 Test Item Value Reference Range Interpretation Comments AG HEPATITIS B SURFACE (test code NONREACTIVE NONREACTIVE = HBSAG) AB HEPATITIS C [id number] 20:23:00 Test Item Value Reference Range Interpretation Comments AB HEPATITIS C (test code = HCVAB) NONREACTIVE SIGNAL TO CUTOFF (test code = CUTOFF) <0.80 AB HIV 1 20:23:00 Test Item Value Reference Range Interpretation Comments AB HIV 1 2 (test NONREACTIVE NONREACTIVE Done by S [employer] code = [id number]) 4th Gen HIV Ag/Ab Combo Screen - US TRANSVAGINAL [id number] 20:16:00 Patient Name: JAVIER CLIFTON Unit No: [id number] Report Has Been Amended EXAMS: CPT CODE: [id number] US TRANSVAGINAL W/PELVIS 07549 Addendum- 09/16/2018 SIGNED 09/16/2018 ADDENDUM: [id number] US/TRANPL This report contains findings that may be critical to patient care. The findings were discussed with Dr. Feliciano at09/16/2018 8:14 PM [employer]. at 2016 Reported and signed by: Pieter Reese DO Transcribed: 09/16/2018(2016) [id number] Report TRANSABDOMINAL AND TRANSVAGINAL PELVIC ULTRASOUND INDICATION: Pelvic pain, pelvic mass. . HCG 2166. History of ectopic .. TECHNIQUE: Transabdominal and transvaginal pelvic ultrasound was performed with perez scale and Doppler images. COMPARISONS: None FINDINGS: TRANSABDOMINAL PELVIC ULTRASOUND: The uterus measures 9 x 4.4 x 4.1 cm. The endometrial stripe measures 2 cm thick. The right ovary measures 2.4 x 3.8 x 2.6 cm. There is a dominant follicle in the right ovary. There is a heterogenous 5.4 x 3.8 x 8.1 cm soft tissue echogenicity mass within the pelvis along the posterior uterine margin. There is no Doppler flow in this mass. The left ovary measures 2.7 x 2.7 x 2 cm. There is normal color Doppler blood flow to theleft ovary. There is a normal low resistance arterial and venous spectral Doppler waveform with peak systolic velocity of 12 cm/s. Transvaginal pelvic ultrasound was performed in order to better visualize the pelvic structures. TRANSVAGINAL PELVIC ULTRASOUND: There are benign incidental nabothian cysts. [facility] NAME: JAVIER CLIFTON Radiology Department PHYS: Marito Lewis MD [address] : 1990 AGE: 28 SEX: F [place], [place] [address] LOC: F.2602 A PHONE #: [phone] EXAM DATE: 09/16/2018 STATUS: ADM IN FAX #: [phone] RAD NO: Page 1 Signed Report (CONTINUED) Patient Name: JAVIER CLIFTON Unit No: [id number] Report Has Been Amended EXAMS: CPT CODE: [id number] US TRANSVAGINAL W/PELVIS 71613 &l t;Continued> The uterus measures 10 x 3.7 x 5.5 cm. The endometrium measures 1.6 cm thick.There are 2 tiny cysts within the endometrium measuring up to 3 mm. There is a 9.9 x 4.2 x 7.5 cm cystic and soft tissue heterogenous mass along the dorsal uterine margin and left adnexal region. There is no Doppler flow within this mass. The right ovary measures 2.2 x 3.7 x 2.3 cm. Thereis a benign 1.8 cm dominant follicle. There is normal color Doppler and spectral Doppler blood flow to the right ovary. There is a low resistance arterial and venous spectral Doppler waveform withpeak systolic velocity of 26 cm/s. The left ovary is not visualized via transvaginal technique. There is complex free pelvic fluid suspicious for hemorrhage. IMPRESSION: 1. Findings are suspicious for ruptured ectopic . There is no intrauterine gestation detected.There is a 9.9 x 4.2 x 7.5 cm cystic and soft tissue echogenicity heterogenous mass along the dorsal uterine margin and left adnexal region. No Doppler flow is detected in this mass and this may all represent a large blood clot. I suspect it also contains an occult ectopic . 2. There are two 3 mm tiny nonspecific cysts in the endometrial cavity measuring up to 3 mm. Neither of these cysts are convincing for gestational sac. 3. There is a moderate amount of complex free pelvic fluid suspicious for hemorrhage. at 2009 Reported and signed by: Pieter Reese DO CC: Technologist: Katherine Bajwa RDMS Probe: [id number] X1 Trnscrbd D/ (2009) t.[email or web address] Orig Print D/T: S: 09/16/2018 (2012) [facility] NAME: JAVIER CLIFTON Radiology Department PHYS: Marito Lewis MD [address] : 1990 AGE: 28 SEX: F [place] [address] LOC: F.2602 A PHONE #: [phone] EXAM DATE: 09/16/2018 STATUS: ADM IN FAX #: [phone] RAD NO: Page 2 Signed Report Patient Name: JAVIER CLIFTON Unit No: [id number] Report Has Been Amended EXAMS: CPT CODE: [id number] US TRANSVAGINAL W/PELVIS 91072 <Continued> [facility] NAME: JAVIER CLIFTON Radiology Department PHYS: Marito Lewis MD [address] : 1990 AGE: 28 SEX: F [place] [address] LOC: F.2602 A PHONE #: [phone] EXAM DATE: 09/16/2018 STATUS: ADM IN FAX #: [phone] RAD NO: Page 3 Signed Report- US PELVIS [id number] 20:16:00 Patient Name: JAVIER CLIFTON Unit No: [id number] Report Has Been Amended EXAMS: CPT CODE: [id number] US PELVIS COMPLETE 08906 Addendum- 09/16/2018 SIGNED 09/16/2018 ADDENDUM: [id number] US/USPELNOBC This report contains findings that may be critical to patient care. The findings were discussed with Dr. Dennis 09/16/2018 8:14 PM [employer]N. at 2016 Reported and signed by: Pieter Reese DO Transcribed: 09/16/2018 (2015) [id number] Report TRANSABDOMINAL AND TRANSVAGINAL PELVIC ULTRASOUND INDICATION: Pelvic pain, pelvicmass. . HCG 2166. History of ectopic .. TECHNIQUE: Transabdominal and transvaginal pelvic ultrasound was performed with perez scale and Doppler images. COMPARISONS: None FINDINGS: TRANSABDOMINAL PELVIC ULTRASOUND: The uterus measures 9 x 4.4 x 4.1 cm. The endometrial stripe measures 2 cm thick. The right ovary measures 2.4 x 3.8 x 2.6 cm. There is a dominant follicle in the right ovary. There is a heterogenous 5.4 x 3.8 x 8.1 cm soft tissue echogenicity mass within the pelvis along the posterior uterine margin. There is no Doppler flow in this mass. The left ovary measures 2.7 x 2.7 x 2 cm. There is normal color Doppler blood flow to the left ovary. There is a normal low resistance arterial and venous spectral Doppler waveform withpeak systolic velocity of 12 cm/s. Transvaginal pelvic ultrasound was performed in order to better visualize the pelvic structures. TRANSVAGINAL PELVIC ULTRASOUND: There are benign incidental nabothian cysts. [facility] NAME: JAVIER CLIFTON Radiology Department PHYS: Scarlett Davis MD [address] : 1990 AGE: 28 SEX: F [place], [place] [address] LOC: F.2602 A PHONE #: [phone] EXAM DATE: 09/16/2018 STATUS: ADMIN FAX #: [phone] RAD NO: Page 1 Signed Report (CONTINUED) Patient Name: JAVIER CLIFTON Unit No: [id number] Report Has Been Amended EXAMS: CPT CODE: [id number] US PELVIS COMPLETE 86461 <Continued> The uterus measures 10 x 3.7 x 5.5 cm. The endometrium measures 1.6 cm thick. There are 2 tiny cysts within the endometrium measuring up to 3 mm. There is a 9.9 x 4.2 x 7.5 cm cystic and soft tissue heterogenous mass along the dorsal uterine margin and left adnexal region. There is no Doppler flow within this mass. The right ovary measures 2.2 x 3.7 x 2.3 cm. There is a benign 1.8 cm dominant follicle. There is normal color Doppler and spectral Doppler bloodflow to the right ovary. There is a low resistance arterial and venous spectral Doppler waveform with peak systolic velocity of 26 cm/s. The left ovary is not visualized via transvaginal technique. There is complex free pelvic fluid suspicious for hemorrhage. IMPRESSION: 1. Findings are suspicious for ruptured ectopic . There is no intrauterine gestation detected. There is a 9.9 x 4.2 x 7.5 cm cystic and soft tissue echogenicity heterogenous mass along the dorsal uterine margin and left adnexal region. No Doppler flow is detected in this mass and this may all represent a large blood clot. I suspect it also contains an occult ectopic . 2. There are two 3 mm tiny nonspecific cysts in the endometrial cavity measuring up to 3 mm.Neither of these cysts are convincing for gestational sac. 3. There is a moderate amount of complex free pelvic fluid suspicious for hemorrhage. at 2009 Reported and signed by: Pieter Reese DO CC: Scarlett Metcalf MD Technologist: Katherine Bajwa RDMS Probe: Trnscrbd D/ (2009) [id number] Orig Print D/T: S: 09/16/2018 (2012) [facility] NAME: JAVIER CLIFTON Radiology Department PHYS: Scarlett Davis MD [address] : 1990 AGE: 28 SEX: F [place], [place] [address] LOC: F.2602 A PHONE #: [phone] EXAM DATE: 09/16/2018 STATUS: ADM IN FAX #: [phone] RAD NO: Page 2 Signed Report Patient Name: JAVIER CLIFTON Unit No: [id number] Report Has Been Amended EXAMS:CPT CODE: [id number] US PELVIS COMPLETE 39691 <Continued> [facility] NAME: JAVIER CLIFTON Radiology Department PHYS: Scarlett Davis MD [address] : 1990 AGE: 28 SEX: F [place], [place] [address] LOC: F.2602 A PHONE #: [phone] EXAM DATE: 09/16/2018 STATUS: ADM IN FAX #: [phone] RAD NO: Page 3 Signed Report- US TRANSVAGINAL [id number] 20:10:00 Patient Name: JAVIER CLIFTON Unit No: [id number] EXAMS: CPT CODE: [id number] US TRANSVAGINAL W/PELVIS 66424 TRANSABDOMINAL AND TRANSVAGINAL PELVIC ULTRASOUND INDICATION: Pelvic pain, pelvic mass. . HCG 2166. History of ectopic .. TECHNIQUE: Transabdominal and transvaginal pelvic ultrasound was performed with perez scale and Doppler images. COMPARISONS: None FINDINGS: TRANSABDOMINAL PELVIC ULTRASOUND: The uterus measures 9 x 4.4 x 4.1 cm. The endometrial stripe measures 2 cm thick. The right ovary measures 2.4 x 3.8 x 2.6 cm. There is a dominant follicle in the right ovary. There is a heterogenous 5.4 x 3.8 x 8.1 cm soft tissue echogenicity mass within the pelvis along the posterior uterine margin. There is no Doppler flow in this mass. The left ovary measures 2.7 x 2.7 x 2 cm. There is normal color Doppler blood flow tothe left ovary. There is a normal low resistance arterial and venous spectral Doppler waveform with peak systolic velocity of 12 cm/s. Transvaginal pelvic ultrasound was performed in order to better visualize the pelvic structures. TRANSVAGINAL PELVIC ULTRASOUND: There are benign incidental nabothian cysts. The uterus measures 10 x 3.7 x 5.5 cm. The endometrium measures 1.6 cm thick. There are 2 tiny cysts within the endometrium measuring up to 3 mm. There is a 9.9 x 4.2 x 7.5 cm cystic and soft tissue heterogenous mass along the dorsal uterine margin and left adnexal region. There is no Doppler flow within this mass. The right ovary measures 2.2 x 3.7 x 2.3 cm. There is a benign 1.8 cm dominant follicle. There is normal color Doppler and spectral Doppler blood flow to the right ovary. There is a low resistance arterial and venous spectral Doppler waveform with peak systolic velocity of 26 cm/s. The left ovary is not visualized via transvaginal technique. [facility] NAME: JAVIER CLIFTON Radiology Department PHYS: Marito Lewis MD [address] : 1990 AGE: 28 SEX: F [place], [place] [address] : F.2602 A PHONE #: [phone] EXAM DATE: 09/16/2018 STATUS: ADM IN FAX #: [phone] RAD NO: Page 1 Signed Report (CONTINUED) Patient Name: JAVIER CLIFTON Unit No: [id number] EXAMS: CPT CODE: [id number] US TRANSVAGINAL W/PELVIS 25959 <Continued> There is complex free pelvic fluid suspicious for hemorrhage. IMPRESSION: 1. Findings are suspicious for ruptured ectopic .There is no intrauterine gestation detected. There is a 9.9 x 4.2 x 7.5 cm cystic and soft tissue echogenicity heterogenous mass along the dorsal uterine margin and left adnexal region. No Doppler flow is detected in this mass and this may all represent a large blood clot. I suspect it also contains an occult ectopic . 2. There are two 3 mm tiny nonspecific cysts in theendometrial cavity measuring up to 3 mm. Neither of these cysts are convincing for gestational sac. 3. There is a moderate amount of complex free pelvic fluid suspicious for hemorrhage. at 2010 Reported and signed by: Pieter Reese DO CC: Technologist: Katherine Bajwa RDMS Probe: [id number] Trnscrbd D/ (2009) [id number] Orig Print D/T: S: 09/16/2018 (2012) [facility] NAME: JAVIER CLIFTON Radiology Department PHYS: Marito Lewis MD [address] : 1990 AGE: 28 SEX: F [place], [place] [address] LOC: F.2602 A PHONE #: [phone] EXAM DATE: 09/16/2018 STATUS: ADM IN FAX #: [phone] RAD NO: Page 2 Signed Report Patient Name: JAVIER ALONZO Unit No: [id number] EXAMS: CPT CODE: [id number] US TRANSVAGINAL W/PELVIS 86138 <Continued> [facility] NAME: AKIL CLIFTONINE Radiology Department PHYS: Marito Lewis MD [address] : 1990 AGE: 28 SEX: F [place] LOC: F.2602 A PHONE #: [phone] EXAM DATE: 09/16/2018 STATUS: ADM IN FAX #: [phone] RAD NO: Page 3 Signed Report- US PELVIS COMPLETE 2018-09-16 20:10:00 Patient Name: JAVIER CLIFTON Unit No: [id number] EXAMS: CPT CODE: [id number] US PELVIS COMPLETE 44030 TRANSABDOMINAL AND TRANSVAGINAL PELVIC ULTRASOUND INDICATION: Pelvic pain, pelvic mass. . HCG 2166. History of ectopic .. TECHNIQUE: Transabdominal and transvaginal pelvic ultrasound was performed with perez scale and Doppler images. COMPARISONS: None FINDINGS: TRANSABDOMINAL PELVIC ULTRASOUND: The uterus measures 9 x 4.4 x 4.1 cm. The endometrial stripe measures 2 cm thick. The right ovary measures 2.4 x 3.8 x 2.6 cm. There is a dominant follicle in the right ovary. There is a heterogenous 5.4 x 3.8 x 8.1 cm soft tissue echogenicity mass within the pelvis along the posterior uterine margin. There is no Doppler flow in this mass. The left ovary measures 2.7 x 2.7 x 2 cm. There is normal color Doppler blood flow tothe left ovary. There is a normal low resistance arterial and venous spectral Doppler waveform with peak systolic velocity of 12 cm/s. Transvaginal pelvic ultrasound was performed in order to better visualize the pelvic structures. TRANSVAGINAL PELVIC ULTRASOUND: There are benign incidental nabothian cysts. The uterus measures 10 x 3.7 x 5.5 cm. The endometrium measures 1.6 cm thick. There are 2 tiny cysts within the endometrium measuring up to 3 mm. There is a 9.9 x 4.2 x 7.5 cm cystic and soft tissue heterogenous mass along the dorsal uterine margin and left adnexal region. There is no Doppler flow within this mass. The right ovary measures 2.2 x 3.7 x 2.3 cm. There is a benign 1.8 cm dominant follicle. There is normal color Doppler and spectral Doppler blood flow to the right ovary. There is a low resistance arterial and venous spectral Doppler waveform with peak systolic velocity of 26 cm/s. The left ovary is not visualized via transvaginal technique. [facility] NAME: AKIL CLIFTONINE Radiology Department PHYS: Scarlett Davis MD [address] : 1990 AGE: 28 SEX: F [place], [place] [address] : F.2602 A PHONE #: [phone] EXAM DATE: 09/16/2018 STATUS: ADM IN FAX #: [phone] RAD NO: Page 1 Signed Report (CONTINUED) Patient Name: JAVIER CLIFTON Unit No: [id number] EXAMS: CPT CODE: [id number] US PELVIS COMPLETE 74683 <Continued> There is complex free pelvic fluid suspicious for hemorrhage. IMPRESSION: 1. Findings are suspicious for ruptured ectopic .There is no intrauterine gestation detected. There is a 9.9 x 4.2 x 7.5 cm cystic and soft tissue echogenicity heterogenous mass along the dorsal uterine margin and left adnexal region. No Doppler flow is detected in this mass and this may all represent a large blood clot. I suspect it also contains an occult ectopic . 2. There are two 3 mm tiny nonspecific cysts in the endometrial cavity measuring up to 3 mm. Neither of these cysts are convincing for gestational sac. 3. There is a moderate amount of complex free pelvic fluid suspicious for hemorrhage. at 2009 Reported and signed by: Pieter Reese DO CC: Scarlett Metcalf MD Technologist: Katherine Bajwa RDMS Probe: Trnscrbd D/ (2009) [id number] Orig Print D/T: S: 09/16/2018 (2012) [facility] NAME: JAVIER CLIFTON Radiology Department PHYS: Scarlett Davis MD [address] : 1990 AGE: 28 SEX: F [place], [place] [address] LOC: F.2602 A PHONE #: [phone] EXAM DATE: 09/16/2018 STATUS: ADM IN FAX #: [phone] RAD NO: Page 2 Signed Report Patient Name: JAVIER ALONZO Unit No: [id number] EXAMS: CPT CODE: [id number] US PELVIS COMPLETE 60639 <Continued> [facility] NAME: ELODIAJAVIER Radiology Department PHYS: Scarlett Davis MD [address] : 1990 AGE: 28 SEX: F [place], [place] LOC: F.2602 A PHONE #: [phone] EXAM DATE: 09/16/2018 STATUS: ADM IN FAX #: [phone] RAD NO: Page 3 Signed ReportAG HEPATITIS B SURFACE 2018-09-16 19:53:00 Test Item Value Reference Range Interpretation Comments AG HEPATITIS B SURFACE (test code NONREACTIVE NONREACTIVE = HBSAG) AB HEPATITIS C [id number] 19:53:00 Test Item Value Reference Range Interpretation Comments AB HEPATITIS C (test code = HCVAB) NONREACTIVE SIGNAL TO CUTOFF (test code = CUTOFF) <0.80 AB HIV 1 19:53:00 Test Item Value Reference Range Interpretation Comments AB HIV 1 2 (test code = [id number]) NONREACTIVE PROTHROMBIN [id number] 19:24:00 Test Item Value Reference Range Interpretation Comments PROTHROMBIN TIME PATIENT (test code 13.5 secs 10.4-12.4 H = PTP) THROMBOPLASTIN TIME [id number] 19:24:00 Test Item Value Reference Range Interpretation Comments THROMBOPLASTIN TIME PARTIAL (test 27.2 secs 22-38 N code = PTT) HCG [id number] 19:17:00 Test Item Value Reference Range Interpretation Comments HCG SERUM (test 2161 INTERPRETATI ON:VALUES BETWEEN code = HCG) 15-20 milliInte rnational units/mL NEED T O BERETESTED WITHIN 48 HOURS . All units for these ranges ar e in milliInternatio nalunits/mL0-1 WK AFTER CONCEP TION 0-50 1-2 W KS AFTER CONCEPTION 40-3002-3 WKS A FTER CONCEPTION 100-1 ,0003-4 WKS AFTER CONCEPTIO N 500-6,0001-2 MO NTHS AFTER CONCEPTION 5,000-200,0002- 3 MONTHS AFTER CONCEPTION 10,000-100,0002 ND TRIMESTER 3,000-50,0003RD TRIMESTER 1 ,000-50,000 SPECIMENS WITH AN HCG LEVEL FROM 0-6 milliInternatio nalunits/mL SHOULD BE CONSI DERED NEGATIVE CHEMISTRY 7 [id number] 18:48:00 Test Item Value Reference Range Interpretation Comments SODIUM (test code = NA) 139 mEq/L 135-145 N POTASSIUM (test code = K) 3.7 mEq/L 3.5-5.0 N CHLORIDE (test code = CL) 104 mEq/L 100-115 N CARBON DIOXIDE (test code = CO2) 28 mEq/L 22-31 N ANION GAP (test code = GAP) 11.10 10-20 N GLUCOSE (test code = GLU) 92 mg/dL 65-110 N BLOOD UREA NITROGEN (test code = 11 mg/dL 7-18 N BUN) GLOMERULAR FILTRATION RATE (test 98 ml/min >60 N code = GFR) CREATININE (test code = CREAT) 0.7 mg/dL 0.5-1.0 N CALCIUM (test code = CA) 7.7 mg/dL 8.4-10.2 L LIVER [id number] 18:48:00 Test Item Value Reference Range Interpretation Comments TOTAL PROTEIN (test code = PROT) 6.1 gm/dL 6.3-8.2 L ALBUMIN (test code = ALB) 3.3 gm/dL 3.4-4.8 L BILIRUBIN TOTAL (test code = BILT) 0.6 mg/dL 0.2-1.0 N BILIRUBIN DIRECT (test code = 0.1 mg/dL <0.2 N BILD) SGOT/AST (test code = AST) 15 units/L 15-37 N SGPT/ALT (test code = ALT) 19 units/L 12-78 N ALKALINE PHOSPHATASE TOTAL (test 67 units/L 46-116 N code = ALKP) CBC W/AUTO [id number] 18:32:00 Test Item Value Reference Range Interpretation Comments WHITE BLOOD CELL (test code = WBC) 12.6 K/mm3 6.6-12.1 H RED BLOOD CELL (test code = RBC) 3.86 M/mm3 3.45-5.01 N HEMOGLOBIN (test code = HGB) 10.6 g/dL 10.7-13.9 L HEMATOCRIT (test code = HCT) 31.8 % 32.1-42.1 L MEAN CELL VOLUME (test code = MCV) 82 fL 84.1-94.8 L MEAN CELL HGB (test code = MCH) 27.5 pg 27-35 N MEAN CELL HGB CONCETRATION (test 33.3 gm/dL 32.2-34.1 N code = MCHC) RED CELL DISTRIBUTION WIDTH (test 13.0 % 12.4-16.5 N code = RDW) PLATELET COUNT (test code = PLT) 281 K/mm3 133-385 N IMMATURE PLATELET FRACTION (test 0.0 % 0.0-10.8 N code = IPF) MEAN PLATELET VOLUME (test code = 9.0 fl 9.1-12.7 L MPV) NEUTROPHIL % (test code = NT%) 81.9 % 56.5-79.4 H LYMPHOCYTE % (test code = LY%) 11.8 % 14.3-34.3 L MONOCYTE % (test code = MO%) 5.7 % 5.1-10.4 N EOSINOPHIL % (test code = EO%) 0.1 % 0.1-3.0 N BASOPHIL % (test code = BA%) 0.2 % 0.1-1.0 N NEUTROPHIL # (test code = NT#) 10.3 K/mm3 LYMPHOCYTE # (test code = LY#) 1.5 K/mm3 MONOCYTE # (test code = MO#) 0.7 K/mm3 EOSINOPHIL # (test code = EO#) 0.01 K/mm3 BASOPHIL # (test code = BA#) 0.0 K/mm3 RBC MORPHOLOGY REQUIRED (test code NORMAL NORMAL = RBCM) PLATELET MORPHOLOGY REQUIRED (test NORMAL NORMAL code = PLTMR) POCT [id number] 20:16:00 Test Item Value Reference Range Interpretation Comments POCT PREG (test code = 1605) Positive On board controls acceptable with C Yes Line (test code = 3574) POCT PREG LOT # (test code = 3575) PO[facility] (test code = 3576[facility] SPECIFIC [id number] 20:16:00 Test Item Value Reference Range Interpretation Comments POCT PH U (test code = 3254) 6 mg/dl 5-8 POCT U LEUK EST (test code = neg Negative - Negative 3263) POCT U NIT (test code = 3262) neg Negative - Negative POCT U PROT (test code = 3259) trace Negative - Negative POCT U GLU (test code = 3256) neg Negative - Negative POCT U KETONE (test code = 3258) neg Negative - Negative POCT U BLD (test code = 3257) neg Negative - Negative [facility]
== END 2020-12-17 10:19 | disposition home or self-care (01) ==
LOC: ER 07:58
DX: N30.91 Cystitis, unspecified with hematuria (principal); F17.210 Nicotine dependence, cigarettes, uncomplicated
CPT/HCPCS: 81003; 81015; 81025; 87086; 87088; 96372; 99284